=== PATIENT | male | born 1965 | race Hispanic/Latino ===

== ENCOUNTER 2023-08-19 12:05 | Inpatient (IN) | payer OTHER ==
--- OUTSIDE RECORDS SUMMARY | 2023-08-20 11:02 | XMS REPORT | Continuity of Care Document ---
Author Name Unknown Address [address] [facility] [place] [address] [facility] Address [address] 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 Role Phone OMAIRA RAGSDALE Primary Care Physician Unavailable WILLIAM OSEGUERA Attending Clinician Unavailable VERONICA CRAWLEY Attending Clinician UnavailTC Wylie Attending Clinician Unavailable Omaira Ragsdale MD Attending Clinician OMAIRA RAGSDALE Attending Clinician Neha FRANKY [place] Attending Clinician UnavailGloria Carvalho LCSW Attending Clinician [phone] Lab, Ang - Db Attending Clinician Unavailable Doctor Unassigned, [place] Attending Clinician Homer Rivers RN, Dar Morales Attending Clinician Unavail able REGINALDO PROCTOR Attending Clinician Unavailab Ezio Daniel MD Attending Clinician [phone] Reginaldo Proctor MD Attending Clinician [phone] Sara Astorga MD Attending Clinician [phone] Santos RM, Tito Palmer Attending Clinician [phone] CONNELLY, ARNALDO S Attending Clinician Unavailable Connelly PAC, Arnaldo S Attending Clinician [phone] [email or web address] Attending Clinician Unavailable JESSA DUENAS Attending Clinician UnavailJessa Wilson MD Attending Clinician + [phone] Joanna Mcclellan RN Attending Clinician Unavailable CHHAYA MEDEL Attending Clinician Unavailjoanie Medel MD, Chhaya Chavis Attending Clinician [phone] Pcp-Lab Attending Clinician Unavailable Alannah RM, Holger Attending Clinician [phone] GIL CORDERO Admitting Clinician Unavailable REGINALDO PROCTOR Admitting Clinician Unavailab Reginaldo Ashford MD Admitting Clinician [phone] [email or web address] Admitting Clinician Unavailable Jessa Duenas MD Admitting Clinician + [phone] JESSA DUENAS Admitting Clinician Unavaila CHHAYA Grigsby Admitting Clinician Unavailjoanie nick Payers Payer Name Policy Type Policy Number Effective Date Expirati on Date Source SELF-PAY CI [id number] MEDICARE PART A AND B [id number] 2004 00:00:00 [place] [employer] [place] STANDARD LIFE - PHCS (PPO) [id number] 2020 00:00:00 [facility] - S\\T\\S HEALTHCARE STRATEGIES - CIGNA (PPO) [id number] Problems Condition Name Condition Details Condition Category Status Onset Date Resolution Date Last Treatment Date Treating Clinician Comments Source Acute urinary retention Acute urinary retention Disease Active 2022-07 00:00: 00 [facility] Toxic metabolic encephalop athy Toxic metabolic encephalop athy Disease Active 2022-07 00:00: 00 [facility] Insomnia, unspecifie d Insomnia, unspecifie d Disease Active 2021-07 0-08 00:00: 00 [facility] Anemia, unspecifie d Anemia, unspecifie d Disease Active 2021-07 0-07 00:00: 00 [facility] Cerebral infarction , unspecifie d Cerebral infarction , unspecifie d Disease Active 2021-07 0-06 00:00: 00 [facility] Male erectile dysfunctio n, unspecifie d Male erectile dysfunctio n, unspecifie d Disease Active 2021-07 0-06 00:00: 00 [facility] Other muscle spasm Other muscle spasm Disease Active 2021-07 0-06 00:00: 00 [facility] Other specified inflammato ry liver diseases Other specified inflammato ry liver diseases Disease Active 2021-07 0-06 00:00: 00 [facility] Intertroch anteric fracture of right femur, closed, initial encounter Intertroch anteric fracture of right femur, closed, initial encounter Disease Active 2021-07 0- 00:00: 00 [facility] Nondisplac ed intertroch anteric fracture of right femur, subsequent encounter for closed fracture with routine healing Nondisplac ed intertroch anteric fracture of right femur, subsequent encounter for closed fracture with routine healing Disease Active 2021-07 0- 00:00: 00 [facility] Colon cancer screening Colon cancer screening Disease Active 3- 00:00: 00 Overview: Formattin g of this note might be different from the original. Added automatic ally from request for surgery [id number] [facility] Diabetic peripheral neuropathy Diabetic peripheral neuropathy Disease Active 1- 00:00: 00 [facility] Left hemiparesi s Left hemiparesi s Disease Active 1-04 00:00: 00 [facility] Uncontroll ed type 2 diabetes mellitus Uncontroll ed type 2 diabetes mellitus Disease Active 1-04 00:00: 00 [facility] History of cerebrovas cular accident History of cerebrovas cular accident Disease Active 3-03 00:00: 00 [facility] Hyperlipid emia, unspecifie d Hyperlipid emia, unspecifie d Disease Recurre nce 08-23 00:00: 00 Overview: Formattin g of this note might be different from the original. 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 [facility] Essential hypertensi on, benign Essential hypertensi on, benign Disease Active 08-23 00:00: 00 [facility] Back pain Back pain Disease Active 08-23 00:00: 00 [facility] Essential hypertensi on Essential hypertensi on Disease Recurre nce 08-23 00:00: 00 [facility] Low back pain, unspecifie d Low back pain, unspecifie d Disease Recurre nce 08-23 00:00: 00 [facility] Type 2 diabetes mellitus Type 2 diabetes mellitus Disease Active 08-23 00:00: 00 [facility] Allergies, Adverse Reactions, Alerts Allergy Name Allergy Type Status Severity Reaction(s) Onset Date Inactive Date Treating Clinician Comments Source Semaglut melo Propensi ty to adverse reaction s to drug Active Unknown - See comments 12-10 00:00: 00 Vomiting [facility] SEMAGLUT MELO DRUG INGREDI Active Unknown-Cmnt 12-10 00:00: 00 [facility] No Known Drug Allergie s DA Active U 2017-0 9-04 00:00: 00 [facility] No Known Allergie s DA Active U 2016-0 4-24 00:00: 00 [facility] Social History Social Habit Start Date Stop Date Quantity Comments Source [facility] Alcohol intake 2023-06-23 00:00:00 2023-06-23 00:00:00 Current non-drinker of alcohol (finding) [facility] History of Social function 2023-06-23 00:00:00 2023-06-23 00:00:00 [facility] Exposure to SARS-CoV-2 (event) 2022-04-02 00:00:00 2022-04-12 00:51:00 Not sure [facility] Tobacco use and exposure 2022-04-12 00:00:00 2022-04-12 00:00:00 Smokeless tobacco non-user [facility] Cigarettes smoked current (pack per day) - Reported 2022-04-12 00:00:00 2022-04-12 00:00:00 [facility] Cigarette pack-years 2022-04-12 00:00:00 2022-04-12 00:00:00 [facility] History of tobacco use 2009-08-23 00:00:00 Cigarette Smoker [facility] Sex Ass[birth year] At 1965 00:00:00 1965 00:00:00 [facility] Smoking Status Start Date Stop Date Source Ex-smoker 2022-04-12 00:00:00 [facility]22[facility] Ordered Medication Name Filled Medication Name Start Date Stop Date Current Medication? Ordering Clinician Indication Dosage Frequency Signature (SIG) Comments Components Source TONYA SANDERSON ULIN GLARG-YFGN, PEN 100 unit/mL (3 mL) [facility] - 00:00: 00 Yes [id number] INJECT 35 UNITS UNDER THE SKIN DAILY [facility] DILEEPGLJEMALINS ULIN GLARG-YFGN, PEN 100 unit/mL (3 mL) [facility] 07-17 00:00: 00 Yes [id number] INJECT 35 UNITS UNDER THE SKIN DAILY [facility] Cholecalcif susan, Vitamin D3, 1,250 mcg (50,000 unit) capsule 2022-07 00:00: 00 08-15 05:59 :00 Yes [id number] Take 1 capsule by mouth weekly for 8 doses. [facility] Cholecalcif susan, Vitamin D3, 1,250 mcg (50,000 unit) capsule 2022-07 00:00: 00 08-15 05:59 :00 Yes [id number] Take 1 capsule by mouth weekly for 8 doses. [facility] Cholecalcif susan, Vitamin D3, 1,250 mcg (50,000 unit) capsule 2022-07 00:00: 00 08-15 05:59 :00 Yes [id number] Take 1 capsule by mouth weekly for 8 doses. [facility] Cholecalcif susan, Vitamin D3, 1,250 mcg (50,000 unit) capsule 2022-07 00:00: 00 08-15 05:59 :00 Yes [id number] Take 1 capsule by mouth weekly for 8 doses. [facility] Cholecalcif susan, Vitamin D3, 1,250 mcg (50,000 unit) capsule 2022-07 00:00: 00 08-15 05:59 :00 Yes [id number] Take 1 capsule by mouth weekly for 8 doses. [facility] insulin glargine-yf gn (SEMGLEE,IN SULIN GLARG-YFGN, PEN) 100 unit/mL (3 mL) [facility] 2022-07 00:00: 00 Yes [id number] 35U inject 0.35 mL under the skin in the morning. [facility] insulin lispro-aabc (LYUMJEV KWIKPEN U-100 INSULIN) 100 unit/mL [facility] 2022-07 00:00: 00 Yes [id number] 5U inject 5 Units under the skin in the morning and 5 Units at noon and 5 Units in the evening. inject before meals. [facility] lisinopriL 20 mg tablet 2022-07 00:00: 00 Yes [id number] 20mg Take 1 tablet by mouth at bedtime. [facility] tiZANidine 4 mg tablet 2022-07 00:00: 00 Yes [id number] 4mg Take 1 tablet by mouth at bedtime as needed for Pain (scale 7-10) (back pain). [facility] Blood-Gluco se Sensor (FREESTYLE MARTIN 3 SENSOR) [facility] 2022-07 00:00: 00 Yes [id number] Use as directed [facility] insulin glargine-yf gn (SEMGLEE,IN SULIN GLARG-YFGN, PEN) 100 unit/mL (3 mL) [facility] 2022-07 00:00: 00 Yes [id number] 35U inject 0.35 mL under the skin in the morning. [facility] insulin lispro-aabc (LYUMJEV KWIKPEN U-100 INSULIN) 100 unit/mL [facility] 2022-07 00:00: 00 Yes [id number] 5U inject 5 Units under the skin in the morning and 5 Units at noon and 5 Units in the evening. inject before meals. [facility] lisinopriL 20 mg tablet 2022-07 00:00: 00 Yes [id number] 20mg Take 1 tablet by mouth at bedtime. [facility] tiZANidine 4 mg tablet 2022-07 00:00: 00 Yes [id number] 4mg Take 1 tablet by mouth at bedtime as needed for Pain (scale 7-10) (back pain). [facility] Blood-Gluco se Sensor (FREESTYLE MARTIN 3 SENSOR) [facility] 2022-07 00:00: 00 Yes [id number] Use as directed [facility] insulin glargine-yf gn (SEMGLEE,IN SULIN GLARG-YFGN, PEN) 100 unit/mL (3 mL) [facility] 2022-07 00:00: 00 Yes [id number] 35U inject 0.35 mL under the skin in the morning. [facility] insulin lispro-aabc (LYUMJEV KWIKPEN U-100 INSULIN) 100 unit/mL [facility] 2022-07 00:00: 00 Yes [id number] 5U inject 5 Units under the skin in the morning and 5 Units at noon and 5 Units in the evening. inject before meals. [facility] lisinopriL 20 mg tablet 2022-07 00:00: 00 Yes [id number] 20mg Take 1 tablet by mouth at bedtime. [facility] tiZANidine 4 mg tablet 2022-07 00:00: 00 Yes [id number] 4mg Take 1 tablet by mouth at bedtime as needed for Pain (scale 7-10) (back pain). [facility] Blood-Gluco se Sensor (FREESTYLE MARTIN 3 SENSOR) [facility] 2022-07 00:00: 00 Yes [id number] Use as directed [facility] insulin glargine-yf gn (SEMGLEE,IN SULIN GLARG-YFGN, PEN) 100 unit/mL (3 mL) [facility] 2022-07 00:00: 00 Yes [id number] 35U inject 0.35 mL under the skin in the morning. [facility] insulin lispro-aabc (LYUMJEV KWIKPEN U-100 INSULIN) 100 unit/mL [facility] 2022-07 00:00: 00 Yes [id number] 5U inject 5 Units under the skin in the morning and 5 Units at noon and 5 Units in the evening. inject before meals. [facility] lisinopriL 20 mg tablet 2022-07 00:00: 00 Yes [id number] 20mg Take 1 tablet by mouth at bedtime. [facility] tiZANidine 4 mg tablet 2022-07 00:00: 00 Yes [id number] 4mg Take 1 tablet by mouth at bedtime as needed for Pain (scale 7-10) (back pain). [facility] Blood-Gluco se Sensor (FREESTYLE MARTIN 3 SENSOR) [facility] 2022-07 00:00: 00 Yes [id number] Use as directed [facility] insulin glargine-yf gn (SEMGLEE,IN SULIN GLARG-YFGN, PEN) 100 unit/mL (3 mL) [facility] 2022-07 00:00: 00 Yes [id number] 35U inject 0.35 mL under the skin in the morning. [facility] insulin lispro-aabc (LYUMJEV KWIKPEN U-100 INSULIN) 100 unit/mL [facility] 2022-07 00:00: 00 Yes [id number] 5U inject 5 Units under the skin in the morning and 5 Units at noon and 5 Units in the evening. inject before meals. [facility] lisinopriL 20 mg tablet 2022-07 00:00: 00 Yes [id number] 20mg Take 1 tablet by mouth at bedtime. [facility] tiZANidine 4 mg tablet 2022-07 00:00: 00 Yes [id number] 4mg Take 1 tablet by mouth at bedtime as needed for Pain (scale 7-10) (back pain). [facility] Blood-Gluco se Sensor (FREESTYLE MARTIN 3 SENSOR) 2022-07 00:00: 00 Yes [id number] Use as directed [facility] insulin lispro-aabc (LYUMJEV KWIKPEN U-100 INSULIN) 100 unit/mL [facility] 2022-07 00:00: 00 Yes [id number] 5U inject 5 Units under the skin in the morning and 5 Units at noon and 5 Units in the evening. inject before meals. [facility] lisinopriL 20 mg tablet 2022-07 00:00: 00 Yes [id number] 20mg Take 1 tablet by mouth at bedtime. [facility] tiZANidine 4 mg tablet 2022-07 00:00: 00 Yes [id number] 4mg Take 1 tablet by mouth at bedtime as needed for Pain (scale 7-10) (back pain). [facility] Blood-Gluco se Sensor (FREESTYLE MARTIN 3 SENSOR) 2022-07 00:00: 00 Yes [id number] Use as directed [facility] insulin glargine-yf gn (SEMGLEE,IN SULIN GLARG-YFGN, PEN) 100 unit/mL (3 mL) [facility] 2022-07 00:00: 00 Yes [id number] Inject 35 units subcutaneo us daily [facility] insulin lispro-aabc (LYUMJEV KWIKPEN U-100 INSULIN) 100 unit/mL [facility] 2022-07 00:00: 00 Yes [id number] 5U inject 5 Units under the skin in the morning and 5 Units at noon and 5 Units in the evening. inject before meals. [facility] lisinopriL 20 mg tablet 2022-07 00:00: 00 Yes [id number] 20mg Take 1 tablet by mouth at bedtime. [facility] tiZANidine 4 mg tablet 2022-07 00:00: 00 Yes [id number] 4mg Take 1 tablet by mouth at bedtime as needed for Pain (scale 7-10) (back pain). [facility] Blood-Gluco se Sensor (FREESTYLE MARTIN 3 SENSOR) 2022-07 00:00: 00 Yes [id number] Use as directed [facility] insulin glargine-yf gn (SEMGLEE,IN SULIN GLARG-YFGN, PEN) 100 unit/mL (3 mL) [facility] 2022-07 00:00: 00 Yes [id number] Inject 35 units subcutaneo us daily [facility] insulin lispro-aabc (LYUMJEV KWIKPEN U-100 INSULIN) 100 unit/mL [facility] 2022-07 00:00: 00 Yes [id number] 5U inject 5 Units under the skin in the morning and 5 Units at noon and 5 Units in the evening. inject before meals. [facility] lisinopriL 20 mg tablet 2022-07 00:00: 00 Yes [id number] 20mg Take 1 tablet by mouth at bedtime. [facility] tiZANidine 4 mg tablet 2022-07 00:00: 00 Yes [id number] 4mg Take 1 tablet by mouth at bedtime as needed for Pain (scale 7-10) (back pain). [facility] Blood-Gluco se Sensor (FREESTYLE MARTIN 3 SENSOR) 2022-07 00:00: 00 Yes [id number] Use as directed [facility] insulin glargine-yf gn (SEMGLEE,IN SULIN GLARG-YFGN, PEN) 100 unit/mL (3 mL) [facility] 2022-07 00:00: 00 Yes [id number] Inject 35 units subcutaneo us daily [facility] insulin lispro-aabc (LYUMJEV KWIKPEN U-100 INSULIN) 100 unit/mL [facility] 2022-07 00:00: 00 Yes [id number] 5U inject 5 Units under the skin in the morning and 5 Units at noon and 5 Units in the evening. inject before meals. [facility] lisinopriL 20 mg tablet 2022-07 00:00: 00 Yes [id number] 20mg Take 1 tablet by mouth at bedtime. [facility] tiZANidine 4 mg tablet 2022-07 00:00: 00 Yes [id number] 4mg Take 1 tablet by mouth at bedtime as needed for Pain (scale 7-10) (back pain). [facility] Blood-Gluco se Sensor (FREESTYLE MARTIN 3 SENSOR) 2022-07 00:00: 00 Yes [id number] Use as directed [facility] insulin glargine-yf gn (SEMGLEE,IN SULIN GLARG-YFGN, PEN) 100 unit/mL (3 mL) [facility] 2022-07 00:00: 00 Yes [id number] Inject 35 units subcutaneo us daily [facility] insulin lispro-aabc (LYUMJEV KWIKPEN U-100 INSULIN) 100 unit/mL [facility] 2022-07 00:00: 00 Yes [id number] 5U inject 5 Units under the skin in the morning and 5 Units at noon and 5 Units in the evening. inject before meals. [facility] lisinopriL 20 mg tablet 2022-07 00:00: 00 Yes [id number] 20mg Take 1 tablet by mouth at bedtime. [facility] tiZANidine 4 mg tablet 2022-07 00:00: 00 Yes [id number] 4mg Take 1 tablet by mouth at bedtime as needed for Pain (scale 7-10) (back pain). [facility] Blood-Gluco se Sensor (FREESTYLE MARTIN 3 SENSOR) 2022-07 00:00: 00 Yes [id number] Use as directed [facility] insulin glargine-yf gn (SEMGLEE,IN SULIN GLARG-YFGN, PEN) 100 unit/mL (3 mL) [facility] 2022-07 00:00: 00 Yes [id number] Inject 35 units subcutaneo us daily [facility] insulin lispro-aabc (LYUMJEV KWIKPEN U-100 INSULIN) 100 unit/mL In 2022-07 00:00: 00 Yes [id number] 5U inject 5 Units under the skin in the morning and 5 Units at noon and 5 Units in the evening. inject before meals. [facility] lisinopriL 20 mg tablet 2022-07 00:00: 00 Yes [id number] 20mg Take 1 tablet by mouth at bedtime. [facility] tiZANidine 4 mg tablet 2022-07 00:00: 00 Yes [id number] 4mg Take 1 tablet by mouth at bedtime as needed for Pain (scale 7-10) (back pain). [facility] Blood-Gluco se Sensor (FREESTYLE MARTIN 3 SENSOR) [facility] 2022-07 00:00: 00 Yes [id number] Use as directed [facility] insulin glargine-yf gn (SEMGLEE,IN SULIN GLARG-YFGN, PEN) 100 unit/mL (3 mL) [facility] 2022-07 00:00: 00 Yes [id number] Inject 35 units subcutaneo us daily [facility] insulin lispro-aabc (LYUMJEV KWIKPEN U-100 INSULIN) 100 unit/mL [facility] 2022-07 00:00: 00 Yes [id number] 5U inject 5 Units under the skin in the morning and 5 Units at noon and 5 Units in the evening. inject before meals. [facility] lisinopriL 20 mg tablet 2022-07 00:00: 00 Yes [id number] 20mg Take 1 tablet by mouth at bedtime. [facility] tiZANidine 4 mg tablet 2022-07 00:00: 00 Yes [id number] 4mg Take 1 tablet by mouth at bedtime as needed for Pain (scale 7-10) (back pain). [facility] Blood-Gluco se Sensor (FREESTYLE MARTIN 3 SENSOR) [facility] 2022-07 00:00: 00 Yes [id number] Use as directed [facility] insulin glargine-yf gn (SEMGLEE,IN SULIN GLARG-YFGN, PEN) 100 unit/mL (3 mL) [facility] 2022-07 00:00: 00 Yes [id number] Inject 35 units subcutaneo us daily [facility] insulin lispro-aabc (LYUMJEV KWIKPEN U-100 INSULIN) 100 unit/mL [facility] 2022-07 00:00: 00 Yes [id number] 5U inject 5 Units under the skin in the morning and 5 Units at noon and 5 Units in the evening. inject before meals. [facility] lisinopriL 20 mg tablet 2022-07 00:00: 00 Yes [id number] 20mg Take 1 tablet by mouth at bedtime. [facility] tiZANidine 4 mg tablet 2022-07 00:00: 00 Yes [id number] 4mg Take 1 tablet by mouth at bedtime as needed for Pain (scale 7-10) (back pain). [facility] Blood-Gluco se Sensor (FREESTYLE MARTIN 3 SENSOR) 2022-07 00:00: 00 Yes [id number] Use as directed [facility] insulin lispro-aabc (LYUMJEV KWIKPEN U-100 INSULIN) 100 unit/mL [facility] 2022-07 00:00: 00 Yes [id number] 5U inject 5 Units under the skin in the morning and 5 Units at noon and 5 Units in the evening. inject before meals. [facility] lisinopriL 20 mg tablet 2022-07 00:00: 00 Yes [id number] 20mg Take 1 tablet by mouth at bedtime. [facility] tiZANidine 4 mg tablet 2022-07 00:00: 00 Yes [id number] 4mg Take 1 tablet by mouth at bedtime as needed for Pain (scale 7-10) (back pain). [facility] Blood-Gluco se Sensor (FREESTYLE MARTIN 3 SENSOR) 2022-07 00:00: 00 Yes [id number] Use as directed [facility] insulin glargine-yf gn (SEMGLEE,IN SULIN GLARG-YFGN, PEN) 100 unit/mL (3 mL) [facility] 2022-07 00:00: 00 07-17 00:00 :00 No [id number] Inject 35 units subcutaneo us daily [facility] insulin glargine-yf gn (SEMGLEE,IN SULIN GLARG-YFGN, PEN) 100 unit/mL (3 mL) [facility] 2022-07 00:00: 00 06-23 00:00 :00 No [id number] 35U inject 0.35 mL under the skin in the morning. [facility] tamsulosin 0.4 mg 24 hr capsule 2022-07 00:00: 00 Yes [id number] .4mg Take 1 capsule by mouth in the morning. [facility] tamsulosin 0.4 mg 24 hr capsule 202207-28 00:00: 00 Yes [id number] .4mg Take 1 capsule by mouth in the morning. [facility] tamsulosin 0.4 mg 24 hr capsule 2022-07 00:00: 00 Yes [id number] .4mg Take 1 capsule by mouth in the morning. [facility] tamsulosin 0.4 mg 24 hr capsule 2022-07 00:00: 00 Yes [id number] .4mg Take 1 capsule by mouth in the morning. [facility] tamsulosin 0.4 mg 24 hr capsule 2022-07 00:00: 00 Yes [id number] .4mg Take 1 capsule by mouth in the morning. [facility] tamsulosin 0.4 mg 24 hr capsule 07-28 00:00: 00 Yes [id number] .4mg Take 1 capsule by mouth in the morning. [facility] tamsulosin 0.4 mg 24 hr capsule 07-28 00:00: 00 Yes [id number] .4mg Take 1 capsule by mouth in the morning. [facility] tamsulosin 0.4 mg 24 hr capsule 07-28 00:00: 00 Yes [id number] .4mg Take 1 capsule by mouth in the morning. [facility] tamsulosin 0.4 mg 24 hr capsule 2022-07 00:00: 00 Yes [id number] .4mg Take 1 capsule by mouth in the morning. [facility] tamsulosin 0.4 mg 24 hr capsule 2022-07 00:00: 00 Yes [id number] .4mg Take 1 capsule by mouth in the morning. [facility] tamsulosin 0.4 mg 24 hr capsule 202207-28 00:00: 00 Yes [id number] .4mg Take 1 capsule by mouth in the morning. [facility] tamsulosin 0.4 mg 24 hr capsule 2022-07 00:00: 00 Yes [id number] .4mg Take 1 capsule by mouth in the morning. [facility] tamsulosin 0.4 mg 24 hr capsule 202207-28 00:00: 00 Yes [id number] .4mg Take 1 capsule by mouth in the morning. [facility] tamsulosin 0.4 mg 24 hr capsule 202207-28 00:00: 00 Yes [id number] .4mg Take 1 capsule by mouth in the morning. [facility] tamsulosin 0.4 mg 24 hr capsule 2022-07 00:00: 00 Yes [id number] .4mg Take 1 capsule by mouth in the morning. [facility] tamsulosin 0.4 mg 24 hr capsule 202207-28 00:00: 00 Yes [id number] .4mg Take 1 capsule by mouth in the morning. [facility] tamsulosin 0.4 mg 24 hr capsule 3 07-28 00:00: 00 Yes [id number] .4mg Take 1 capsule by mouth in the morning. [facility] tamsulosin 0.4 mg 24 hr capsule [facility] 07-28 00:00: 00 Yes [id number] .4mg Take 1 capsule by mouth in the morning. [facility] tamsulosin 0.4 mg 24 hr capsule 2022-07 00:00: 00 Yes [id number] .4mg Take 1 capsule by mouth in the morning. [facility] lisinopriL 10 mg tablet 2022-07 00:00: 00 Yes [id number] 10mg Take 1 tablet by mouth at bedtime. [facility] atorvastati n 80 mg tablet 2022-07 00:00: 00 Yes [id number] 80mg Take 1 tablet by mouth at bedtime. [facility] insulin glargine-yf gn (SEMGLEE,IN SULIN GLARG-YFGN, PEN) 100 unit/mL (3 mL) [facility] 2022-07 00:00: 00 Yes [id number] 30U inject 0.3 mL under the skin in the morning. [facility] insulin lispro-aabc (LYUMJEV KWIKPEN U-100 INSULIN) 100 unit/mL [facility] 2022-07 00:00: 00 Yes [id number] 5U inject 5 Units under the skin in the morning and 5 Units at noon and 5 Units in the evening. inject before meals. [facility] Insulin [place], Disposable, (BD ULTRA-FINE MICRO PEN NEEDLE) 32 gauge x 1/4" Ndle 2022-07 00:00: 00 Yes [id number] Use as directed [facility] lancets 33 gauge Misc 2022-07 00:00: 00 Yes [id number] Use as directed [facility] Blood-Gluco se Meter Kit 2022-07 00:00: 00 Yes [id number] Use as directed [facility] blood sugar diagnostic (BLOOD GLUCOSE TEST) strip 2022-07 00:00: 00 Yes [id number] Use as directed [facility] lisinopriL 10 mg tablet 2022-07 00:00: 00 Yes [id number] 10mg Take 1 tablet by mouth at bedtime. [facility] atorvastati n 80 mg tablet 2022-07 00:00: 00 Yes [id number] 80mg Take 1 tablet by mouth at bedtime. [facility] insulin glargine-yf gn (SEMGLEE,IN SULIN GLARG-YFGN, PEN) 100 unit/mL (3 mL) [facility] 2022-07 00:00: 00 Yes [id number] 30U inject 0.3 mL under the skin in the morning. [facility] insulin lispro-aabc (LYUMJEV KWIKPEN U-100 INSULIN) 100 unit/mL [facility] 2022-07 00:00: 00 Yes [id number] 5U inject 5 Units under the skin in the morning and 5 Units at noon and 5 Units in the evening. inject before meals. [facility] Insulin [place], Disposable, (BD ULTRA-FINE MICRO PEN NEEDLE) 32 gauge x 1/4" Ndle 2022-07 00:00: 00 Yes [id number] Use as directed [facility] lancets 33 gauge Misc 2022-07 00:00: 00 Yes [id number] Use as directed [facility] Blood-Gluco se Meter Kit 2022-07 00:00: 00 Yes [id number] Use as directed [facility] blood sugar diagnostic (BLOOD GLUCOSE TEST) strip 2022-07 00:00: 00 Yes [id number] Use as directed [facility] lisinopriL 10 mg tablet 2022-07 00:00: 00 Yes [id number] 10mg Take 1 tablet by mouth at bedtime. [facility] atorvastati n 80 mg tablet 2022-07 00:00: 00 Yes [id number] 80mg Take 1 tablet by mouth at bedtime. [facility] insulin glargine-yf gn (SEMGLEE,IN SULIN GLARG-YFGN, PEN) 100 unit/mL (3 mL) [facility] 2022-07 00:00: 00 Yes [id number] 30U inject 0.3 mL under the skin in the morning. [facility] insulin lispro-aabc (LYUMJEV KWIKPEN U-100 INSULIN) 100 unit/mL [facility] 2022-07 00:00: 00 Yes [id number] 5U inject 5 Units under the skin in the morning and 5 Units at noon and 5 Units in the evening. inject before meals. [facility] Insulin [place], Disposable, (BD ULTRA-FINE MICRO PEN NEEDLE) 32 gauge x 1/4" Ndle 2022-07 00:00: 00 Yes [id number] Use as directed [facility] lancets 33 gauge Misc 2022-07 00:00: 00 Yes [id number] Use as directed [facility] Blood-Gluco se Meter Kit 2022-07 00:00: 00 Yes [id number] Use as directed [facility] blood sugar diagnostic (BLOOD GLUCOSE TEST) strip 2022-07 00:00: 00 Yes [id number] Use as directed [facility] lisinopriL 10 mg tablet 2022-07 00:00: 00 Yes [id number] 10mg Take 1 tablet by mouth at bedtime. [facility] atorvastati n 80 mg tablet 2022-07 00:00: 00 Yes [id number] 80mg Take 1 tablet by mouth at bedtime. [facility] insulin glargine-yf gn (SEMGLEE,IN SULIN GLARG-YFGN, PEN) 100 unit/mL (3 mL) [facility] 2022-07 00:00: 00 Yes [id number] 30U inject 0.3 mL under the skin in the morning. [facility] insulin lispro-aabc (LYUMABHIJITV KWESIIKPEN U-100 INSULIN) 100 unit/mL [facility] 2022-07 00:00: 00 Yes [id number] 5U inject 5 Units under the skin in the morning and 5 Units at noon and 5 Units in the evening. inject before meals. [facility] Insulin [place], Disposable, (BD ULTRA-FINE MICRO PEN NEEDLE) 32 gauge x 1/4" Ndle 2022-07 00:00: 00 Yes [id number] Use as directed [facility] lancets 33 gauge Misc 2022-07 00:00: 00 Yes [id number] Use as directed [facility] Blood-Gluco se Meter Kit 2022-07 00:00: 00 Yes [id number] Use as directed [facility] blood sugar diagnostic (BLOOD GLUCOSE TEST) strip 2022-07 00:00: 00 Yes [id number] [facility] tablet [facility]-07 00:00: 00 Yes [id number] 80mg Take 1 tablet by mouth at bedtime. [facility] Insulin [place], Disposable, (BD ULTRA-FINE MICRO PEN NEEDLE) 32 gauge x 1/4" Ndle 2022-07 00:00: 00 Yes [id number] Use as directed [facility] lancets 33 gauge Misc 2022-07 00:00: 00 Yes [id number] Use as directed [facility] Blood-Gluco [facility] Meter Kit 2022-07 00:00: 00 Yes [id number] Use as directed [facility] blood sugar diagnostic (BLOOD GLUCOSE TEST) strip 2022-07 00:00: 00 Yes [id number] Use as directed [facility] atorvastati n 80 mg tablet 2022-07 00:00: 00 Yes [id number] 80mg Take 1 tablet by mouth at bedtime. [facility] Insulin [place], Disposable, (BD ULTRA-FINE MICRO PEN NEEDLE) 32 gauge x 1/4" Ndle 2022-07 00:00: 00 Yes [id number] Use as directed [facility] lancets 33 gauge Misc 2022-07 00:00: 00 Yes [id number] Use as directed [facility] Blood-Gluco se Meter Kit 2022-07 00:00: 00 Yes [id number] Use as directed [facility] blood sugar diagnostic (BLOOD GLUCOSE TEST) strip 2022-07 00:00: 00 Yes [id number] Use as directed [facility] atorvastati n 80 mg tablet 2022-07 00:00: 00 Yes [id number] 80mg Take 1 tablet by mouth at bedtime. [facility] Insulin [place], Disposable, (BD ULTRA-FINE MICRO PEN NEEDLE) 32 gauge x 1/4" Ndle 2022-07 00:00: 00 Yes [id number] Use as directed [facility] lancets 33 gauge Misc 2022-07 00:00: 00 Yes [id number] Use as directed [facility] Blood-Gluco se Meter Kit 2022-07 00:00: 00 Yes [id number] Use as directed [facility] blood sugar diagnostic (BLOOD GLUCOSE TEST) strip 2022-07 00:00: 00 Yes [id number] Use as directed [facility] atorvast[facility] 80 mg tablet 2022-07 00:00: 00 Yes [id number] 80mg Take 1 tablet by mouth at bedtime. [facility] Insulin [place], Disposable, (BD ULTRA-FINE MICRO PEN NEEDLE) 32 gauge x 1/4" Ndle 2022-07 00:00: 00 Yes [id number] Use as directed [facility] lancets 33 gauge Misc 2022-07 00:00: 00 Yes [id number] Use as directed [facility] Blood-Gluco se Meter Kit 2022-07 00:00: 00 Yes [id number] Use as directed [facility] blood sugar diagnostic (BLOOD GLUCOSE TEST) strip 2022-07 00:00: 00 Yes [id number] Use as directed [facility] atorvastati n 80 mg tablet 2022-07 00:00: 00 Yes [id number] 80mg Take 1 tablet by mouth at bedtime. [facility] Insulin [place], Disposable, (BD ULTRA-FINE MICRO PEN NEEDLE) 32 gauge x 1/4" Ndle 2022-07 00:00: 00 Yes [id number] Use as directed [facility] lancets 33 gauge Misc 2022-07 00:00: 00 Yes [id number] Use as directed [facility] Blood-Gluco [facility] Meter Kit 2022-07 00:00: 00 Yes [id number] Use as directed [facility] blood sugar diagnostic (BLOOD GLUCOSE TEST) strip 2022-07 00:00: 00 Yes [id number] Use as directed [facility] atorvastati n 80 mg tablet 2022-07 00:00: 00 Yes [id number] 80mg Take 1 tablet by mouth at bedtime. [facility] Insulin [place], Disposable, (BD ULTRA-FINE MICRO PEN NEEDLE) 32 gauge x 1/4" Ndle 2022-07 00:00: 00 Yes [id number] Use as directed [facility] lancets 33 gauge Misc 2022-07 00:00: 00 Yes [id number] Use as directed [facility] Blood-Gluco se Meter Kit 2022-07 00:00: 00 Yes [id number] Use as directed [facility] blood sugar diagnostic (BLOOD GLUCOSE TEST) strip 2022-07 00:00: 00 Yes [id number] Use as directed [facility] atorvast[facility] n 80 mg tablet 2022-07 00:00: 00 Yes [id number] 80mg Take 1 tablet by mouth at bedtime. [facility] Insulin [place], Disposable, (BD ULTRA-FINE MICRO PEN NEEDLE) 32 gauge x 1/4" Ndle 2022-07 00:00: 00 Yes [id number] Use as directed [facility] lancets 33 gauge Misc 2022-07 00:00: 00 Yes [id number] Use as directed [facility] Blood-Gluco [facility] Meter Kit 2022-07 00:00: 00 Yes [id number] Use as directed [facility] blood sugar diagnostic (BLOOD GLUCOSE TEST) strip 2022-07 00:00: 00 Yes [id number] Use as directed [facility] atorvastati n 80 mg tablet 2022-07 00:00: 00 Yes [id number] 80mg Take 1 tablet by mouth at bedtime. [facility] Insulin [place], Disposable, (BD ULTRA-FINE MICRO PEN NEEDLE) 32 gauge x 1/4" Ndle 2022-07 00:00: 00 Yes [id number] Use as directed [facility] lancets 33 gauge Misc 2022-07 00:00: 00 Yes [id number] Use as directed [facility] Blood-Gluco se Meter Kit 2022-07 00:00: 00 Yes [id number] Use as directed [facility] blood sugar diagnostic (BLOOD GLUCOSE TEST) strip 2022-07 00:00: 00 Yes [id number] Use as directed [facility] atorvastati n 80 mg tablet 2022-07 00:00: 00 Yes [id number] 80mg Take 1 tablet by mouth at bedtime. [facility] Insulin [place], Disposable, (BD ULTRA-FINE MICRO PEN NEEDLE) 32 gauge x 1/4" Ndle 2022-07 00:00: 00 Yes [id number] Use as directed [facility] lancets 33 gauge Misc 2022-07 00:00: 00 Yes [id number] Use as directed [facility] Blood-Gluco se Meter Kit 2022-07 00:00: 00 Yes [id number] Use as directed [facility] blood sugar diagnostic (BLOOD GLUCOSE TEST) strip 2022-07 00:00: 00 Yes [id number] Use as directed [facility] at[facility] 80 mg tablet 2022-07 00:00: 00 Yes [id number] 80mg Take 1 tablet by mouth at bedtime. [facility] Insulin [place], Disposable, (BD ULTRA-FINE MICRO PEN NEEDLE) 32 gauge x 1/4" Ndle 2022-07 00:00: 00 Yes [id number] Use as directed [facility] lancets 33 gauge Misc 2022-07 00:00: 00 Yes [id number] Use as directed [facility] Blood-Gluco se Meter Kit 2022-07 00:00: 00 Yes [id number] Use [facility] directed [facility] sugar diagnostic (BLOOD GLUCOSE TEST) strip 2022-07 00:00: 00 Yes [id number] Use as directed [facility] atorvastati n 80 mg tablet 2022-07 00:00: 00 Yes [id number] 80mg Take 1 tablet by mouth at bedtime. [facility] Insulin [place], Disposable, (BD ULTRA-FINE MICRO PEN NEEDLE) 32 gauge x 1/4" Ndle 2022-07 00:00: 00 Yes [id number] Use as directed [facility] lancets 33 gauge Misc 2022-07 00:00: 00 Yes [id number] Use as directed [facility] Blood-Gluco se Meter Kit 2022-07 00:00: 00 Yes [id number] Use as directed [facility] blood sugar diagnostic (BLOOD GLUCOSE TEST) strip 2022-07 00:00: 00 Yes [id number] Use as directed [facility] atorvastati n 80 mg tablet 2022-07 00:00: 00 Yes [id number] 80mg Take 1 tablet by mouth at bedtime. [facility] Insulin [place], Disposable, (BD ULTRA-FINE MICRO PEN NEEDLE) 32 gauge x 1/4" Ndle 2022-07 00:00: 00 Yes [id number] Use as directed [facility] lancets 33 gauge Misc 2022-07 00:00: 00 Yes [id number] Use as directed [facility] Blood-Gluco se Meter Kit 2022-07 00:00: 00 Yes [id number] Use as directed [facility] blood sugar diagnostic (BLOOD GLUCOSE TEST) strip 2022-07 00:00: 00 Yes [id number] Use as directed [facility] atorvastati n 80 mg tablet 2022-07 00:00: 00 Yes [id number] 80mg Take 1 tablet by mouth at bedtime. [facility] Insulin [place], Disposable, (BD ULTRA-FINE MICRO PEN NEEDLE) 32 gauge x 1/4" Ndle 2022-07 00:00: 00 Yes [id number] Use as directed [facility] lancets 33 gauge Misc 2022-07 00:00: 00 Yes [id number] Use as directed [facility] Blood-Gluco se Meter Kit 2022-07 00:00: 00 Yes [id number] Use as directed [facility] blood sugar diagnostic (BLOOD GLUCOSE TEST) strip 2022-07 00:00: 00 Yes [id number] Use as directed [facility] atorvastati n 80 mg tablet 2022-07 00:00: 00 Yes [id number] 80mg Take 1 tablet by mouth at bedtime. [facility] Insulin [place], Disposable, (BD ULTRA-FINE MICRO PEN NEEDLE) 32 gauge x 1/4" Ndle 2022-07 00:00: 00 Yes [id number] Use as directed [facility] lancets 33 gauge Misc 2022-07 00:00: 00 Yes [id number] Use as directed [facility] Blood-Gluco se Meter Kit 2022-07 00:00: 00 Yes [id number] Use as directed [facility] blood sugar diagnostic (BLOOD GLUCOSE TEST) strip 2022-07 00:00: 00 Yes [id number] Use as directed [facility] lisinopriL 10 mg tablet 2022-07 00:00: 00 Yes [id number] 10mg Take 1 tablet by mouth at bedtime. [facility] atorvastati n 80 mg tablet 2022-07 00:00: 00 Yes [id number] 80mg Take 1 tablet by mouth at bedtime. [facility] insulin glargine-yf gn (MARIA E,IN ERIC GLARG-YFGN, PEN) 100 unit/mL (3 mL) [facility] 2022-07 00:00: 00 Yes [id number] 30U inject 0.3 mL under the skin in the morning. [facility] insulin lispro-aabc (LYUMJEV KWIKPEN U-100 INSULIN) 100 unit/mL [facility] 2022-07 00:00: 00 Yes [id number] 5U inject 5 Units under the skin in the morning and 5 Units at noon and 5 Units in the evening. inject before meals. [facility] Insulin [place], Disposable, (BD ULTRA-FINE MICRO PEN NEEDLE) 32 gauge x 1/4" Ndle 2022-07 00:00: 00 Yes [id number] Use as directed [facility] lancets 33 gauge Misc 2022-07 00:00: 00 Yes [id number] Use as directed [facility] Blood-Gluco se Meter Kit 2022-07 00:00: 00 Yes [id number] Use as directed [facility] blood sugar diagnostic (BLOOD GLUCOSE TEST) strip 2022-07 00:00: 00 Yes [id number] Use as directed [facility] lisinopriL 10 mg tablet 2022-07 00:00: 00 06-23 00:00 :00 No [id number] 10mg Take 1 tablet by mouth at bedtime. [facility] insulin glargine-yf gn (SEMGLEE,IN SULIN GLARG-YFGN, PEN) 100 unit/mL (3 mL) [facility] 2022-07 00:00: 00 06-23 00:00 :00 No [id number] 30U inject 0.3 mL under the skin in the morning. [facility] insulin lispro-aabc (LYUMJEV KWIKPEN U-100 INSULIN) 100 unit/mL [facility] 2022-07 00:00: 00 06-23 00:00 :00 No [id number] 5U inject 5 Units under the skin in the morning and 5 Units at noon and 5 Units in the evening. inject before meals. [facility] lisinopriL 10 mg tablet 2022-07 00:00: 00 06-23 00:00 :00 No [id number] 10mg Take 1 tablet by mouth at bedtime. [facility] insulin glargine-yf gn (SEMGLEE,IN SULIN GLARG-YFGN, PEN) 100 unit/mL (3 mL) [facility] 2022-07 00:00: 00 06-23 00:00 :00 No [id number] 30U inject 0.3 mL under the skin in the morning. [facility] insulin lispro-aabc (LYUMJEV KWIKPEN U-100 INSULIN) 100 unit/mL [facility] 2022-07 00:00: 00 06-23 00:00 :00 No [id number] 5U inject 5 Units under the skin in the morning and 5 Units at noon and 5 Units in the evening. inject before meals. [facility] lisinopriL 10 mg tablet 2022-07 00:00: 00 06-23 00:00 :00 No [id number] 10mg Take 1 tablet by mouth at bedtime. [facility] insulin glargine-yf gn (SEMGLEE,IN SULIN GLARG-YFGN, PEN) 100 unit/mL (3 mL) [facility] 2022-07 00:00: 00 06-23 00:00 :00 No [id number] 30U inject 0.3 mL under the skin in the morning. [facility] insulin lispro-aabc (LYUMJEV KWIKPEN U-100 INSULIN) 100 unit/mL [facility] 2022-07 00:00: 00 06-23 00:00 :00 No [id number] 5U inject 5 Units under the skin in the morning and 5 Units at noon and 5 Units in the evening. inject before meals. [facility] Insulin [place], Disposable, (BD ULTRA-FINE MICRO PEN NEEDLE) 32 gauge x 1/4" Ndle 2022-07 00:00: 00 05-27 00:00 :00 No [id number] Use as directed [facility] insulin glargine-yf gn (SEMGLEE,IN SULIN GLARG-YFGN, PEN) 100 unit/mL (3 mL) [facility] 2022-07 00:00: 00 05-27 00:00 :00 No [id number] 30U inject 0.3 mL under the skin in the morning for 30 days. [facility] insulin lispro-aabc (LYUMJEV KWIKPEN U-100 INSULIN) 100 unit/mL [facility] 2022-07 00:00: 00 05-27 00:00 :00 No [id number] 5U inject 5 Units under the skin in the morning and 5 Units at noon and 5 Units in the evening. inject before meals. Do all this for 30 days. [facility] lancets 33 gauge Misc 2022-07 00:00: 00 05-27 00:00 :00 No [id number] Use as directed [facility] Blood-Gluco se Meter (FREESTYLE FREEDOM) Kit 2022-07 00:00: 00 05-27 00:00 :00 No [id number] Use as directed [facility] blood sugar diagnostic (FREESTYLE LITE STRIPS) strip 2022-07 00:00: 00 05-27 00:00 :00 No [id number] Use as directed [facility] insulin glargine (LANTUS U-100) injection 30 Units 2022-07 15:00: 00 Yes 30U 30 Units, Subcutaneo us, DAILY, First dose on Thu05/26/23 at 0900, Until Discontinu ed, Routine [facility] thiamine (VITAMIN B1) tablet 100 mg 2022-07 15:00: 00 Yes 100mg 100 mg, Oral, DAILY, First dose on Thu05/26/23 at 0900, Until Discontinu ed, Routine [facility] KCL (KLOR-CON M20) tablet 40 mEq 2022-07 14:00: 00 05-26 17:40 :00 No 40meq 40 mEq, Oral, Q2H, 2 doses, First dose on Thu05/26/23 at 0800, Last dose on Thu05/26/23 at 1000, Routine [facility] atorvastati n (LIPITOR) tablet 80 mg 2022-07 03:00: 00 Yes 80mg 80 mg, Oral, QHS, First dose on Thu05/25/23 at 2100, Until Discontinu ed, Routine [facility] D5W 0.45% NaCl (1/2NS) IV infusion 1,000 mL 2022-07 21:15: 00 05-26 16:45 :02 No 1000mL at 125 mL/hr, 1,000 mL, IV Infusion, CONTINUOUS , Starting on Thu05/25/23 at 1515, Until Thu05/26/23 at 1045, Routine [facility] proMETHazin e (PHENERGAN) 12.5 mg in NS 50 mL IV piggyback (CNR) 2022-07 18:00: 00 05-25 18:37 :00 No 12.5mg 12.5 mg, IV Piggyback, at 200 mL/hr Administer over 15 Minutes, ONCE, 1 dose, On Thu05/25/23 at 1200, Routine [facility] NaCl 0.9% (NS) IV infusion 1,000 mL 2022-07 15:15: 00 05-25 20:17 :15 No 1000mL at 125 mL/hr, IV Infusion, CONTINUOUS , Starting on Thu05/25/23 at 0915, Until Thu05/25/23 at 1417, Routine [facility] tamsulosin (FLOMAX) capsule 0.4 mg 2022-07 15:00: 00 Yes .4mg 0.4 mg, Oral, DAILY, First dose on Thu05/25/23 at 0900, Until Discontinu ed, Routine [facility] insulin lispro (human) (HumaLOG U-100) injection 5 Units 2022-07 15:00: 00 Yes 5U 5 Units, Subcutaneo , [facility], First dose on Thu05/25/23 at 0900, Until Discontinu ed, Routine [facility] pantoprazol e (PROTONIX) EC tablet 40 mg 2022-07 15:00: 00 Yes 40mg 40 mg, Oral, DAILY, First dose on Thu05/25/23 at 0900, Until Discontinu ed, Routine [facility] foLIC acid (FOLATE) tablet 1 mg 2022-07 15:00: 00 Yes 1mg 1 mg, Oral, DAILY, First dose on Thu05/25/23 at 0900, Until Discontinu ed, Routine [facility] docusate (COLACE) capsule 100 mg 2022-07 15:00: 00 Yes 100mg 100 mg, Oral, DAILY, First dose on Thu05/25/23 at 0900, Until Discontinu ed, Routine [facility] insulin glargine (LANTUS U-100) injection 10 Units 2022-07 15:00: 00 05-25 15:36 :00 No 10U 10 Units, Subcutaneo us, ONCE, 1 dose, On Thu05/25/23 at 0900, Routine [facility] thiamine (VITAMIN B1) 100 mg in NaCl 0.9% (NS) piggyback 2022-07 15:00: 00 05-25 15:57 :00 No 100mg IV Piggyback, DAILY, 1 dose, First dose on Thu05/25/23 at 0900, 50 mL [facility] ondansetron (ZOFRAN (PF)) injection 4 mg 2022-07 14:41: 34 Yes 4mg 4 mg, Slow IV Push, Q6HPRN, Nausea and Vomiting (N/V), Starting on Thu05/25/23 at 0841
Do ses of ondansetro n 16 mg and above need to be administer ed via IV piggyback. For Dose >=24mg ECG monitoring is advisable.
[facility] heparin (porcine) injection 5,000 Units 2022-07 14:00: 00 Yes 5000U 5,000 Units, Subcutaneo us, Q12H, First dose on Thu05/25/23 at 0800, Until Discontinu ed, Routine [facility] Sliding Scale Insulin - Lispro (HumaLOG) 2022-07 11:00: 00 Yes Subcutaneo us, Q3H, First dose (after last modificati on) on Thu05/25/23 at 0500, Until Discontinu ed, Routine [facility] insulin glargine (LANTUS U-100) injection 10 Units 2022-07 11:00: 00 05-25 10:15 :00 No 10U 10 Units, Subcutaneo us, ONCE, 1 dose, On Thu05/25/23 at 0500, Routine [facility] lactated ringers IV infusion 1,000 mL 2022-07 11:00: 00 05-25 11:00 :00 No 1000mL at 999 mL/hr, 1,000 mL, IV Infusion, ONCE, 1 dose, On Thu05/25/23 at 0500, Routine [facility] insulin glargine (LANTUS U-100) injection 16 Units 2022-07 08:00: 00 05-25 08:00 :00 No 16U 16 Units, Subcutaneo us, ONCE, 1 dose, On Thu05/25/23 at 0200, Routine [facility] ondansetron (ZOFRAN (PF)) injection 4 mg 2022-07 07:00: 00 05-25 06:13 :00 No 4mg 4 mg, Slow IV Push, ONCE, On Thu05/25/23 at 0100, For 1 dose
Do ses of ondansetro n 16 mg and above need to be administer ed via IV piggyback. For Dose >=24mg ECG monitoring is advisable.
[facility] proMETHazin e (PHENERGAN) 12.5 mg in NS 50 mL IV piggyback (CNR) 2022-07 07:00: 00 05-25 08:23 :00 No 12.5mg 12.5 mg, IV Piggyback, at 200 mL/hr Administer over 15 Minutes, ONCE, 1 dose, On Thu05/25/23 at 0100, Routine [facility] Sliding Scale Insulin - Lispro (HumaLOG) 2022-07 06:00: 00 05-25 07:10 :18 No Subcutaneo us, Q4H, First dose on Thu05/25/23 at 0000, Until Discontinu ed, Routine [facility] amLODIPine (NORVASC) tablet 10 mg 2022-07 05:15: 00 05-25 12:32 :23 No 10mg 10 mg, Oral, DAILY, First dose (after last modificati on) on Thu05/24/23 at 2315, Until Discontinu ed, Routine [facility] lisinopriL (PRINIVIL,Z ESTRIL) tablet 10 mg 2022-07 05:15: 00 05-25 05:27 :00 No 10mg 10 mg, Oral, DAILY, 1 dose, First dose on Thu05/24/23 at 2315, Routine [facility] acetaminoph en (TYLENOL) tablet 650 mg 2022-07 04:52: 42 Yes 650mg 650 mg, Oral, Q6HPRN, Starting on Thu05/24/23 at 2252, Until Discontinu ed, Routine, Pain (scale 1-3) [facility] ondansetron (ZOFRAN (PF)) injection 4 mg 2022-07 03:15: 00 05-25 03:02 :00 No 4mg 4 mg, Slow IV Push, ONCE, 1 dose, On Thu05/24/23 at 2115, SUSAN [facility] niCARdipine (CARDENE I.V.) 40 mg in NaCL 200 mL (RTU) infusion 2022-07 01:04: 12 05-25 06:08 :51 No 2.5mg/h 2.5-15 mg/hr (12.5-75 mL/hr), IV Infusion, TITRATE, SBP Goal < 180 mmHg, Starting on Thu05/24/23 at 1904
In itiate infusion at 2.5 mg/hr.&nbs p; Ti trate by 2.5 mg/hr every 5 minutes to 15 minutes as needed to achieve and maintain goal blood pressure. Maximum dose = 15 mg/hr. If goal not maintained at maximum allowed dose, contact prescriber .
[facility] labetaloL (NORMODYNE) injection 10 mg 2022-07 00:45: 00 05-24 23:52 :00 No 10mg 10 mg, Slow IV Push, ONCE, 1 dose, On Thu05/24/23 at 1845, [facility]NORMODYNE[facility] 10 mg 2022-07 00:00: 00 05-24 23:12 :00 No 10mg 10 mg, Slow IV Push, ONCE, 1 dose, On Thu05/24/23 at 1800, Routine [facility] iopamidol (ISOVUE 370-500 mL) injection 180 mL 2022-07 23:30: 00 05-24 23:30 :00 No [id number] 180mL 180 mL, Intravenou s, ONCE, 1 dose, On Thu05/24/23 at 1730, Routine [facility] ondansetron (ZOFRAN (PF)) injection 4 mg 2022-07 22:45: 00 05-24 22:41 :00 No 4mg 4 mg, Slow IV Push, ONCE, 1 dose, On Thu05/24/23 at 1645, SUSAN [facility] NaCl 0.9% (NS) injection 5 mL 2022-07 22:03: 10 Yes 5mL 5 mL, Slow IV Push, PRN - SEE INSTRUCTIO NS, Starting on Thu05/24/23 at 1603, Until Discontinu ed, 10 mL [facility] cloNIDine (CATAPRES) tablet 0.1 mg 01-23 16:15: 00 01-23 16:29 :00 No .1mg 0.1 mg, Oral, ONCE, 1 dose, On Thu01/23/23 at 1115, STAT [facility] metFORMIN 500 mg tablet 01-23 00:00: 00 Yes [id number] 500mg Take 1 tablet by mouth in the morning and 1 tablet in the evening. [facility] lisinopriL 10 mg tablet 01-23 00:00: 00 Yes [id number] 10mg Take 1 tablet by mouth at bedtime. [facility] metFORMIN 500 mg tablet 01-23 00:00: 00 05-27 00:00 :00 No [id number] 500mg Take 1 tablet by mouth in the morning and 1 tablet in the evening. [facility] lisinopriL 10 mg tablet 01-23 00:00: 00 05-27 00:00 :00 No [id number] 10mg Take 1 tablet by mouth at bedtime. [facility] clindamycin 150 mg capsule 7-14 00:00: 00 02-03 04:59 :00 No [id number] 450mg Take 3 capsules by mouth in the morning and 3 capsules at noon and 3 capsules in the evening. Do all this for 10 days. [facility] HYDROcodone -acetaminop hen 5-325 mg tablet 2021-07 00:00: 00 05-22 05:59 :00 No [id number] 1{tbl} Take 1 tablet by mouth every 6 (six) hours as needed for Pain (scale 7-10) for up to 7 days. Indication s: acute pain [facility] HYDROcodone -acetaminop hen 5-325 mg tablet 2021-07 00:00: 00 05-22 05:59 :00 No [id number] 1{tbl} Take 1 tablet by mouth every 6 (six) hours as needed for Pain (scale 7-10) for up to 7 days. Indication s: acute pain [facility] HYDROcodone -acetaminop hen 5-325 mg tablet 2021-07 00:00: 00 05-22 05:59 :00 No [id number] 1{tbl} Take 1 tablet by mouth every 6 (six) hours as needed for Pain (scale 7-10) for up to 7 days. Indication s: acute pain [facility] HYDROcodone -acetaminop hen 5-325 mg tablet 2021-07 00:00: 00 05-22 05:59 :00 No [id number] 1{tbl} Take 1 tablet by mouth every 6 (six) hours as needed for Pain (scale 7-10) for up to 7 days. Indication s: acute pain [facility] HYDROcodone -acetaminop hen 5-325 mg tablet 2021-07 00:00: 00 05-22 05:59 :00 No [id number] 1{tbl} Take 1 tablet by mouth every 6 (six) hours as needed for Pain (scale 7-10) for up to 7 days. Indication s: acute pain [facility] gabapentin 300 mg capsule 2021-07 0-20 00:00: 00 Yes Take by mouth. [facility] gabapentin 300 mg capsule 2021-07 0-20 00:00: 00 05-24 00:00 :00 No Take by mouth. [facility] amLODIPine 2.5 mg tablet 2021-07 0-17 00:00: 00 Yes 2.5mg Take 1 tablet by mouth. [facility] amLODIPine 10 mg tablet 2021-07 0-17 00:00: 00 05-27 00:00 :00 No 10mg Take 1 tablet by mouth. [facility] atorvastati n 40 mg tablet 2021-07 0 00:00: 00 Yes 40mg Take 1 tablet by mouth. [facility] atorvastati n 40 mg tablet 2021-07 0-12 00:00: 00 05-27 00:00 :00 No 80mg Take 2 tablets by mouth. [facility] polyethylen e glycol 3350 powder 17 g 2021-07 0 14:00: 00 Yes 17g 17 g, Oral, DAILY, First dose on Thu04/17/22 at 0900, Until Discontinu ed, Routine [facility] methocarbam oL 500 mg tablet 2021-07 006 00:00: 00 Yes 500mg Take 1 tablet by mouth. [facility] insulin aspart injection 2021-07 0-06 00:00: 00 Yes inject under the skin. [facility] insulin aspart injection 2021-07 0-06 00:00: 00 05-27 00:00 :00 No inject under the skin. [facility] methocarbam oL 500 mg tablet 2021-07 0-06 00:00: 00 05-24 00:00 :00 No 500mg Take 1 tablet by mouth. [facility] magnesium hydroxide (MILK OF MAGNESIA) 400 mg/5 mL suspension 30 mL 2021-07 0-05 15:30: 22 Yes 30mL 30 mL, Oral, QDAILYPRN, Starting on Thu04/16/22 at 1030, Until Discontinu ed, Routine, Constipati on [facility] enoxaparin 30 mg/0.3 mL injection 2021-07 0-05 00:00: 00 05-15 04:59 :00 No [id number] 30mg inject 0.3 mL under the skin every 12 (twelve) hours for 28 days. [facility]ox[facility] 30 mg/0.3 mL injection 2021-07 0-05 00:00: 00 05-15 04:59 :00 No [id number] 30mg inject 0.3 mL under the skin every 12 (twelve) hours for 28 days. [facility] enoxaparin 30 mg/0.3 mL injection 2021-07 0-05 00:00: 00 05-15 04:59 :00 No [id number] 30mg inject 0.3 mL under the skin every 12 (twelve) hours for 28 days. [facility] enoxaparin 30 mg/0.3 mL injection 2021-07 0-05 00:00: 00 05-15 04:59 :00 No [id number] 30mg inject 0.3 mL under the skin every 12 (twelve) hours for 28 days. [facility] enoxaparin 30 mg/0.3 mL injection 2021-07 0-05 00:00: 00 05-15 04:59 :00 No [id number] 30mg inject 0.3 mL under the skin every 12 (twelve) hours for 28 days. [facility] enoxaparin 30 mg/0.3 mL injection 2021-07 0-05 00:00: 00 05-15 04:59 :00 No [id number] 30mg inject 0.3 mL under the skin every 12 (twelve) hours for 28 days. [facility] enoxaparin 30 mg/0.3 mL injection 2021-07 0-05 00:00: 00 05-15 04:59 :00 No [id number] 30mg inject 0.3 mL under the skin every 12 (twelve) hours for 28 days. [facility] docusate 100 mg capsule 2021-07 0-05 00:00: 00 05-01 04:59 :00 No [id number] 100mg Take 1 capsule by mouth every 12 (twelve) hours for 14 days. [facility] docusate 100 mg capsule 2021-07 0-05 00:00: 00 05-01 04:59 :00 No [id number] 100mg Take 1 capsule by mouth every 12 (twelve) hours for 14 days. [facility] docusate 100 mg capsule 2021-07 0-05 00:00: 00 05-01 04:59 :00 No [id number] 100mg Take 1 capsule by mouth every 12 (twelve) hours for 14 days. [facility] gabapentin 300 mg capsule 2021-07 0-05 00:00: 04-27 04:59 :00 No [id number] 300mg Take 1 capsule by mouth in the morning and 1 capsule at noon and 1 capsule in the evening. Do all this for 10 days. [facility] gabapentin 300 mg capsule 2021-07 0-05 00:00: 04-27 04:59 :00 No [id number] 300mg Take 1 capsule by mouth in the morning and 1 capsule at noon and 1 capsule in the evening. Do all this for 10 days. [facility] gabapentin 300 mg capsule 2021-07 0-05 00:00: 00 04-27 04:59 :00 No [id number] 300mg Take 1 capsule by mouth in the morning and 1 capsule at noon and 1 capsule in the evening. Do all this for 10 days. [facility] methocarbam oL 500 mg tablet 2021-07 0-05 00:00: 00 04-24 04:59 :00 No [id number] 500mg Take 1 tablet by mouth 4 (four) times daily as needed (muscle spams) for up to 7 days. [facility] traMADoL 50 mg tablet 2021-07 0-05 00:00: 00 04-24 04:59 :00 No [id number] 50mg Take 1 tablet by mouth every 6 (six) hours as needed for Pain (scale 4-6) for up to 7 days. Indication s: acute pain [facility] HYDROcodone -acetaminop hen 5-325 mg tablet 2021-07 0-05 00:00: 00 04-24 04:59 :00 No 4647 1{tbl} Take 1 tablet by mouth every 4 (four) hours as needed for Pain (scale 7-10) for up to 7 days. Indication s: acute pain [facility] methocarbam [facility]L 500 mg tablet 2021-07 0-05 00:00: 00 04-24 04:59 :00 No [id number] 500mg Take 1 tablet by mouth 4 (four) times daily as needed (muscle spams) for up to 7 days. [facility] traMADoL 50 mg tablet 2021-07 0-05 00:00: 00 04-24 04:59 :00 No [id number] 50mg Take 1 tablet by mouth every 6 (six) hours as needed for Pain (scale 4-6) for up to 7 days. Indication s: acute pain [facility] HYDROcodone -acetaminop hen 5-325 mg tablet 2021-07 0-05 00:00: 00 04-24 04:59 :00 No 4647 1{tbl} Take 1 tablet by mouth every 4 (four) hours as needed for Pain (scale 7-10) for up to 7 days. Indication s: acute pain [facility] methocarbam oL 500 mg tablet 2021-07 0-05 00:00: 00 04-24 04:59 :00 No [id number] 500mg Take 1 tablet by mouth 4 (four) times daily as needed (muscle spams) for up to 7 days. [facility] traMADoL 50 mg tablet 2021-07 0-05 00:00: 00 04-24 04:59 :00 No [id number] 50mg Take 1 tablet by mouth every 6 (six) hours as needed for Pain (scale 4-6) for up to 7 days. Indication s: acute pain [facility] HYDROcodone -acetaminop hen 5-325 mg tablet 2021-07 0-05 00:00: 00 04-24 04:59 :00 No 4647 1{tbl} Take 1 tablet by mouth every 4 (four) hours as needed for Pain (scale 7-10) for up to 7 days. Indication s: acute pain [facility] polyethylen e glycol 3350 powder 17 g 2021-07 004 18:00: 00 04-15 19:10 :00 No 17g 17 g, Oral, ONCE, 1 dose, On Thu04/15/22 at 1300, Routine [facility] insulin lispro (human) (HumaLOG U-100) injection 5 Units 2021-07 0 21:30: 00 Yes 5U 5 Units, Subcutaneo us, BIDAC, First dose on Thu04/14/22 at 1630, Until Discontinu ed, Routine [facility] insulin lispro (human) (HumaLOG U-100) injection 5 Units 2021-07 0 21:30: 00 Yes 5U 5 Units, Subcutaneo us, BIDAC, First dose on Thu04/14/22 at 1630, Until Discontinu ed, Routine [facility] insulin glargine (LANTUS U-100) injection 55 Units 2021-07 0-03 02:00: 00 Yes 55U 55 Units, Subcutaneo us, QHS, First dose (after last modificati on) on Thu04/13/22 at 2100, Until Discontinu ed, Routine [facility] insulin glargine (LANTUS U-100) injection 55 Units 2021-07 0-03 02:00: 00 Yes 55U 55 Units, Subcutaneo us, QHS, First dose (after last modificati on) on Thu04/13/22 at 2100, Until Discontinu ed, Routine [facility] ondansetron (ZOFRAN) tablet 4 mg 2021-07 23:45: 00 04-13 22:54 :00 No 4mg 4 mg, Oral, ONCE, 1 dose, On Thu04/13/22 at 1845, Routine [facility] gabapentin (NEURONTIN) capsule 300 mg 2021-07 0 23:00: 00 Yes 300mg 300 mg, Oral, TID, First dose on Thu04/13/22 at 1800, Until Discontinu ed, Routine [facility] gabapentin (NEURONTIN) capsule 300 mg 2021-07 23:00: 00 Yes 300mg 300 mg, Oral, TID, First dose on Thu04/13/22 at 1800, Until Discontinu ed, Routine [facility] ceFAZolin (ANCEF) 1,000 mg in NaCl 0.9% (NS) 50 mL MINI-BAG 2021-07 18:00: 00 04-14 10:47 :00 No 1000mg 1,000 mg, IV Piggyback, Q8H ABX, 3 doses, First dose on Thu04/13/22 at 1300, Last dose on Thu04/14/22 at 0500, Administer over 30 Minutes, 50 mL
Reas on for Anti-Infec tive: Surgical Prophylaxi s
Surgi john Prophylaxi s: Orthopaedi c
Durat ion of therapy: within 24 hours of surgery [facility] lactated ringers IV infusion 1,000 mL 2021-07 17:15: 00 Yes 1000mL at 75 mL/hr, 1,000 mL, IV Infusion, CONTINUOUS , Starting on Thu04/13/22 at 1215, Until Discontinu ed, Routine, PACU [facility] lactated ringers IV infusion 1,000 mL 2021-07 17:15: 00 04-16 17:11 :33 No 1000mL at 75 mL/hr, 1,000 mL, IV Infusion, CONTINUOUS , Starting on Thu04/13/22 at 1215, Until Thu04/16/22 at 1211, Routine, PACU [facility] FENTanyl PF (SUBLIMAZE (PF)) injection 25 mcg 2021-07 17:04: 46 04-13 19:30 :48 No 25ug 25 mcg, Slow IV Push, Q5MIN PRN, 4 doses, Starting on Thu04/13/22 at 1204, Until Thu04/13/22 at 1430, Routine, Pain (scale 4-6), PACU [facility] amLODIPine (NORVASC) tablet 10 mg 2021-07 14:00: 00 04-13 20:30 :17 No 10mg 10 mg, Oral, DAILY, First dose on 04/13/22 at 0900, Until Discontinu ed, Routine [facility] melatonin (MELATIN) tablet 3 mg 2021-07 02:00: 00 Yes 3mg 3 mg, Oral, QHS, First dose on 04/12/22 at 2100, Until Discontinu ed, Routine [facility] melatonin (MELATIN) tablet 3 mg 2021-07 02:00: 00 Yes 3mg 3 mg, Oral, QHS, First dose on 04/12/22 at 2100, Until Discontinu ed, Routine [facility] atorvastati n (LIPITOR) tablet 80 mg 2021-07 22:00: 00 Yes 80mg 80 mg, Oral, QPM, First dose on 04/12/22 at 1700, Until Discontinu ed, Routine [facility] atorvastati n (LIPITOR) tablet 80 mg 2021-07 22:00: 00 Yes 80mg 80 mg, Oral, QPM, First dose on 04/12/22 at 1700, Until Discontinu ed, Routine [facility] omeprazole (PRILOSEC) capsule 20 mg 2021-07 18:00: 00 Yes 20mg 20 mg, Oral, DAILY, First dose on 04/12/22 at 1300, Until Discontinu ed, Routine [facility] omeprazole (PRILOSEC) capsule 20 mg 2021-07 18:00: 00 Yes 20mg 20 mg, Oral, DAILY, First dose on 04/12/22 at 1300, Until Discontinu ed, Routine [facility] Sliding Scale Insulin - Lispro (HumaLOG) + Fsbg Testing 2021-07 17:00: 00 Yes Subcutaneo us, TID MEALS+HS, First dose on 04/12/22 at 1200, Until Discontinu ed, Routine [facility] Sliding Scale Insulin - Lispro (HumaLOG) + Fsbg Testing 2021-07 17:00: 00 Yes Subcutaneo us, TID MEALS+HS, First dose on 04/12/22 at 1200, Until Discontinu ed, Routine [facility] dextrose 10% (D10W) bolus infusion 250 mL 2021-07 16:28: 19 Yes 250mL 250 mL, IV Infusion, PRN - SEE INSTRUCTIO NS, Administer over 60 Minutes, Other, If blood glucose is < or = 70 mg/dL and patient is unable to swallow or has mental status changes, Starting on 04/12/22 at 1128
If blood glucose is < or = 70 mg/dL and patient is unable to swallow or has mental status changes (Give glucagon order if patient needs fluid restrictio n): IF IV access available: Dextrose 10%. 1. 125 mL (? bag) of D10W IV infusion - equivalent to 12.5 g dextrose 2. Blood glucose - draw blood glucose 15 minutes after D10W Administra tion. 3. If blood glucose is < 80 mg/dL, repeat.
[facility] dextrose 10% (D10W) bolus infusion 250 mL 2021-07 16:28: 19 Yes 250mL 250 mL, IV Infusion, PRN - SEE INSTRUCTIO NS, Administer over 60 Minutes, Other, If blood glucose is < or = 70 mg/dL and patient is unable to swallow or has mental status changes, Starting on 04/12/22 at 1128
If blood glucose is < or = 70 mg/dL and patient is unable to swallow or has mental status changes (Give glucagon order if patient needs fluid restrictio n): IF IV access available: Dextrose 10%. 1. 125 mL (? bag) of D10W IV infusion - equivalent to 12.5 g dextrose 2. Blood glucose - draw blood glucose 15 minutes after D10W Administra tion. 3. If blood glucose is < 80 mg/dL, repeat.
[facility] glucagon (GLUCAGEN DIAGNOSTIC KIT) injection 1 mg 2021-07 16:28: 16 Yes 1mg 1 mg, Intramuscu lar, PRN, Starting on 04/12/22 at 1128, Until Discontinu ed, SUSAN, Blood Glucose < or = 70 mg/dL and patient is unable to swallow or has mental changes. [facility] glucagon (GLUCAGEN DIAGNOSTIC KIT) injection 1 mg 2021-07 16:28: 16 Yes 1mg 1 mg, Intramuscu lar, PRN, Starting on 04/12/22 at 1128, Until Discontinu ed, SUSAN, Blood Glucose < or = 70 mg/dL and patient is unable to swallow or has mental changes. [facility] docusate (COLACE) capsule 100 mg 2021-07 13:00: 00 Yes 100mg 100 mg, Oral, Q12H, First dose on 04/12/22 at 0800, Until Discontinu ed, Routine [facility] docusate (COLACE) capsule 100 mg 2021-07 13:00: 00 Yes 100mg 100 mg, Oral, Q12H, First dose on 04/12/22 at 0800, Until Discontinu ed, Routine [facility] enoxaparin (LOVENOX) injection 30 mg 2021-07 13:00: 00 05-10 12:59 :00 No 30mg 30 mg, Subcutaneo us, Q12H, 56 doses, First dose on Thu04/12/22 at 0800, Last dose on Thu05/09/22 at 1999, Routine [facility] enoxaparin (LOVENOX) injection 30 mg 2021-07 13:00: 00 05-10 12:59 :00 No 30mg 30 mg, Subcutaneo us, Q12H, 56 doses, First dose on 04/12/22 at 0800, Last dose on Thu05/09/22 at 1999, Routine [facility] lactated ringers IV infusion 1,000 mL 2021-07 08:15: 00 Yes 1000mL at 42 mL/hr, 1,000 mL, IV Infusion, CONTINUOUS , Starting on 04/12/22 at 0315, Until Discontinu ed, Routine [facility] morpHINE (4 mg/mL) injection 4 mg 2021-07 07:59: 10 Yes 4mg 4 mg, Slow IV Push, Q4HPRN, Starting on 04/12/22 at 0259, Until Discontinu ed, Routine, For pain unrelieved by oral medication s, or if patient is unable to tolerate oral pain medication . [facility] morpHINE (4 mg/mL) injection 4 mg 2021-07 0 07:59: 10 Yes 4mg 4 mg, Slow IV Push, Q4HPRN, Starting on 04/12/22 at 0259, Until Discontinu ed, Routine, For pain unrelieved by oral medication s, or if patient is unable to tolerate oral pain medication . [facility] HYDROcodone -acetaminop hen (NORCO 5) 5-325 mg tablet 1 tablet 2021-07 0 07:59: 07 Yes 1{tbl} 1 tablet, Oral, Q4HPRN, Starting on 04/12/22 at 0259, Until Discontinu ed, Routine, Pain (scale 7-10) [facility] HYDROcodone -acetaminop hen (NORCO 5) 5-325 mg tablet 1 tablet 2021-07 0 07:59: 07 Yes 1{tbl} 1 tablet, Oral, Q4HPRN, Starting on 04/12/22 at 0259, Until Discontinu ed, Routine, Pain (scale 7-10) [facility] traMADoL (ULTRAM) tablet 50 mg 2021-07 0 07:59: 04 Yes 50mg 50 mg, Oral, Q6HPRN, Starting on 04/12/22 at 0259, Until Discontinu ed, Routine, Pain (scale 4-6) [facility] traMADoL (ULTRAM) tablet 50 mg 2021-07 0 07:59: 04 Yes 50mg 50 mg, Oral, Q6HPRN, Starting on 04/12/22 at 0259, Until Discontinu ed, Routine, Pain (scale 4-6) [facility] acetaminoph en (TYLENOL) tablet 650 mg 2021-07 0 07:59: 02 Yes 650mg 650 mg, Oral, Q6HPRN, Starting on 04/12/22 at 0259, Until Discontinu ed, Routine, Pain (scale 1-3), Pain Scale 1-3 Or Headache [facility] acetaminoph en (TYLENOL) tablet 650 mg 2021-07 07:59: 02 Yes 650mg 650 mg, Oral, Q6HPRN, Starting on 04/12/22 at 0259, Until Discontinu ed, Routine, Pain (scale 1-3), Pain Scale 1-3 Or Headache [facility] methocarbam oL (ROBAXIN) tablet 500 mg 2021-07 07:58: 56 Yes 500mg 500 mg, Oral, QIDPRN, Starting on 04/12/22 at 0258, Until Discontinu ed, Routine, Muscle Spasms [facility] methocarbam oL (ROBAXIN) tablet 500 mg 2021-07 07:58: 56 Yes 500mg 500 mg, Oral, QIDPRN, Starting on 04/12/22 at 0258, Until Discontinu ed, Routine, Muscle Spasms [facility] ondansetron (ZOFRAN (PF)) injection 4 mg 2021-07 07:58: 52 Yes 4mg 4 mg, Slow IV Push, Q6HPRN, Starting on 04/12/22 at 0258, Until Discontinu ed, Routine, Nausea and Vomiting (N/V) [facility] ondansetron (ZOFRAN (PF)) injection 4 mg 2021-07 07:58: 52 Yes 4mg 4 mg, Slow IV Push, Q6HPRN, Starting on 04/12/22 at 0258, Until Discontinu ed, Routine, Nausea and Vomiting (N/V) [facility] morpHINE (4 mg/mL) injection 4 mg 2021-07 04:15: 00 04-12 04:13 :00 No 4mg 4 mg, Slow IV Push, ONCE, 1 dose, On Thu04/11/22 at 2315, STAT [facility] insulin regular human (HUMULIN R) injection 10 Units 2021-07 03:30: 00 04-12 02:37 :00 No 10U 10 Units, Subcutaneo us, ONCE, 1 dose, On Thu04/11/22 at 2230, Routine
Indicatio n for insulin: Hyperglyce marquis [facility] ondansetron (ZOFRAN (PF)) injection 4 mg 2021-07 00:15: 00 04-12 00:48 :00 No 4mg 4 mg, Slow IV Push, ONCE, 1 dose, On Thu04/11/22 at 1915, SUSAN [facility] morpHINE (4 mg/mL) injection 4 mg 2021-07 00:15: 00 04-12 00:48 :00 No 4mg 4 mg, Slow IV Push, ONCE, 1 dose, On Thu04/11/22 at 1915, STAT [facility] sildenafil 100 mg tablet 03-15 00:00: 00 Yes [id number] 100mg Take 1 tablet by mouth once daily as needed (ED). [facility] sildenafil 100 mg tablet 03-15 00:00: 00 Yes [id number] 100mg Take 1 tablet by mouth once daily as needed (ED). [facility] sildenafil 100 mg tablet 03-15 00:00: 00 Yes [id number] 100mg Take 1 tablet by mouth once daily as needed (ED). [facility] sildenafil 100 mg tablet 03-15 00:00: 00 Yes [id number] 100mg Take 1 tablet by mouth once daily as needed (ED). [facility] sildenafil 100 mg tablet 03-15 00:00: 00 Yes [id number] 100mg Take 1 tablet by mouth once daily as needed (ED). [facility] amLODIPine 10 mg tablet 03-15 00:00: 00 Yes [id number] 10mg Take 1 tablet by mouth daily. [facility] atorvastati n 80 mg tablet 03-15 00:00: 00 Yes [id number] TAKE ONE TABLET BY MOUTH EVERY NIGHT AT BEDTIME [facility] aspirin 81 mg EC tablet 03-15 00:00: 00 Yes [id number] 81mg Take 1 tablet by mouth daily. [facility] sildenafil 100 mg tablet 03-15 00:00: 00 Yes [id number] 100mg Take 1 tablet by mouth once daily as needed (ED). [facility] empaglifloz in-linaglip tin (GLYXAMBI) 25-5 mg Tab 03-15 00:00: 00 Yes [id number] 1{tbl} Take 1 tablet by mouth daily. [facility] metformin ER 750 mg 24 hr tablet 03-15 00:00: 00 Yes [id number] 750mg Take 1 tablet by mouth daily with breakfast. [facility] sildenafil 100 mg tablet 03-15 00:00: 00 Yes [id number] 100mg Take 1 tablet by mouth once daily as needed (ED). [facility] sildenafil 100 mg tablet 03-15 00:00: 00 Yes [id number] 100mg Take 1 tablet by mouth once daily as needed (ED). [facility] Insulin Glargine (LANTUS SOLOSTAR U-100 INSULIN) 100 unit/mL (3 mL) injection 03-15 00:00: 00 Yes [id number] 55U inject 55 Units under the skin daily. [facility] sildenafil 100 mg tablet 03-15 00:00: 00 Yes [id number] 100mg Take 1 tablet by mouth once daily as needed (ED). [facility] Insulin [place], Disposable, (MARGO PEN NEEDLE) 32 gauge x 5/32" Ndle 03-15 00:00: 00 Yes [id number] Use as directed once daily with lantus [facility] sildenafil 100 mg tablet 03-15 00:00: 00 Yes [id number] 100mg Take 1 tablet by mouth once daily as needed (ED). [facility] sildenafil 100 mg tablet 03-15 00:00: 00 Yes [id number] 100mg Take 1 tablet by mouth once daily as needed (ED). [facility] sildenafil 100 mg tablet 03-15 00:00: 00 Yes [id number] 100mg Take 1 tablet by mouth once daily as needed (ED). [facility] sildenafil 100 mg tablet 03-15 00:00: 00 Yes [id number] 100mg Take 1 tablet by mouth once daily as needed (ED). [facility] sildenafil 100 mg tablet 03-15 00:00: 00 Yes [id number] 100mg Take 1 tablet by mouth once daily as needed (ED). [facility] amLODIPine 10 mg tablet 03-15 00:00: 00 Yes [id number] 10mg Take 1 tablet by mouth daily. [facility] atorvastati n 80 mg tablet 03-15 00:00: 00 Yes [id number] TAKE ONE TABLET BY MOUTH EVERY NIGHT AT BEDTIME [facility] aspirin 81 mg EC tablet 03-15 00:00: 00 Yes [id number] 81mg Take 1 tablet by mouth daily. [facility] sildenafil 100 mg tablet 03-15 00:00: 00 Yes [id number] 100mg Take 1 tablet by mouth once daily as needed (ED). [facility] empaglifloz in-linaglip tin (GLYXAMBI) 25-5 mg Tab 03-15 00:00: 00 Yes [id number] 1{tbl} Take 1 tablet by mouth daily. [facility] metformin ER 750 mg 24 hr tablet 03-15 00:00: 00 Yes [id number] 750mg Take 1 tablet by mouth daily with breakfast. [facility] sildenafil 100 mg tablet 03-15 00:00: 00 Yes [id number] 100mg Take 1 tablet by mouth once daily as needed (ED). [facility] sildenafil 100 mg tablet 03-15 00:00: 00 Yes [id number] 100mg Take 1 tablet by mouth once daily as needed (ED). [facility] Insulin Glargine (LANTUS SOLOSTAR U-100 INSULIN) 100 unit/mL (3 mL) injection 03-15 00:00: 00 Yes [id number] 55U inject 55 Units under the skin daily. [facility] sildenafil 100 mg tablet 03-15 00:00: 00 Yes [id number] 100mg Take 1 tablet by mouth once daily as needed (ED). [facility] Insulin [place], Disposable, (MARGO PEN NEEDLE) 32 gauge x 5/32" Ndle 03-15 00:00: 00 Yes [id number] Use as directed once daily with lantus [facility] sildenafil 100 mg tablet 03-15 00:00: 00 Yes [id number] 100mg Take 1 tablet by mouth once daily as needed (ED). [facility] amLODIPine 10 mg tablet 03-15 00:00: 00 Yes [id number] 10mg Take 1 tablet by mouth daily. [facility] atorvastati n 80 mg tablet 03-15 00:00: 00 Yes [id number] TAKE ONE TABLET BY MOUTH EVERY NIGHT AT BEDTIME [facility] aspirin 81 mg EC tablet 03-15 00:00: 00 Yes [id number] 81mg Take 1 tablet by mouth daily. [facility] empaglifloz in-linaglip tin (GLYXAMBI) 25-5 mg Tab 03-15 00:00: 00 Yes [id number] 1{tbl} Take 1 tablet by mouth daily. [facility] metformin ER 750 mg 24 hr tablet 03-15 00:00: 00 Yes [id number] 750mg Take 1 tablet by mouth daily with breakfast. [facility] sildenafil 100 mg tablet 03-15 00:00: 00 Yes [id number] 100mg Take 1 tablet by mouth once daily as needed (ED). [facility] Insulin Glargine (LANTUS SOLOSTAR U-100 INSULIN) 100 unit/mL (3 mL) injection 03-15 00:00: 00 Yes [id number] 55U inject 55 Units under the skin daily. [facility] Insulin [place], Disposable, (MARGO PEN NEEDLE) 32 gauge x 5/32" Ndle 03-15 00:00: 00 Yes [id number] Use as directed once daily with lantus [facility] amLODIPine 10 mg tablet 03-15 00:00: 00 Yes [id number] 10mg Take 1 tablet by mouth daily. [facility] atorvastati n 80 mg tablet 03-15 00:00: 00 Yes [id number] TAKE ONE TABLET BY MOUTH EVERY NIGHT AT BEDTIME [facility] aspirin 81 mg EC tablet 03-15 00:00: 00 Yes [id number] 81mg Take 1 tablet by mouth daily. [facility] empaglifloz in-linaglip tin (GLYXAMBI) 25-5 mg Tab 03-15 00:00: 00 Yes [id number] 1{tbl} Take 1 tablet by mouth daily. [facility] metformin ER 750 mg 24 hr tablet 03-15 00:00: 00 Yes [id number] 750mg Take 1 tablet by mouth daily with breakfast. [facility] sildenafil 100 mg tablet 03-15 00:00: 00 Yes [id number] 100mg Take 1 tablet by mouth once daily as needed (ED). [facility] Insulin Glargine (LANTUS SOLOSTAR U-100 INSULIN) 100 unit/mL (3 mL) injection 03-15 00:00: 00 Yes [id number] 55U inject 55 Units under the skin daily. [facility] Insulin [place], Disposable, (MARGO PEN NEEDLE) 32 gauge x 5/32" Ndle 03-15 00:00: 00 Yes [id number] Use as directed once daily with lantus [facility] amLODIPine 10 mg tablet 03-15 00:00: 00 Yes [id number] 10mg Take 1 tablet by mouth daily. [facility] atorvastati n 80 mg tablet 03-15 00:00: 00 Yes [id number] TAKE ONE TABLET BY MOUTH EVERY NIGHT AT BEDTIME [facility] aspirin 81 mg EC tablet 03-15 00:00: 00 Yes [id number] 81mg Take 1 tablet by mouth daily. [facility] empaglifloz in-linaglip tin (GLYXAMBI) 25-5 mg Tab 03-15 00:00: 00 Yes [id number] 1{tbl} Take 1 tablet by mouth daily. [facility] metformin ER 750 mg 24 hr tablet 03-15 00:00: 00 Yes [id number] 750mg Take 1 tablet by mouth daily with breakfast. [facility] sildenafil 100 mg tablet 03-15 00:00: 00 Yes [id number] 100mg Take 1 tablet by mouth once daily as needed (ED). [facility] Insulin Glargine (LANTUS SOLOSTAR U-100 INSULIN) 100 unit/mL (3 mL) injection 03-15 00:00: 00 Yes [id number] 55U inject 55 Units under the skin daily. [facility] Insulin [place], Disposable, (MARGO PEN NEEDLE) 32 gauge x 5/32" Ndle 03-15 00:00: 00 Yes [id number] Use as directed once daily with lantus [facility] amLODIPine 10 mg tablet 03-15 00:00: 00 Yes [id number] 10mg Take 1 tablet by mouth daily. [facility] atorvastati n 80 mg tablet 03-15 00:00: 00 Yes [id number] TAKE ONE TABLET BY MOUTH EVERY NIGHT AT BEDTIME [facility] aspirin 81 mg EC tablet 03-15 00:00: 00 Yes [id number] 81mg Take 1 tablet by mouth daily. [facility] empaglifloz in-linaglip tin (GLYXAMBI) 25-5 mg Tab 03-15 00:00: 00 Yes [id number] 1{tbl} Take 1 tablet by mouth daily. [facility] metformin ER 750 mg 24 hr tablet 03-15 00:00: 00 Yes [id number] 750mg Take 1 tablet by mouth daily with breakfast. [facility] sildenafil 100 mg tablet 03-15 00:00: 00 Yes [id number] 100mg Take 1 tablet by mouth once daily as needed (ED). [facility] Insulin Glargine (LANTUS SOLOSTAR U-100 INSULIN) 100 unit/mL (3 mL) injection 03-15 00:00: 00 Yes [id number] 55U inject 55 Units under the skin daily. [facility] Insulin [place], Disposable, (MARGO PEN NEEDLE) 32 gauge x 5/32" Ndle 03-15 00:00: 00 Yes [id number] Use as directed once daily with lantus [facility] amLODIPine 10 mg tablet 03-15 00:00: 00 Yes [id number] 10mg Take 1 tablet by mouth daily. [facility] atorvastati n 80 mg tablet 03-15 00:00: 00 Yes [id number] TAKE ONE TABLET BY MOUTH EVERY NIGHT AT BEDTIME [facility] aspirin 81 mg EC tablet 03-15 00:00: 00 Yes [id number] 81mg Take 1 tablet by mouth daily. [facility] empaglifloz in-linaglip tin (GLYXAMBI) 25-5 mg Tab 03-15 00:00: 00 Yes [id number] 1{tbl} Take 1 tablet by mouth daily. [facility] metformin ER 750 mg 24 hr tablet 03-15 00:00: 00 Yes [id number] 750mg Take 1 tablet by mouth daily with breakfast. [facility] sildenafil 100 mg tablet 03-15 00:00: 00 Yes [id number] 100mg Take 1 tablet by mouth once daily as needed (ED). [facility] Insulin Glargine (LANTUS SOLOSTAR U-100 INSULIN) 100 unit/mL (3 mL) injection 03-15 00:00: 00 Yes [id number] 55U inject 55 Units under the skin daily. [facility] Insulin [place], Disposable, (MARGO PEN NEEDLE) 32 gauge x 5/32" Ndle 03-15 00:00: 00 Yes [id number] Use as directed once daily with lantus [facility] amLODIPine 10 mg tablet 03-15 00:00: 00 Yes [id number] 10mg Take 1 tablet by mouth daily. [facility] atorvastati n 80 mg tablet 03-15 00:00: 00 Yes [id number] TAKE ONE TABLET BY MOUTH EVERY NIGHT AT BEDTIME [facility] aspirin 81 mg EC tablet 03-15 00:00: 00 Yes [id number] 81mg Take 1 tablet by mouth daily. [facility] empaglifloz in-linaglip tin (GLYXAMBI) 25-5 mg Tab 03-15 00:00: 00 Yes [id number] 1{tbl} Take 1 tablet by mouth daily. [facility] metformin ER 750 mg 24 hr tablet 03-15 00:00: 00 Yes [id number] 750mg Take 1 tablet by mouth daily with breakfast. [facility] sildenafil 100 mg tablet 03-15 00:00: 00 Yes [id number] 100mg Take 1 tablet by mouth once daily as needed (ED). [facility] Insulin Glargine (LANTUS SOLOSTAR U-100 INSULIN) 100 unit/mL (3 mL) injection 03-15 00:00: 00 Yes [id number] 55U inject 55 Units under the skin daily. [facility] Insulin [place], Disposable, (MARGO PEN NEEDLE) 32 gauge x 5/32" Ndle 03-15 00:00: 00 Yes [id number] Use as directed once daily with lantus [facility] amLODIPine 10 mg tablet 03-15 00:00: 00 Yes [id number] 10mg Take 1 tablet by mouth daily. [facility] atorvastati n 80 mg tablet 03-15 00:00: 00 Yes [id number] TAKE ONE TABLET BY MOUTH EVERY NIGHT AT BEDTIME [facility] aspirin 81 mg EC tablet 03-15 00:00: 00 Yes [id number] 81mg Take 1 tablet by mouth daily. [facility] empaglifloz in-linaglip tin (GLYXAMBI) 25-5 mg Tab 03-15 00:00: 00 Yes [id number] 1{tbl} Take 1 tablet by mouth daily. [facility] metformin ER 750 mg 24 hr tablet 03-15 00:00: 00 Yes [id number] 750mg Take 1 tablet by mouth daily with breakfast. [facility] sildenafil 100 mg tablet 03-15 00:00: 00 Yes [id number] 100mg Take 1 tablet by mouth once daily as needed (ED). [facility] Insulin Glargine (LANTUS SOLOSTAR U-100 INSULIN) 100 unit/mL (3 mL) injection 03-15 00:00: 00 Yes [id number] 55U inject 55 Units under the skin daily. [facility] Insulin [place], Disposable, (MARGO PEN NEEDLE) 32 gauge x 5/32" Ndle 03-15 00:00: 00 Yes [id number] Use as directed once daily with lantus [facility] atorvastati n 80 mg tablet 03-15 00:00: 00 Yes [id number] TAKE ONE TABLET BY MOUTH EVERY NIGHT AT BEDTIME [facility] empaglifloz in-linaglip tin (GLYXAMBI) 25-5 mg Tab 03-15 00:00: 00 Yes [id number] 1{tbl} Take 1 tablet by mouth daily. [facility] metformin ER 750 mg 24 hr tablet 03-15 00:00: 00 Yes [id number] 750mg Take 1 tablet by mouth daily with breakfast. [facility] sildenafil 100 mg tablet 03-15 00:00: 00 Yes [id number] 100mg Take 1 tablet by mouth once daily as needed (ED). [facility] Insulin Glargine (LANTUS SOLOSTAR U-100 INSULIN) 100 unit/mL (3 mL) injection 03-15 00:00: 00 Yes [id number] 55U inject 55 Units under the skin daily. [facility] Insulin [place], Disposable, (MARGO PEN NEEDLE) 32 gauge x 5/32" Ndle 03-15 00:00: 00 Yes [id number] Use as directed once daily with lantus [facility] amLODIPine 10 mg tablet 03-15 00:00: 00 Yes [id number] 10mg Take 1 tablet by mouth daily. [facility] atorvastati n 80 mg tablet 03-15 00:00: 00 Yes [id number] TAKE ONE TABLET BY MOUTH EVERY NIGHT AT BEDTIME [facility] aspirin 81 mg EC tablet 03-15 00:00: 00 Yes [id number] 81mg Take 1 tablet by mouth daily. [facility] empaglifloz in-linaglip tin (GLYXAMBI) 25-5 mg Tab 03-15 00:00: 00 Yes [id number] 1{tbl} Take 1 tablet by mouth daily. [facility] atorvastati n 80 mg tablet 03-15 00:00: 00 Yes [id number] TAKE ONE TABLET BY MOUTH EVERY NIGHT AT BEDTIME [facility] empaglifloz in-linaglip tin (GLYXAMBI) 25-5 mg Tab 03-15 00:00: 00 Yes [id number] 1{tbl} Take 1 tablet by mouth daily. [facility] metformin ER 750 mg 24 hr tablet 03-15 00:00: 00 Yes [id number] 750mg Take 1 tablet by mouth daily with breakfast. [facility] sildenafil 100 mg tablet 03-15 00:00: 00 Yes [id number] 100mg Take 1 tablet by mouth once daily as needed (ED). [facility] metformin ER 750 mg 24 hr tablet 03-15 00:00: 00 Yes [id number] 750mg Take 1 tablet by mouth daily with breakfast. [facility] Insulin Glargine (LANTUS SOLOSTAR U-100 INSULIN) 100 unit/mL (3 mL) injection 03-15 00:00: 00 Yes [id number] 55U inject 55 Units under the skin daily. [facility] Insulin [place], Disposable, (MARGO PEN NEEDLE) 32 gauge x 5/32" Ndle 03-15 00:00: 00 Yes [id number] Use as directed once daily with lantus [facility] sildenafil 100 mg tablet 03-15 00:00: 00 Yes [id number] 100mg Take 1 tablet by mouth once daily as needed (ED). [facility] atorvastati n 80 mg tablet 03-15 00:00: 00 Yes [id number] TAKE ONE TABLET BY MOUTH EVERY NIGHT AT BEDTIME [facility] empaglifloz in-linaglip tin (GLYXAMBI) 25-5 mg Tab 03-15 00:00: 00 Yes [id number] 1{tbl} Take 1 tablet by mouth daily. [facility] metformin ER 750 mg 24 hr tablet 03-15 00:00: 00 Yes [id number] 750mg Take 1 tablet by mouth daily with breakfast. [facility] Insulin Glargine (LANTUS SOLOSTAR U-100 INSULIN) 100 unit/mL (3 mL) injection 03-15 00:00: 00 Yes [id number] 55U inject 55 Units under the skin daily. [facility] sildenafil 100 mg tablet 03-15 00:00: 00 Yes [id number] 100mg Take 1 tablet by mouth once daily as needed (ED). [facility] Insulin Glargine (LANTUS SOLOSTAR U-100 INSULIN) 100 unit/mL (3 mL) injection 03-15 00:00: 00 Yes [id number] 55U inject 55 Units under the skin daily. [facility] Insulin [place], Disposable, (MARGO PEN NEEDLE) 32 gauge x 5/32" Ndle 03-15 00:00: 00 Yes [id number] Use as directed once daily with lantus [facility] Insulin [place], Disposable, (MARGO PEN NEEDLE) 32 gauge x 5/32" Ndle 03-15 00:00: 00 Yes [id number] Use as directed once daily with lantus [facility] atorvastati n 80 mg tablet 03-15 00:00: 00 Yes [id number] TAKE ONE TABLET BY MOUTH EVERY NIGHT AT BEDTIME [facility] empaglifloz in-linaglip tin (GLYXAMBI) 25-5 mg Tab 03-15 00:00: 00 Yes [id number] 1{tbl} Take 1 tablet by mouth daily. [facility] metformin ER 750 mg 24 hr tablet 03-15 00:00: 00 Yes [id number] 750mg Take 1 tablet by mouth daily with breakfast. [facility] sildenafil 100 mg tablet 03-15 00:00: 00 Yes [id number] 100mg Take 1 tablet by mouth once daily as needed (ED). [facility] Insulin Glargine (LANTUS SOLOSTAR U-100 INSULIN) 100 unit/mL (3 mL) injection 03-15 00:00: 00 Yes [id number] 55U inject 55 Units under the skin daily. [facility] Insulin [place], Disposable, (MARGO PEN NEEDLE) 32 gauge x 5/32" Ndle 03-15 00:00: 00 Yes [id number] Use as directed once daily with lantus [facility] atorvastati n 80 mg tablet 03-15 00:00: 00 Yes [id number] TAKE ONE TABLET BY MOUTH EVERY NIGHT AT BEDTIME [facility] empaglifloz in-linaglip tin (GLYXAMBI) 25-5 mg Tab 03-15 00:00: 00 Yes [id number] 1{tbl} Take 1 tablet by mouth daily. [facility] metformin ER 750 mg 24 hr tablet 03-15 00:00: 00 Yes [id number] 750mg Take 1 tablet by mouth daily with breakfast. [facility] sildenafil 100 mg tablet 03-15 00:00: 00 Yes [id number] 100mg Take 1 tablet by mouth once daily as needed (ED). [facility] Insulin Glargine (LANTUS SOLOSTAR U-100 INSULIN) 100 unit/mL (3 mL) injection 03-15 00:00: 00 Yes [id number] 55U inject 55 Units under the skin daily. [facility] Insulin [place], Disposable, (MARGO PEN NEEDLE) 32 gauge x 5/32" Ndle 03-15 00:00: 00 Yes [id number] Use as directed once daily with lantus [facility] atorvastati n 80 mg tablet 03-15 00:00: 00 Yes [id number] TAKE ONE TABLET BY MOUTH EVERY NIGHT AT BEDTIME [facility] empaglifloz in-linaglip tin (GLYXAMBI) 25-5 mg Tab 03-15 00:00: 00 Yes [id number] 1{tbl} Take 1 tablet by mouth daily. [facility] metformin ER 750 mg 24 hr tablet 03-15 00:00: 00 Yes [id number] 750mg Take 1 tablet by mouth daily with breakfast. [facility] sildenafil 100 mg tablet 03-15 00:00: 00 Yes [id number] 100mg Take 1 tablet by mouth once daily as needed (ED). [facility] Insulin Glargine (LANTUS SOLOSTAR U-100 INSULIN) 100 unit/mL (3 mL) injection 03-15 00:00: 00 Yes [id number] 55U inject 55 Units under the skin daily. [facility] Insulin [place], Disposable, (MARGO PEN NEEDLE) 32 gauge x 5/32" Ndle 03-15 00:00: 00 Yes [id number] Use as directed once daily with lantus [facility] atorvastati n 80 mg tablet 03-15 00:00: 00 Yes [id number] TAKE ONE TABLET BY MOUTH EVERY NIGHT AT BEDTIME [facility] empaglifloz in-linaglip tin (GLYXAMBI) 25-5 mg Tab 03-15 00:00: 00 Yes [id number] 1{tbl} Take 1 tablet by mouth daily. [facility] metformin ER 750 mg 24 hr tablet 03-15 00:00: 00 Yes [id number] 750mg Take 1 tablet by mouth daily with breakfast. [facility] sildenafil 100 mg tablet 03-15 00:00: 00 Yes [id number] 100mg Take 1 tablet by mouth once daily as needed (ED). [facility] Insulin Glargine (LANTUS SOLOSTAR U-100 INSULIN) 100 unit/mL (3 mL) injection 03-15 00:00: 00 Yes [id number] 55U inject 55 Units under the skin daily. [facility] Insulin [place], Disposable, (MARGO PEN NEEDLE) 32 gauge x 5/32" Ndle 03-15 00:00: 00 Yes [id number] Use as directed once daily with lantus [facility] atorvastati n 80 mg tablet 03-15 00:00: 00 Yes [id number] TAKE ONE TABLET BY MOUTH EVERY NIGHT AT BEDTIME [facility] empaglifloz in-linaglip tin (GLYXAMBI) 25-5 mg Tab 03-15 00:00: 00 Yes [id number] 1{tbl} Take 1 tablet by mouth daily. [facility] metformin ER 750 mg 24 hr tablet 03-15 00:00: 00 Yes [id number] 750mg Take 1 tablet by mouth daily with breakfast. [facility] sildenafil 100 mg tablet 03-15 00:00: 00 Yes [id number] 100mg Take 1 tablet by mouth once daily as needed (ED). [facility] Insulin Glargine (LANTUS SOLOSTAR U-100 INSULIN) 100 unit/mL (3 mL) injection 03-15 00:00: 00 Yes [id number] 55U inject 55 Units under the skin daily. [facility] Insulin [place], Disposable, (MARGO PEN NEEDLE) 32 gauge x 5/32" Ndle 03-15 00:00: 00 Yes [id number] Use as directed once daily with lantus [facility] atorvastati n 80 mg tablet 03-15 00:00: 00 Yes [id number] TAKE ONE TABLET BY MOUTH EVERY NIGHT AT BEDTIME [facility] empaglifloz in-linaglip tin (GLYXAMBI) 25-5 mg Tab 03-15 00:00: 00 Yes [id number] 1{tbl} Take 1 tablet by mouth daily. [facility] metformin ER 750 mg 24 hr tablet 03-15 00:00: 00 Yes [id number] 750mg Take 1 tablet by mouth daily with breakfast. [facility] sildenafil 100 mg tablet 03-15 00:00: 00 Yes [id number] 100mg Take 1 tablet by mouth once daily as needed (ED). [facility] Insulin Glargine (LANTUS SOLOSTAR U-100 INSULIN) 100 unit/mL (3 mL) injection 03-15 00:00: 00 Yes [id number] 55U inject 55 Units under the skin daily. [facility] Insulin [place], Disposable, (MARGO PEN NEEDLE) 32 gauge x 5/32" Ndle 03-15 00:00: 00 Yes [id number] Use as directed once daily with lantus [facility] empaglifloz in-linaglip tin (GLYXAMBI) 25-5 mg Tab 03-15 00:00: 00 Yes [id number] 1{tbl} Take 1 tablet by mouth daily. [facility] metformin ER 750 mg 24 hr tablet 03-15 00:00: 00 Yes [id number] 750mg Take 1 tablet by mouth daily with breakfast. [facility] sildenafil 100 mg tablet 03-15 00:00: 00 Yes [id number] 100mg Take 1 tablet by mouth once daily as needed (ED). [facility] Insulin Glargine (LANTUS SOLOSTAR U-100 INSULIN) 100 unit/mL (3 mL) injection 03-15 00:00: 00 Yes [id number] 55U inject 55 Units under the skin daily. [facility] amLODIPine 10 mg tablet 03-15 00:00: 00 Yes [id number] 10mg Take 1 tablet by mouth daily. [facility] atorvastati n 80 mg tablet 03-15 00:00: 00 Yes [id number] TAKE ONE TABLET BY MOUTH EVERY NIGHT AT BEDTIME [facility] aspirin 81 mg EC tablet 03-15 00:00: 00 Yes [id number] 81mg Take 1 tablet by mouth daily. [facility] empaglifloz in-linaglip tin (GLYXAMBI) 25-5 mg Tab 03-15 00:00: 00 Yes [id number] 1{tbl} Take 1 tablet by mouth daily. [facility] metformin ER 750 mg 24 hr tablet 03-15 00:00: 00 Yes [id number] 750mg Take 1 tablet by mouth daily with breakfast. [facility] sildenafil 100 mg tablet 03-15 00:00: 00 Yes [id number] 100mg Take 1 tablet by mouth once daily as needed (ED). [facility] Insulin Glargine (LANTUS SOLOSTAR U-100 INSULIN) 100 unit/mL (3 mL) injection 03-15 00:00: 00 Yes [id number] 55U inject 55 Units under the skin daily. [facility] Insulin [place], Disposable, (MARGO PEN NEEDLE) 32 gauge x 5/32" Ndle 03-15 00:00: 00 Yes [id number] Use as directed once daily with lantus [facility] sildenafil 100 mg tablet 03-15 00:00: 00 Yes [id number] 100mg Take 1 tablet by mouth once daily as needed (ED). [facility] sildenafil 100 mg tablet 03-15 00:00: 00 Yes [id number] 100mg Take 1 tablet by mouth once daily as needed (ED). [facility] Insulin Glargine (LANTUS SOLOSTAR U-100 INSULIN) 100 unit/mL (3 mL) injection 03-15 00:00: 00 05-27 00:00 :00 No [id number] 55U inject 55 Units under the skin daily. [facility] empaglifloz in-linaglip tin (GLYXAMBI) 25-5 mg Tab 03-15 00:00: 00 05-24 00:00 :00 No [id number] 1{tbl} Take 1 tablet by mouth daily. [facility] metformin ER 750 mg 24 hr tablet 03-15 00:00: 00 05-24 00:00 :00 No [id number] 750mg Take 1 tablet by mouth daily with breakfast. [facility] atorvastati n 80 mg tablet 03-15 00:00: 00 01-23 00:00 :00 No [id number] TAKE ONE TABLET BY MOUTH EVERY NIGHT AT BEDTIME [facility] Insulin [place], Disposable, (MARGO PEN NEEDLE) 32 gauge x 5/32" Ndle 03-15 00:00: 00 01-23 00:00 :00 No [id number] Use as directed once daily with lantus [facility] amLODIPine 10 mg tablet 03-15 00:00: 04-16 00:00 :00 No [id number] 10mg Take 1 tablet by mouth daily. [facility] aspirin 81 mg EC tablet 03-15 00:00: 04-16 00:00 :00 No [id number] 81mg Take 1 tablet by mouth daily. [facility] AMLODIPINE 10 mg tablet 03-07 00:00: 00 Yes [id number] TAKE ONE TABLET BY MOUTH DAILY [facility] GLYXAMBI 10-5 mg Tab 03-07 00:00: 00 Yes [id number] TAKE ONE TABLET BY MOUTH DAILY [facility] METFORMIN ER 500 mg 24 hr tablet 03-07 00:00: 00 Yes [id number] TAKE ONE TABLET BY MOUTH TWICE A DAY [facility] ATORVASTATI N 80 mg tablet 03-07 00:00: 00 Yes [id number] TAKE ONE TABLET BY MOUTH EVERY NIGHT AT BEDTIME [facility] AMLODIPINE 10 mg tablet 03-07 00:00: 00 03-15 00:00 :00 No [id number] TAKE ONE TABLET BY MOUTH DAILY [facility] GLYXAMBI 10-5 mg Tab 03-07 00:00: 00 03-15 00:00 :00 No [id number] TAKE ONE TABLET BY MOUTH DAILY [facility] METFORMIN ER 500 mg 24 hr tablet 03-07 00:00: 00 03-15 00:00 :00 No [id number] TAKE ONE TABLET BY MOUTH TWICE A DAY [facility] ATORVASTATI N 80 mg tablet 03-07 00:00: 00 03-15 00:00 :00 No [id number] TAKE ONE TABLET BY MOUTH EVERY NIGHT AT BEDTIME [facility] AMLODIPINE 10 mg tablet 03-07 00:00: 00 03-15 00:00 :00 No [id number] TAKE ONE TABLET BY MOUTH DAILY [facility] GLYXAMBI 10-5 mg Tab 03-07 00:00: 00 03-15 00:00 :00 No [id number] TAKE ONE TABLET BY MOUTH DAILY [facility] METFORMIN ER 500 mg 24 hr tablet 03-07 00:00: 03-15 00:00 :00 No [id number] TAKE ONE TABLET BY MOUTH TWICE A DAY [facility] ATORVASTATI N 80 mg tablet 03-07 00:00: 03-15 00:00 :00 No [id number] TAKE ONE TABLET BY MOUTH EVERY NIGHT AT BEDTIME [facility] Insulin Glargine (LANTUS SOLOSTAR U-100 INSULIN) 100 unit/mL (3 mL) injection 12-10 00:00: 00 Yes [id number] 40U inject 40 Units under the skin daily. [facility] Insulin Glargine (LANTUS SOLOSTAR U-100 INSULIN) 100 unit/mL (3 mL) injection 12-10 00:00: 00 03-15 00:00 :00 No [id number] 40U inject 40 Units under the skin daily. [facility] Insulin Glargine (LANTUS SOLOSTAR U-100 INSULIN) 100 unit/mL (3 mL) injection 12-10 00:00: 03-15 00:00 :00 No [id number] 40U inject 40 Units under the skin daily. [facility] empaglifloz in-linaglip tin 10-5 mg Tab 12-10 00:00: 00 03-06 00:00 :00 No [id number] 1{tbl} Take 1 tablet by mouth daily. [facility] sildenafil 50 mg tablet 10-25 00:00: 00 Yes [id number] 50mg Take 1 tablet by mouth once daily as needed (ED). [facility] sildenafil 50 mg tablet 15 00:00: 00 03-15 00:00 :00 No [id number] 50mg Take 1 tablet by mouth once daily as needed (ED). [facility] sildenafil 50 mg tablet 15 00:00: 03-15 00:00 :00 No [id number] 50mg Take 1 tablet by mouth once daily as needed (ED). [facility] ketoconazol e 2 % shampoo 2019-0 3-18 00:00: 00 Yes [id number] Apply to area(s) weekly. [facility] ketoconazol e 2 % shampoo 2019-0 3-18 00:00: 00 Yes [id number] Apply to area(s) weekly. [facility] ketoconazol e 2 % shampoo 2019-0 3-18 00:00: 00 Yes [id number] Apply to area(s) weekly. [facility] ketoconazol e 2 % shampoo 2019-0 3-18 00:00: 00 Yes [id number] Apply to area(s) weekly. [facility] ketoconazol e 2 % shampoo 2019-0 3-18 00:00: 00 Yes [id number] Apply to area(s) weekly. [facility] ketoconazol e 2 % shampoo 2019-0 3-18 00:00: 00 Yes [id number] Apply to area(s) weekly. [facility] ketoconazol e 2 % shampoo 2019-0 3-18 00:00: 00 Yes [id number] Apply to area(s) weekly. [facility] ketoconazol e 2 % shampoo 2019-0 3-18 00:00: 00 Yes [id number] Apply to area(s) weekly. [facility] ketoconazol e 2 % shampoo 2019-0 3-18 00:00: 00 Yes [id number] Apply to area(s) weekly. [facility] ketoconazol e 2 % shampoo 2019-0 3-18 00:00: 00 Yes [id number] Apply to area(s) weekly. [facility] ketoconazol e 2 % shampoo 2019-0 3-18 00:00: 00 Yes [id number] Apply to area(s) weekly. [facility] ketoconazol e 2 % shampoo 2019-0 3-18 00:00: 00 Yes [id number] Apply to area(s) weekly. [facility] ketoconazol e 2 % shampoo 2019-0 3-18 00:00: 00 Yes [id number] Apply to area(s) weekly. [facility] ketoconazol e 2 % shampoo 2019-0 3-18 00:00: 00 Yes [id number] Apply to area(s) weekly. [facility] ketoconazol e 2 % shampoo 2019-0 318 00:00: 00 Yes [id number] Apply to area(s) weekly. [facility] ketoconazol e 2 % shampoo [id number] 00:00: 00 Yes [id number] Apply to area(s) weekly. [facility]-0 318 00:00: 00 Yes [id number] Apply to area(s) weekly. [facility] ketoconazol e 2 % shampoo 2018-0 318 00:00: 00 Yes [id number] Apply to area(s) weekly. [facility] ketoconazol e 2 % shampoo 0 318 00:00: 00 Yes [id number] Apply to area(s) weekly. [facility] ketoconazol e 2 % shampoo 2019-0 318 00:00: 00 Yes [id number] Apply to area(s) weekly. [facility] ketoconazol e 2 % shampoo 2018-0 318 00:00: 00 Yes [id number] Apply to area(s) weekly. [facility] ketoconazol e 2 % shampoo [id number] 00:00: 00 07-14 00:00 :00 No [id number] Apply to area(s) weekly. [facility] lisinopril 10 mg tablet 0 09-08 00:00: 00 Yes [id number] 10mg Take 1 tablet by mouth daily. [facility] lisinopril 10 mg tablet 27 00:00: 00 Yes [id number] 10mg Take 1 tablet by mouth daily. [facility] lisinopril 10 mg tablet 0 09-08 00:00: 00 Yes [id number] 10mg Take 1 tablet by mouth daily. [facility] lisinopril 10 mg tablet 09-08 00:00: 00 Yes [id number] 10mg Take 1 tablet by mouth daily. [facility] lisinopril 10 mg tablet 09-08 00:00: 00 Yes [id number] 10mg Take 1 tablet by mouth daily. [facility] lisinopril 10 mg tablet 09-08 00:00: 00 Yes [id number] 10mg Take 1 tablet by mouth daily. [facility] lisinopril 10 mg tablet 09-08 00:00: 00 Yes [id number] 10mg Take 1 tablet by mouth daily. [facility] lisinopril 10 mg tablet 09-08 00:00: 00 Yes [id number] 10mg Take 1 tablet by mouth daily. [facility] lisinopril 10 mg tablet 09-08 00:00: 00 Yes [id number] 10mg Take 1 tablet by mouth daily. [facility] lisinopril 10 mg tablet 09-08 00:00: 00 Yes [id number] 10mg Take 1 tablet by mouth daily. [facility] lisinopril 10 mg tablet 09-08 00:00: 00 Yes [id number] 10mg Take 1 tablet by mouth daily. [facility] lisinopril 10 mg tablet 09-08 00:00: 00 Yes [id number] 10mg Take 1 tablet by mouth daily. [facility] lisinopril 10 mg tablet 09-08 00:00: 00 Yes [id number] 10mg Take 1 tablet by mouth daily. [facility] lisinopril 10 mg tablet 09-08 00:00: 00 Yes [id number] 10mg Take 1 tablet by mouth daily. [facility] lisinopril 10 mg tablet 09-08 00:00: 00 Yes [id number] 10mg Take 1 tablet by mouth daily. [facility] lisinopril 10 mg tablet 09-08 00:00: 00 Yes [id number] 10mg Take 1 tablet by mouth daily. [facility] lisinopril 10 mg tablet 09-08 00:00: 00 Yes [id number] 10mg Take 1 tablet by mouth daily. [facility] lisinopril 10 mg tablet 09-08 00:00: 00 Yes [id number] 10mg Take 1 tablet by mouth daily. [facility] lisinopril 10 mg tablet 09-08 00:00: 00 Yes [id number] 10mg Take 1 tablet by mouth daily. [facility] lisinopril 10 mg tablet 09-08 00:00: 00 Yes [id number] 10mg Take 1 tablet by mouth daily. [facility] lisinopril 10 mg tablet 09-08 00:00: 00 Yes [id number] 10mg Take 1 tablet by mouth daily. [facility] lisinopril 10 mg tablet 09-08 00:00: 00 Yes [id number] 10mg Take 1 tablet by mouth daily. [facility] lisinopril 10 mg tablet 09-08 00:00: 00 05-24 00:00 :00 No [id number] 10mg Take 1 tablet by mouth daily. [facility] metformin ER 500 mg 24 hr tablet 09-08 00:00: 00 03-06 00:00 :00 No [id number] 500mg Take 1 tablet by mouth 2 (two) times daily. [facility] atorvastati n 80 mg tablet 09-08 00:00: 00 03-06 00:00 :00 No [id number] 80mg Take 1 tablet by mouth at bedtime. [facility] amLODIPine 10 mg tablet 09-08 00:00: 00 03-06 00:00 :00 No [id number] 10mg Take 1 tablet by mouth daily. [facility] sulfamethox azole-trime thoprim 800-160 mg per tablet 09-03 00:00: 00 Yes [facility] sulfamethox azole-trime thoprim 800-160 mg per tablet 09-03 00:00: 00 Yes [facility] sulfamethox azole-trime thoprim 800-160 mg per tablet 0 09-03 00:00: 00 Yes [facility] sulfamethox azole-trime thoprim 800-160 mg per tablet 0 09-03 00:00: 00 Yes [facility] sulfamethox azole-trime thoprim 800-160 mg per tablet 0 09-03 00:00: 00 Yes [facility] sulfamethox azole-trime thoprim 800-160 mg per tablet 0 09-03 00:00: 00 Yes [facility] sulfamethox azole-trime thoprim 800-160 mg per tablet 0 09-03 00:00: 00 Yes [facility] sulfamethox azole-trime thoprim 800-160 mg per tablet 0 09-03 00:00: 00 Yes [facility] sulfamethox azole-trime thoprim 800-160 mg per tablet 0 09-03 00:00: 00 Yes [facility] sulfamethox azole-trime thoprim 800-160 mg per tablet 0 09-03 00:00: 00 Yes [facility] sulfamethox azole-trime thoprim 800-160 mg per tablet 0 09-03 00:00: 00 Yes [facility] sulfamethox azole-trime thoprim 800-160 mg per tablet 0 09-03 00:00: 00 Yes [facility] sulfamethox azole-trime thoprim 800-160 mg per tablet 0 09-03 00:00: 00 04-16 00:00 :00 No [facility] Immunizations Ordered Immunization Name Filled Immunization Name Date Status Comments Source SARS-COV-2 COVID-19 PFIZER CHELE-SUCROSE VACCINE (STACK TOP) 2022-04-16 00:00:00 Completed [facility] SARS-COV-2 COVID-19 PFIZER CHELE-SUCROSE VACCINE (STACK TOP) 2022-04-16 00:00:00 Completed [facility] SARS-COV-2 COVID-19 PFIZER CHELE-SUCROSE VACCINE (STACK TOP) 2022-04-16 00:00:00 Completed [facility] SARS-COV-2 COVID-19 PFIZER CHELE-SUCROSE VACCINE (STACK TOP) 2022-04-16 00:00:00 Completed [facility] SARS-COV-2 COVID-19 PFIZER CHELE-SUCROSE VACCINE (STACK TOP) 2022-04-16 00:00:00 Completed [facility] SARS-COV-2 COVID-19 PFIZER CHELE-SUCROSE VACCINE (STACK TOP) 2022-04-16 00:00:00 Completed [facility] SARS-COV-2 COVID-19 PFIZER CHELE-SUCROSE VACCINE (STACK TOP) 2022-04-16 00:00:00 Completed [facility] SARS-COV-2 COVID-19 PFIZER CHELE-SUCROSE VACCINE (STACK TOP) 2022-04-16 00:00:00 Completed [facility] SARS-COV-2 COVID-19 PFIZER CHELE-SUCROSE VACCINE (STACK TOP) 2022-04-16 00:00:00 Completed [facility] TDAP (ADACEL) VACCINE 2018-09-27 00:00:00 Completed [facility] TDAP (ADACEL) VACCINE 2018-09-27 00:00:00 Completed [facility] TDAP (ADACEL) VACCINE 2018-09-27 00:00:00 Completed [facility] TDAP (ADACEL) VACCINE 2018-09-27 00:00:00 Completed [facility] TDAP (ADACEL) VACCINE 2018-09-27 00:00:00 Completed [facility] TDAP (ADACEL) VACCINE 2018-09-27 00:00:00 Completed [facility] TDAP (ADACEL) VACCINE 2018-09-27 00:00:00 Completed [facility] TDAP (ADACEL) VACCINE 2018-09-27 00:00:00 Completed [facility] TDAP (ADACEL) VACCINE 2018-09-27 00:00:00 Completed [facility] TDAP (ADACEL) VACCINE 2018-09-27 00:00:00 Completed [facility] TDAP (ADACEL) VACCINE 2018-09-27 00:00:00 Completed [facility] TDAP (ADACEL) VACCINE 2018-09-27 00:00:00 Completed [facility] TDAP (ADACEL) VACCINE 2018-09-27 00:00:00 Completed [facility] TDAP (ADACEL) VACCINE 2018-09-27 00:00:00 Completed [facility] TDAP (ADACEL) VACCINE 2018-09-27 00:00:00 Completed [facility] TDAP (ADACEL) VACCINE 2018-09-27 00:00:00 Completed [facility] TDAP (ADACEL) VACCINE 2018-09-27 00:00:00 Completed [facility] TDAP (ADACEL) VACCINE 2018-09-27 00:00:00 Completed [facility] TDAP (ADACEL) VACCINE 2018-09-27 00:00:00 Completed [facility] TDAP (ADACEL) VACCINE 2018-09-27 00:00:00 Completed [facility] TDAP (ADACEL) VACCINE 2018-09-27 00:00:00 Completed [facility] TDAP (ADACEL) VACCINE 2018-09-27 00:00:00 Completed [facility] Pneumococcal Polysaccharide, PPSV23 (PNEUMOVAX) 2012-10-07 00:00:00 Completed [facility] Hep B, Adol or Pedi Dosage 2012-10-07 00:00:00 Completed [facility] Pneumococcal Polysaccharide, PPSV23 (PNEUMOVAX) 2012-10-07 00:00:00 Completed [facility] Hep B, Adol or Pedi Dosage 2012-10-07 00:00:00 Completed [facility] Pneumococcal Polysaccharide, PPSV23 (PNEUMOVAX) 2012-10-07 00:00:00 Completed [facility] Hep B, Adol or Pedi Dosage 2012-10-07 00:00:00 Completed [facility] Pneumococcal Polysaccharide, PPSV23 (PNEUMOVAX) 2012-10-07 00:00:00 Completed [facility] Hep B, Adol or Pedi Dosage 2012-10-07 00:00:00 Completed [facility] Pneumococcal Polysaccharide, PPSV23 (PNEUMOVAX) 2012-10-07 00:00:00 Completed [facility] Hep B, Adol or Pedi Dosage 2012-10-07 00:00:00 Completed [facility] Pneumococcal Polysaccharide, PPSV23 (PNEUMOVAX) 2012-10-07 00:00:00 Completed [facility] Hep B, Adol or Pedi Dosage 2012-10-07 00:00:00 Completed [facility] Pneumococcal Polysaccharide, PPSV23 (PNEUMOVAX) 2012-10-07 00:00:00 Completed [facility] Hep B, Adol or Pedi Dosage 2012-10-07 00:00:00 Completed [facility] Pneumococcal Polysaccharide, PPSV23 (PNEUMOVAX) 2012-10-07 00:00:00 Completed [facility] Hep B, Adol or Pedi Dosage 2012-10-07 00:00:00 Completed [facility] Pneumococcal Polysaccharide, PPSV23 (PNEUMOVAX) 2012-10-07 00:00:00 Completed [facility] Hep B, Adol or Pedi Dosage 2012-10-07 00:00:00 Completed [facility] Pneumococcal Polysaccharide, PPSV23 (PNEUMOVAX) 2012-10-07 00:00:00 Completed [facility] Hep B, Adol or Pedi Dosage 2012-10-07 00:00:00 Completed [facility] Pneumococcal Polysaccharide, PPSV23 (PNEUMOVAX) 2012-10-07 00:00:00 Completed [facility] Hep B, Adol or Pedi Dosage 2012-10-07 00:00:00 Completed [facility] Pneumococcal Polysaccharide, PPSV23 (PNEUMOVAX) 2012-10-07 00:00:00 Completed [facility] Hep B, Adol or Pedi Dosage 2012-10-07 00:00:00 Completed [facility] Pneumococcal Polysaccharide, PPSV23 (PNEUMOVAX) 2012-10-07 00:00:00 Completed [facility] Hep B, Adol or Pedi Dosage 2012-10-07 00:00:00 Completed [facility] Pneumococcal Polysaccharide, PPSV23 (PNEUMOVAX) 2012-10-07 00:00:00 Completed [facility] Pneumococcal Polysaccharide, PPSV23 (PNEUMOVAX) 2012-10-07 00:00:00 Completed [facility] Hep B, Adol or Pedi Dosage 2012-10-07 00:00:00 Completed [facility] Hep B, Adol or Pedi Dosage 2012-10-07 00:00:00 Completed [facility] Pneumococcal Polysaccharide, PPSV23 (PNEUMOVAX) 2012-10-07 00:00:00 Completed [facility] Hep B, Adol or Pedi Dosage 2012-10-07 00:00:00 Completed [facility] Pneumococcal Polysaccharide, PPSV23 (PNEUMOVAX) 2012-10-07 00:00:00 Completed [facility] Hep B, Adol or Pedi Dosage 2012-10-07 00:00:00 Completed [facility] Pneumococcal Polysaccharide, PPSV23 (PNEUMOVAX) 2012-10-07 00:00:00 Completed [facility] Hep B, Adol or Pedi Dosage 2012-10-07 00:00:00 Completed [facility] Pneumococcal Polysaccharide, PPSV23 (PNEUMOVAX) 2012-10-07 00:00:00 Completed [facility] Hep B, Adol or Pedi Dosage 2012-10-07 00:00:00 Completed [facility] Pneumococcal Polysaccharide, PPSV23 (PNEUMOVAX) 2012-10-07 00:00:00 Completed [facility] Hep B, Adol or Pedi Dosage 2012-10-07 00:00:00 Completed [facility] Pneumococcal Polysaccharide, PPSV23 (PNEUMOVAX) 2012-10-07 00:00:00 Completed [facility] Hep B, Adol or Pedi Dosage 2012-10-07 00:00:00 Completed [facility] Pneumococcal Polysaccharide, PPSV23 (PNEUMOVAX) 2012-10-07 00:00:00 Completed [facility] Hep B, Adol or Pedi Dosage 2012-10-07 00:00:00 Completed [facility] Influenza Virus Vaccine 2012-05-09 00:00:00 Completed [facility] Influenza Virus Vaccine 2012-05-09 00:00:00 Completed [facility] Influenza Virus Vaccine 2012-05-09 00:00:00 Completed [facility] Influenza Virus Vaccine 2012-05-09 00:00:00 Completed [facility] Influenza Virus Vaccine 2012-05-09 00:00:00 Completed [facility] Influenza Virus Vaccine 2012-05-09 00:00:00 Completed [facility] Influenza Virus Vaccine 2012-05-09 00:00:00 Completed [facility] Influenza Virus Vaccine 2012-05-09 00:00:00 Completed [facility] Influenza Virus Vaccine 2012-05-09 00:00:00 Completed [facility] Influenza Virus Vaccine 2012-05-09 00:00:00 Completed [facility] Influenza Virus Vaccine 2012-05-09 00:00:00 Completed [facility] Influenza Virus Vaccine 2012-05-09 00:00:00 Completed [facility] Influenza Virus Vaccine 2012-05-09 00:00:00 Completed [facility] Influenza Virus Vaccine 2012-05-09 00:00:00 Completed [facility] Influenza Virus Vaccine 2012-05-09 00:00:00 Completed [facility] Influenza Virus Vaccine 2012-05-09 00:00:00 Completed [facility] Influenza Virus Vaccine 2012-05-09 00:00:00 Completed [facility] Influenza Virus Vaccine 2012-05-09 00:00:00 Completed [facility] Influenza Virus Vaccine 2012-05-09 00:00:00 Completed [facility] Influenza Virus Vaccine 2012-05-09 00:00:00 Completed [facility] Influenza Virus Vaccine 2012-05-09 00:00:00 Completed [facility] Influenza Virus Vaccine 2012-05-09 00:00:00 Completed [facility] Influenza Virus Vaccine Unknown Completed [facility] Pneumococcal Polysaccharide, PPSV23 (PNEUMOVAX) Unknown Completed [facility] Hep B, Adol or Pedi Dosage Unknown Completed [facility] TDAP (ADACEL) VACCINE Unknown Completed [facility] SARS-COV-2 COVID-19 PFIZER CHELE-SUCROSE VACCINE (STACK TOP) Unknown Completed [facility] Influenza Virus Vaccine Unknown Completed [facility] Pneumococcal Polysaccharide, PPSV23 (PNEUMOVAX) Unknown Completed [facility] Hep B, Adol or Pedi Dosage Unknown Completed [facility] TDAP (ADACEL) VACCINE Unknown Completed [facility] SARS-COV-2 COVID-19 PFIZER CHELE-SUCROSE VACCINE (STACK TOP) Unknown Completed [facility] Influenza Virus Vaccine Unknown Completed [facility] Pneumococcal Polysaccharide, PPSV23 (PNEUMOVAX) Unknown Completed [facility] Hep B, Adol or Pedi Dosage Unknown Completed [facility] TDAP (ADACEL) VACCINE Unknown Completed [facility] SARS-COV-2 COVID-19 PFIZER CHELE-SUCROSE VACCINE (STACK TOP) Unknown Completed [facility] Influenza Virus Vaccine Unknown Completed [facility] Pneumococcal Polysaccharide, PPSV23 (PNEUMOVAX) Unknown Completed [facility] Hep B, Adol or Pedi Dosage Unknown Completed [facility] TDAP (ADACEL) VACCINE Unknown Completed [facility] SARS-COV-2 COVID-19 PFIZER CHELE-SUCROSE VACCINE (STACK TOP) Unknown Completed [facility] Influenza Virus Vaccine Unknown Completed [facility] Pneumococcal Polysaccharide, PPSV23 (PNEUMOVAX) Unknown Completed [facility] Hep B, Adol or Pedi Dosage Unknown Completed [facility] TDAP (ADACEL) VACCINE Unknown Completed [facility] SARS-COV-2 COVID-19 PFIZER CHELE-SUCROSE VACCINE (STACK TOP) Unknown Completed [facility] Influenza Virus Vaccine Quad IM, Preserv and ABX Free 6 MO-64 YRS (FLUCELVAX) Unknown Completed [facility] Influenza Virus Vaccine Unknown Completed [facility] Pneumococcal Polysaccharide, PPSV23 (PNEUMOVAX) Unknown Completed [facility] Hep B, Adol or Pedi Dosage Unknown Completed [facility] TDAP (ADACEL) VACCINE Unknown Completed [facility] SARS-COV-2 COVID-19 PFIZER CHELE-SUCROSE VACCINE (STACK TOP) Unknown Completed [facility] Influenza Virus Vaccine Quad IM, Preserv and ABX Free 6 MO-64 YRS (FLUCELVAX) Unknown Completed [facility] Influenza Virus Vaccine Unknown Completed [facility] Pneumococcal Polysaccharide, PPSV23 (PNEUMOVAX) Unknown Completed [facility] Hep B, Adol or Pedi Dosage Unknown Completed [facility] TDAP (ADACEL) VACCINE Unknown Completed [facility] SARS-COV-2 COVID-19 PFIZER CHELE-SUCROSE VACCINE (STACK TOP) Unknown Completed [facility] Influenza Virus Vaccine Quad IM, Preserv and ABX Free 6 MO-64 YRS (FLUCELVAX) Unknown Completed [facility] Influenza Virus Vaccine Unknown Completed [facility] Pneumococcal Polysaccharide, PPSV23 (PNEUMOVAX) Unknown Completed [facility] Hep B, Adol or Pedi Dosage Unknown Completed [facility] TDAP (ADACEL) VACCINE Unknown Completed [facility] SARS-COV-2 COVID-19 PFIZER CHELE-SUCROSE VACCINE (STACK TOP) Unknown Completed [facility] Influenza Virus Vaccine Quad IM, Preserv and ABX Free 6 MO-64 YRS (FLUCELVAX) Unknown Completed [facility] Influenza Virus Vaccine Unknown Completed [facility] Pneumococcal Polysaccharide, PPSV23 (PNEUMOVAX) Unknown Completed [facility] Hep B, Adol or Pedi Dosage Unknown Completed [facility] TDAP (ADACEL) VACCINE Unknown Completed [facility] SARS-COV-2 COVID-19 PFIZER CHELE-SUCROSE VACCINE (STACK TOP) Unknown Completed [facility] Influenza Virus Vaccine Quad IM, Preserv and ABX Free 6 MO-64 YRS (FLUCELVAX) Unknown Completed [facility] Influenza Virus Vaccine Unknown Completed [facility] Pneumococcal Polysaccharide, PPSV23 (PNEUMOVAX) Unknown Completed [facility] Hep B, Adol or Pedi Dosage Unknown Completed [facility] TDAP (ADACEL) VACCINE Unknown Completed [facility] SARS-COV-2 COVID-19 PFIZER CHELE-SUCROSE VACCINE (STACK TOP) Unknown Completed [facility] Influenza Virus Vaccine Quad IM, Preserv and ABX Free 6 MO-64 YRS (FLUCELVAX) Unknown Completed [facility] Influenza Virus Vaccine Unknown Completed [facility] Pneumococcal Polysaccharide, PPSV23 (PNEUMOVAX) Unknown Completed [facility] Hep B, Adol or Pedi Dosage Unknown Completed [facility] TDAP (ADACEL) VACCINE Unknown Completed [facility] SARS-COV-2 COVID-19 PFIZER CHELE-SUCROSE VACCINE (STACK TOP) Unknown Completed [facility] Influenza Virus Vaccine Quad IM, Preserv and ABX Free 6 MO-64 YRS (FLUCELVAX) Unknown Completed [facility] Influenza Virus Vaccine Unknown Completed [facility] Pneumococcal Polysaccharide, PPSV23 (PNEUMOVAX) Unknown Completed [facility] Hep B, Adol or Pedi Dosage Unknown Completed [facility] TDAP (ADACEL) VACCINE Unknown Completed [facility] SARS-COV-2 COVID-19 PFIZER CHLEE-SUCROSE VACCINE (STACK TOP) [facility] Quad IM, Preserv and ABX Free 6 MO-64 YRS (FLUCELVAX) Unknown Completed [facility] Influenza Virus Vaccine Unknown Completed [facility] Pneumococcal Polysaccharide, PPSV23 (PNEUMOVAX) Unknown Completed [facility] Hep B, Adol or Pedi Dosage Unknown [facility] [facility] TDAP (ADACEL) VACCINE Unknown Completed [facility] SARS-COV-2 COVID-19 PFIZER CHELE-SUCROSE VACCINE (STACK TOP) Unknown Completed [facility] Influenza Virus Vaccine Quad IM, Preserv and ABX Free 6 MO-64 YRS (FLUCELVAX) Unknown Completed [facility] Influenza Virus Vaccine Unknown Completed [facility] Pneumococcal Polysaccharide, PPSV23 (PNEUMOVAX) Unknown Completed [facility] Hep B, Adol or Pedi Dosage Unknown Completed [facility] TDAP (ADACEL) VACCINE Unknown Completed [facility] SARS-COV-2 COVID-19 PFIZER CHELE-SUCROSE VACCINE (STACK TOP) Unknown Completed [facility] Influenza Virus Vaccine Quad IM, Preserv and ABX Free 6 MO-64 YRS (FLUCELVAX) Unknown Completed [facility] Influenza Virus Vaccine Unknown Completed [facility] Pneumococcal Polysaccharide, PPSV23 (PNEUMOVAX) Unknown Completed [facility] Hep B, Adol or Pedi Dosage Unknown Completed [facility] TDAP (ADACEL) VACCINE Unknown Completed [facility] SARS-COV-2 COVID-19 PFIZER CHELE-SUCROSE VACCINE (STACK TOP) Unknown Completed [facility] Influenza Virus Vaccine Quad IM, Preserv and ABX Free 6 MO-64 YRS (FLUCELVAX) Unknown Completed [facility] Influenza Virus Vaccine Unknown Completed [facility] Pneumococcal Polysaccharide, PPSV23 (PNEUMOVAX) Unknown Completed [facility] Hep B, Adol or Pedi Dosage Unknown Completed [facility] TDAP (ADACEL) VACCINE Unknown Completed [facility] SARS-COV-2 COVID-19 PFIZER CHELE-SUCROSE VACCINE (STACK TOP) Unknown Completed [facility] Influenza Virus Vaccine Quad IM, Preserv and ABX Free 6 MO-64 YRS (FLUCELVAX) Unknown Completed [facility] Influenza Virus Vaccine Unknown Completed [facility] Pneumococcal Polysaccharide, PPSV23 (PNEUMOVAX) Unknown Completed [facility] Hep B, Adol or Pedi Dosage Unknown Completed [facility] TDAP (ADACEL) VACCINE Unknown Completed [facility] SARS-COV-2 COVID-19 PFIZER CHELE-SUCROSE VACCINE (STACK TOP) Unknown Completed [facility] Influenza Virus Vaccine Quad IM, Preserv and ABX Free 6 MO-64 YRS (FLUCELVAX) Unknown Completed [facility] Influenza Virus Vaccine Unknown Completed [facility] Pneumococcal Polysaccharide, PPSV23 (PNEUMOVAX) Unknown Completed [facility] Hep B, Adol or Pedi Dosage Unknown Completed [facility] TDAP (ADACEL) VACCINE Unknown Completed [facility] SARS-COV-2 COVID-19 PFIZER CHELE-SUCROSE VACCINE (STACK TOP) Unknown Completed [facility] Influenza Virus Vaccine Quad IM, Preserv and ABX Free 6 MO-64 YRS (FLUCELVAX) Unknown Completed [facility] Influenza Virus Vaccine Unknown Completed [facility] Pneumococcal Polysaccharide, PPSV23 (PNEUMOVAX) Unknown Completed [facility] Hep B, Adol or Pedi Dosage Unknown Completed [facility] TDAP (ADACEL) VACCINE Unknown Completed [facility] SARS-COV-2 COVID-19 PFIZER CHELE-SUCROSE VACCINE (STACK TOP) Unknown Completed [facility] Vital Signs Vital Name Observation Time Observation Value Comments S ource Systolic blood pressure 2023-06-23 15:10:00 143 mm[Hg] [facility] Diastolic blood pressure 2023-06-23 15:10:00 81 mm[Hg] [facility] Heart rate 2023-06-23 15:09:00 101 /min [facility] Body height 2023-06-23 15:09:[address] [facility] Body weight 2023-06-23 15:09:[address] [facility] BMI 2023-06-23 15:09:00 25.91 kg/m2 [facility] Oxygen saturation in Arterial blood by Pulse oximetry 2023-06-23 15:09:00 97 /min [facility] Systolic blood pressure 2023-05-27 10:10:00 135 mm[Hg] [facility] Diastolic blood pressure 2023-05-27 10:10:00 82 mm[Hg] [facility] Heart rate 2023-05-27 10:10:00 87 /min [facility] Body temperature 2023-05-27 10:10:00 36.5 Anna [facility] Respiratory rate 2023-05-27 10:10:00 20 /min [facility] Oxygen saturation in Arterial blood by Pulse oximetry 2023-05-27 10:10:00 96 /min [facility] Body weight 2023-05-25 04:35:[address] [facility] BMI 2023-05-25 04:35:00 24.74 kg/m2 [facility] Body height 2023-05-24 22:00:[address] [facility] Systolic blood pressure 2023-01-23 18:02:00 136 mm[Hg] [facility] Diastolic blood pressure 2023-01-23 18:02:00 85 mm[Hg] [facility] Heart rate 2023-01-23 18:02:00 87 /min [facility] Respiratory rate 2023-01-23 18:02:00 17 /min [facility] Oxygen saturation in Arterial blood by Pulse oximetry 2023-01-23 18:02:00 98 /min [facility] Body temperature 2023-01-23 15:26:00 36.61 Anna [facility] Body height 2023-01-23 15:26:[address] [facility] Body weight 2023-01-23 15:26:[address] [facility] BMI 2023-01-23 15:26:00 27.20 kg/m2 [facility] Systolic blood pressure 2022-05-14 14:09:00 126 mm[Hg] [facility] Diastolic blood pressure 2022-05-14 14:09:00 85 mm[Hg] [facility] Heart rate 2022-05-14 14:09:00 105 /min [facility] Body temperature 2022-05-14 14:09:00 36.22 Anna [facility] Body height 2022-05-14 14:09:[address] [facility] Body weight 2022-05-14 14:09:[address] [facility] BMI 2022-05-14 14:09:00 26.08 kg/m2 [facility] Systolic blood pressure 2022-04-16 21:00:00 141 mm[Hg] [facility] Diastolic blood pressure 2022-04-16 21:00:00 70 mm[Hg] [facility] Heart rate 2022-04-16 21:00:00 92 /min [facility] Body temperature 2022-04-16 21:00:00 36.83 Anna [facility] Respiratory rate 2022-04-16 21:00:00 20 /min [facility] Oxygen saturation in Arterial blood by Pulse oximetry 2022-04-16 21:00:00 98 /min [facility] Systolic blood pressure 2022-04-13 12:10:00 126 mm[Hg] [facility] Diastolic blood pressure 2022-04-13 12:10:00 79 mm[Hg] [facility] Heart rate 2022-04-13 12:10:00 89 /min [facility] Body temperature 2022-04-13 12:10:00 36 Anna [facility] Respiratory rate 2022-04-13 12:10:00 18 /min [facility] Oxygen saturation in Arterial blood by Pulse oximetry 2022-04-13 12:10:00 96 /min [facility] Systolic blood pressure 2022-04-12 04:00:00 139 mm[Hg] [facility] Diastolic blood pressure 2022-04-12 04:00:00 81 mm[Hg] [facility] Heart rate 2022-04-12 04:00:00 99 /min [facility] Respiratory rate 2022-04-12 04:00:00 16 /min [facility] Oxygen saturation in Arterial blood by Pulse oximetry 2022-04-12 04:00:00 96 /min [facility] Body temperature 2022-04-11 22:15:00 37.17 Anna [facility] Body height 2022-04-11 22:15:[address] [facility] Body weight 2022-04-11 22:15:[address] [facility] BMI 2022-04-11 22:15:00 29.29 kg/m2 [facility] Systolic blood pressure 2020-09-17 20:23:00 105 mm[Hg] [facility] Diastolic blood pressure 2020-09-17 20:23:00 76 mm[Hg] [facility] Body temperature 2020-09-17 20:23:00 35.83 Anna [facility] Respiratory rate 2020-09-17 20:23:00 16 /min [facility] Body height 2020-09-17 20:23:[address] [facility] Body weight 2020-09-17 20:23:[address] [facility] BMI 2020-09-17 20:23:00 30.52 kg/m2 [facility] Oxygen saturation in Arterial blood by Pulse oximetry 2020-09-17 20:23:00 96 /min [facility] Diastolic blood pressure 2019-03-15 14:43:00 78 mm[Hg] [facility] Systolic blood pressure 2019-03-15 14:43:00 126 mm[Hg] [facility] Heart rate 2019-03-15 14:26:00 67 /min [facility] Body temperature 2019-03-15 14:26:00 36.33 Anna [facility] Respiratory rate 2019-03-15 14:26:00 18 /min [facility] Body height 2019-03-15 14:26:[address] [facility] Body weight 2019-03-15 14:26:[address] [facility] BMI 2019-03-15 14:26:00 32.61 kg/m2 [facility] Oxygen saturation in Arterial blood by Pulse oximetry 2019-03-15 14:26:00 99 /min [facility] Procedures Procedure Date / Time Performed Performing Clinician Source XR LUMBAR SPINE 3 VW 2023-06-23 16:10:08 Omaira Modi [facility] FLU VACC ([id number]), 6 MO-64 YRS, .5ML, IM, QUAD (FLUCELVAX) 2023-06-23 15:28:55 Omaira Ragsdale [facility] ASSIGNMENT OF BENEFITS 2023-06-23 14:55:46 Docto r Unassigned, [place] [facility] POCT GLUCOSE (AUTOMATED) 2023-05-27 19:58:00 Reginaldo Proctor [facility] POCT GLUCOSE (AUTOMATED) 2023-05-27 17:27:00 Reginaldo Proctor [facility] POCT GLUCOSE (AUTOMATED) 2023-05-27 14:27:00 Reginaldo Proctor [facility] POCT GLUCOSE (AUTOMATED) 2023-05-27 11:52:00 Reginaldo Proctor [facility] MAGNESIUM 2023-05-27 10:39:00 Hebert Graham [facility] BASIC METABOLIC PANEL (NA, K, CL, CO2, GLUCOSE, BUN, CREATININE, CA) 2023-05-27 10:39:00 [facility] 2023-05-27 08:35:00 Reginaldo Proctor [facility] POCT GLUCOSE (AUTOMATED) 2023-05-27 05:07:00 Reginaldo Proctor [facility] POCT GLUCOSE (AUTOMATED) 2023-05-27 02:13:00 Reginaldo Proctor [facility] POCT GLUCOSE (AUTOMATED) 2023-05-26 23:23:00 Reginaldo Proctor [facility] BASIC METABOLIC PANEL (NA, K, CL, CO2, GLUCOSE, BUN, CREATININE, CA) 2023-05-26 21:44:00 Tito Graham [facility] POCT GLUCOSE (AUTOMATED) 2023-05-26 21:03:00 eRginaldo Proctor [facility] POCT GLUCOSE (AUTOMATED) 2023-05-26 17:38:00 Reginaldo Proctor [facility] POCT GLUCOSE (AUTOMATED) 2023-05-26 14:52:00 Reginaldo Proctor [facility] MAGNESIUM 2023-05-26 11:09:00 Hebert Graham [facility] BASIC METABOLIC PANEL (NA, K, CL, CO2, GLUCOSE, BUN, CREATININE, CA) 2023-05-26 11:09:00 [facility] WITH DIFF 2023-05-26 11:09:00 Hebert Graham [facility] POCT GLUCOSE (AUTOMATED) 2023-05-26 11:01:00 Reginaldo Proctor [facility] POCT GLUCOSE (AUTOMATED) 2023-05-26 08:47:00 Reginaldo Proctor [facility] POCT GLUCOSE (AUTOMATED) 2023-05-26 04:59:00 Reginaldo Proctor [facility] BASIC METABOLIC PANEL (NA, K, CL, CO2, GLUCOSE, BUN, CREATININE, CA) 2023-05-26 02:17:00 [facility]) 2023-05-26 01:58:00 Reginaldo Proctor [facility] POCT GLUCOSE (AUTOMATED) 2023-05-25 22:37:00 Reginaldo Proctor [facility] MR BRAIN WO CONTRAST 2023-05-25 22:11:00 Otis Venegas [facility] VITAMIN B12, LEVEL 2023-05-25 20:12:00 Abhilash Alcantar [facility] BASIC METABOLIC PANEL (NA, K, CL, CO2, GLUCOSE, BUN, CREATININE, CA) 2023-05-25 20:12:00 [facility] 2023-05-25 20:03:00 Reginaldo Proctor [facility] CREATININE, URINE RANDOM 2023-05-25 17:23:00 Amy arora Tito [facility] SODIUM, URINE RANDOM 2023-05-25 17:23:00 Santos Tito [facility] POCT GLUCOSE (AUTOMATED) 2023-05-25 16:56:00 Reginaldo Proctor [facility] POCT GLUCOSE (AUTOMATED) 2023-05-25 15:36:00 Reginaldo Proctor [facility] OSMOLALITY, SERUM OR PLASMA 2023-05-25 14:02:00 Santos Tito [facility] BASIC METABOLIC PANEL (NA, K, CL, CO2, GLUCOSE, BUN, CREATININE, CA) 2023-05-25 14:02:00 Santos Tito [facility] POCT GLUCOSE (AUTOMATED) 2023-05-25 14:01:00 Reginaldo Proctor [facility] POCT GLUCOSE (AUTOMATED) 2023-05-25 11:07:00 Gauri [facility] POCT GLUCOSE (AUTOMATED) 2023-05-25 09:54:00 Sara Astorga [facility] PHOSPHORUS 2023-05-25 08:15:00 Rubi [facility] CREATINE KINASE 2023-05-25 08:15:00 Rubi [facility] MAGNESIUM 2023-05-25 08:15:00 Rubi [facility] FOLATE 2023-05-25 08:15:00 Rubi [facility] BETA HYDROXY-BUTYRATE 2023-05-25 08:15:00 Rubi [facility] BASIC METABOLIC PANEL (NA, K, CL, CO2, GLUCOSE, BUN, CREATININE, CA) 2023-05-25 08:15:00 Rubi [facility] CBC WITHOUT DIFF 2023-05-25 08:15:00 Rubi [facility] HEPATITIS B SURFACE ANTIBODY 2023-05-25 08:15:00 Rubi [facility] HEPATITIS B SURFACE ANTIGEN 2023-05-25 08:15:00 Rubi [facility] HCV ANTIBODY 2023-05-25 08:15:00 Rubi [facility] POCT GLUCOSE (AUTOMATED) 2023-05-25 08:00:00 Gauri [facility] POCT GLUCOSE (AUTOMATED) 2023-05-25 05:21:00 Gauri [facility] PROLACTIN 2023-05-25 05:18:00 Rubi [facility] GLYCOSYLATED HEMOGLOBIN (A1C) 2023-05-25 05:18:00 Rubi [facility] URINALYSIS 2023-05-25 05:15:00 Rubi [facility] URINE CULTURE 2023-05-25 05:15:00 Rubi [facility] HB ECG ROUTINE & RHYTHM STRIP 2023-05-25 04:56:17 Rubi [facility] AMMONIA, PLASMA 2023-05-24 22:53:00 Ezio Heath [facility] URINE DRUG (IMMUNOASSAY) - COMPREHENSIVE DRUG SCREEN 2023-05-24 22:50:00 [facility]-24 22:50:00 Ezio Heath [facility] HB ECG ROUTINE & RHYTHM STRIP 2023-05-24 22:40:54 Ezio Heath [facility] HEPATIC FUNCTION PANEL (67133) (ALB,T.PRO,BILI T,BU/BC,ALT,AST,ALK PHOS) 2023-05-24 22:40:00 Rubi [facility] BASIC METABOLIC PANEL (NA, K, CL, CO2, GLUCOSE, BUN, CREATININE, CA) 2023-05-24 22:40:00 Ezio Heath [facility] HIV 1/2 AG-AB WITH REFLEX 2023-05-24 22:40:[address] Rub[address] [facility] CT STROKE ANGIOGRAM HEAD 2023-05-24 22:38:34 Asuncion Heath [facility] CT STROKE ANGIOGRAM NECK 2023-05-24 22:38:34 Asuncion Heath [facility] CT STROKE PERFUSION W CONTRAST 2023-05-24 22:38:34 Ezio Heath [facility] ASSIGNMENT OF BENEFITS 2023-05-24 22:30:17 Docto r Unassigned, [place] [facility] CT STROKE HEAD WO CONTRAST 2023-05-24 22:21:38 Ezio Heath [facility] CONSENT/REFUSAL FOR DIAGNOSIS AND TREATMENT 2023-05-24 22:17:24 Doctor Unassigned, [place] [facility] TROPONIN I 2023-05-24 22:05:00 Ezio Heath [facility] FREE T4 2023-05-24 22:05:00 Ezio Heath [facility] THYROID STIMULATING HORMONE 2023-05-24 22:05:00 Ezio Heath [facility] SALICYLATE 2023-05-24 22:05:00 Ezio Heath [facility] ETHANOL 2023-05-24 22:05:00 Ezio Heath [facility] CBC WITHOUT DIFF 2023-05-24 22:05:00 Ezio Heath [facility] PROTHROMBIN TIME / INR 2023-05-24 22:05:00 Jonah Heath [facility] ACTIVATED PARTIAL THRMPLAS RENEA 2023-05-24 22:05:00 Ezio Heath [facility] POCT GLUCOSE (AUTOMATED) 2023-05-24 22:03:00 Asuncion Heath [facility] ASSIGNMENT OF BENEFITS 2023-01-23 16:39:03 Docto r Unassigned, [place] [facility] BASIC METABOLIC PANEL (NA, K, CL, CO2, GLUCOSE, BUN, CREATININE, CA) 2023-01-23 16:28:00 Arnaldo Connelly [facility] CBC WITH DIFF 2023-01-23 16:28:00 Arnaldo Connelly [facility] NOTICE OF PRIVACY PRACTICES 2023-01-23 15:16:05 Doctor Unassigned, [place] [facility] CONSENT/REFUSAL FOR DIAGNOSIS AND TREATMENT 2023-01-23 15:15:26 Doctor Unassigned, [place] [facility] XR HIPS 2 VW RIGHT 2022-05-14 14:30:00 Edin Duenas [facility] ASSIGNMENT OF BENEFITS 2022-05-14 13:55:20 Docto r Unassigned, [place] [facility] POCT GLUCOSE (AUTOMATED) 2022-04-16 22:43:00 Jessa Boles [facility] COVID-19 (ID NOW RAPID TESTING) 2022-04-16 17:52:00 Aldo Sosa [facility] POCT GLUCOSE (AUTOMATED) 2022-04-16 17:48:00 Jessa Boles [facility] BASIC METABOLIC PANEL (NA, K, CL, CO2, GLUCOSE, BUN, CREATININE, CA) 2022-04-16 13:42:00 Aldo Sosa [facility] CBC WITHOUT DIFF 2022-04-16 13:41:00 Aldo Sosa [facility] POCT GLUCOSE (AUTOMATED) 2022-04-16 13:14:00 Jessa Boles [facility] POCT GLUCOSE (AUTOMATED) 2022-04-16 01:41:00 Jessa Boles [facility] POCT GLUCOSE (AUTOMATED) 2022-04-15 21:53:00 Jessa Boles [facility] POCT GLUCOSE (AUTOMATED) 2022-04-15 16:20:00 Jessa Boles [facility] POCT GLUCOSE (AUTOMATED) 2022-04-15 13:28:00 Jessa Boles [facility] POCT GLUCOSE (AUTOMATED) 2022-04-14 22:36:00 Jessa Boles [facility] POCT GLUCOSE (AUTOMATED) 2022-04-14 22:36:00 Jessa Boles [facility] POCT GLUCOSE (AUTOMATED) 2022-04-14 17:12:00 Jessa Boles [facility] POCT GLUCOSE (AUTOMATED) 2022-04-14 17:12:00 Jessa Boles [facility] POCT GLUCOSE (AUTOMATED) 2022-04-14 13:15:00 Jessa Boles [facility] POCT GLUCOSE (AUTOMATED) 2022-04-14 13:15:00 Jessa Boles [facility] POCT GLUCOSE (AUTOMATED) 2022-04-14 01:36:00 Jessa Boles [facility] POCT GLUCOSE (AUTOMATED) 2022-04-14 01:36:00 Jessa Boles [facility] POCT GLUCOSE (AUTOMATED) 2022-04-13 22:07:00 Jessa Boles [facility] POCT GLUCOSE (AUTOMATED) 2022-04-13 22:07:00 Jessa Boles [facility] XR HIPS 2 VW RIGHT 2022-04-13 17:50:00 [facility] XR HIPS 2 VW RIGHT 2022-04-13 17:50:00 [facility] POCT GLUCOSE (AUTOMATED) 2022-04-13 17:08:00 Jessa Boles [facility] POCT GLUCOSE (AUTOMATED) 2022-04-13 17:08:00 Jessa Boles [facility] FL TIME OR (NON-REPORTABLE) 2022-04-13 16:39:00 Sunny Chowdhury [facility] FL TIME OR (NON-REPORTABLE) 2022-04-13 16:39:00 Sunny Chowdhury [facility] FEMUR INTRAMEDULLARY NAILING 2022-04-13 14:32:00 Jessa Duenas [facility] FEMUR INTRAMEDULLARY NAILING 2022-04-13 14:32:00 Jessa Duenas [facility] POCT GLUCOSE (AUTOMATED) 2022-04-13 12:51:00 Jessa Boles [facility] POCT GLUCOSE (AUTOMATED) 2022-04-13 12:51:00 Jessa Boles [facility] POCT GLUCOSE (AUTOMATED) 2022-04-13 09:44:00 Jessa Boles [facility] POCT GLUCOSE (AUTOMATED) 2022-04-13 09:44:00 Jessa Boles [facility] BASIC METABOLIC PANEL (NA, K, CL, CO2, GLUCOSE, BUN, CREATININE, CA) 2022-04-13 09:36:00 Veronica [facility] CBC WITHOUT DIFF 2022-04-13 09:36:00 Sunny Chowdhury [facility] VITAMIN D, 25-OH 2022-04-13 09:36:00 Inocente Aguirre [facility] BASIC METABOLIC PANEL (NA, K, CL, CO2, GLUCOSE, BUN, CREATININE, CA) 2022-04-13 09:36:00 Veronica [facility] CBC WITHOUT DIFF 2022-04-13 09:36:00 Sunny Chowdhury Un [facility] VITAMIN D, 25-OH 2022-04-13 09:36:00 Inocnete Aguirre [facility] POCT GLUCOSE (AUTOMATED) 2022-04-13 04:47:00 Jessa Boles [facility] POCT GLUCOSE (AUTOMATED) 2022-04-13 04:47:00 Jessa Boles [facility] POCT GLUCOSE (AUTOMATED) 2022-04-13 01:20:00 Jessa Boles [facility] POCT GLUCOSE (AUTOMATED) 2022-04-13 01:20:00 Jessa Boles [facility] POCT GLUCOSE (AUTOMATED) 2022-04-12 21:37:00 Jessa Boles [facility] POCT GLUCOSE (AUTOMATED) 2022-04-12 21:37:00 Jessa Boles [facility] XR KNEE <3 VW RIGHT 2022-04-12 16:58:00 Tenzin Wesley [facility] XR KNEE <3 VW RIGHT 2022-04-12 16:58:00 Tenzin Wesley [facility] ABORH CONFIRMATION (LAB ONLY) 2022-04-12 14:37:00 Inocente Aguirre [facility] ABORH CONFIRMATION (LAB ONLY) 2022-04-12 14:37:00 Inocente Aguirre [facility] POCT GLUCOSE (AUTOMATED) 2022-04-12 13:30:00 Jessa Boles [facility] POCT GLUCOSE (AUTOMATED) 2022-04-12 13:30:00 Jessa Boles [facility] HB ABO GROUPING 2022-04-12 12:09:00 [facility]12 12:09:00 [facility] / INR 2022-04-12 10:44:00 Kareen Aguirre [facility] ACTIVATED PARTIAL THRMPLAS RENEA 2022-04-12 10:44:00 Inocente Aguirre [facility] PROTHROMBIN TIME / INR 2022-04-12 10:44:00 Kareen Aguirre [facility] ACTIVATED PARTIAL THRMPLAS RENEA 2022-04-12 10:44:[address] [facility] LOWER EXTREMITY VEIN WITH COMPRESSION RIGHT (ONLY FOR RULE OUT DVT) 2022-04-12 08:50:48 Inocente Aguirre [facility] LOWER EXTREMITY VEIN WITH COMPRESSION RIGHT (ONLY FOR RULE OUT DVT) 2022-04-12 08:50:48 Inocente Aguirre [facility] URINALYSIS 2022-04-12 08:29:00 Inocente Aguirre [facility] URINE CULTURE 2022-04-12 08:29:[address] [facility] URINALYSIS 2022-04-12 08:29:00 Inocente Aguirre [facility] URINE CULTURE 2022-04-12 08:29:[address] [facility] XR CHEST 1 VW 2022-04-12 08:21:[address] [facility] XR CHEST 1 VW 2022-04-12 08:21:[address] [facility] HOSPITAL ADMISSION 2022-04-12 05:01:00 Doctor Un assigned, [place] [facility] POCT GLUCOSE (AUTOMATED) 2022-04-12 03:40:00 Thomas Connelly [facility] [facility] POCT GLUCOSE (AUTOMATED) 2022-04-12 02:36:00 Thomas Connelly [facility] COMP. METABOLIC PANEL (07364) 2022-04-12 00:49:00 Arnaldo Connelly [facility] CBC WITH DIFF 2022-04-12 00:49:00 Arnaldo Connelly [facility] GLYCOSYLATED HEMOGLOBIN (A1C) 2022-04-12 00:49:00 Hoa Martin [facility] GLYCOSYLATED HEMOGLOBIN (A1C) 2022-04-12 00:49:00 Hoa Martin [facility] CT HIP RIGHT WO CONTRAST 2022-04-12 00:36:19 Thomas Connelly [facility] XR PELVIS <3 VW 2022-04-11 22:51:56 [facility] RIGHT 2022-04-11 22:51:39 Arnaldo Connlely [facility] EMERGENCY DEPARTMENT DOCUMENTS 2022-04-11 05:01:00 Doctor Unassigned, [place] [facility] EMERGENCY SERVICES AGREEMENTS AND AUTHORIZATIONS 2022-04-11 05:01:00 Doctor Unassigned, [place] [facility] REFERRAL- REQUEST/RESPONSE 2020-07-31 06:01:00 Doctor Unassigned, [place] [facility] REFERRAL- REQUEST/RESPONSE 2020-07-17 06:01:00 Doctor Unassigned, [place] [facility] LIPID PANEL-Q 2019-03-15 15:27:00 Holger Jaffe [facility] BASIC METABOLIC PANEL$W/EGFR-Q 2019-03-15 15:27:00 Holger Jaffe [facility] POCT HEMOGLOBIN A1C TEST 2019-03-15 14:45:00 Kendall Jaffe [facility] Encounters Start Date/Time End Date/Time Encounter Type Admission Type Attending [facility] Care Facility Care Department Encounter ID Source 2022-05-12 18:02:55 Outpatient IBNS IBNS [id number] - [id number] Wilfred Kendall 2023-09-29 13:00:00 2023-09-29 13:00:00 Outpatient [facility] [id number] [facility] 2023-09-25 13:00:00 2023-09-25 13:00:00 Outpatient [facility]ONICA [facility] [id number] [facility] 2023-08-11 17:44:00 2023-08-20 09:37:00 Inpatient TC BURROUGHS [facility] [id number] [address] [facility] 2023-07-31 09:02:58 2023-07-31 09:02:58 Outpatient [facility] [id number] Edgard Phoenix 2023-07-29 00:00:00 2023-07-29 00:00:00 Telephone Omaira Ragsdale [facility] 1.2.840.114 350.1.13.10 4.2.7.2.686 [id number] [facility] 2023-07-24 13:20:00 2023-07-24 13:20:00 Outpatient R OMAIRA RAGSDALE [facility] [id number] [facility] 2023-07-17 00:00:00 2023-07-17 00:00:00 Refill Omaira Ragsdale [facility] 1.2.840.114 350.1.13.10 4.2.7.2.686 [id number] [facility] 2023-07-08 09:45:00 2023-07-08 09:45:00 Outpatient FRANKY BERRY [facility] [id number] [facility] 2023-07-05 00:00:00 2023-07-05 00:00:00 Refill Omaira Ragsdale [facility] 1.2.840.114 350.1.13.10 4.2.7.2.686 [id number] [facility] 2023-06-25 00:00:00 2023-06-25 00:00:00 Case Management Omaira Ragsdale Amada [facility] 1.2.840.114 350.1.13.10 4.2.7.2.686 [id number] [facility] 2023-06-25 00:00:00 2023-06-25 00:00:00 Refill Omaira Ragsdale Amada [facility] 1.2.840.114 350.1.13.10 4.2.7.2.686 [id number] [facility] 2023-06-24 00:00:00 2023-06-24 00:00:00 Patient Outreach Augusto Gloria Arevalo [facility] 1.2.840.114 350.1.13.10 4.2.7.2.686 [id number] [facility] 2023-06-23 09:54:11 2023-06-23 23:59:00 Hospital Encounter Omaira Ragsdale [facility] 1.2.840.114 350.1.13.10 4.2.7.2.686 [id number] [facility] 2023-06-23 09:45:00 2023-06-23 10:00:00 Business Unit Controller Visit Lab, Peter - Omaira Choi Amada [facility] 1.2.840.114 350.1.13.10 4.2.7.2.686 [id number] [facility] 2023-06-23 09:00:00 2023-06-23 09:38:04 Outpatient R OMAIRA RAGSDALE [facility] [id number] [facility] 2023-06-23 09:00:00 2023-06-23 09:38:04 Office Visit Omaira Ragsdale [facility] 1.84114 350.1.13.10 4.2.7.2.686 [id number] [facility] 2023-06-23 00:00:00 2023-06-23 00:00:00 Orders Only Doctor Unassigned, [place] [facility] 1.0.114 350.1.13.10 4.2.7.2.686 [id number] [facility] 2023-06-23 00:00:00 2023-06-23 00:00:00 Telephone Ary Omaira [facility] 1.84.114 350.1.13.10 4.2.7.2.686 [id number] [facility] 2023-06-18 08:30:00 2023-06-18 08:30:00 Outpatient R [facility] [id number] [facility] 2023-05-28 00:00:00 2023-05-28 00:00:00 Transition of Care Dar Rivers 1.84.114 350.1.13.10 4.2.7.2.686 [id number] [facility] 2023-05-24 15:56:00 2023-05-27 05:17:00 Inpatient U REGINALDO PROCTOR [facility] [id number] [facility] 2023-05-24 15:56:00 2023-05-27 05:17:00 Hospital Encounter Ezio Heath Bernard M Cintron, Nitza [facility] 1.84.114 350.1.13.10 4.2.7.2.686 [id number] [facility] 2023-05-27 00:00:00 2023-05-27 00:00:00 Telephone GrahamTito noble [facility] 1..840.114 350.1.13.10 4.2.7.2.686 [id number] [facility] 2023-01-23 10:28:00 2023-01-23 13:09:00 Emergency X ARNALDO CONNELLY [facility] ERT [id number] [facility] 2023-01-23 10:28:00 2023-01-23 13:09:00 Emergency Arnaldo Connelly S [facility] 1.840.114 350.1.13.10 4.2.7.2.686 [id number] [facility] 2022-10-08 00:00:00 2022-10-08 00:00:00 Outpatient GC_SEFP_Lof tin_T [facility] [id number] [facility] 2022-06-11 11:00:00 2022-06-11 11:00:00 Outpatient JESSA STALEY [facility] [id number] [facility] 2022-05-17 00:00:00 2022-05-17 00:00:00 Telephone Jessa Duenas [facility] 1..840.114 350.1.13.10 4.2.7.2.686 [id number] [facility] 2022-05-14 09:17:52 2022-05-14 23:59:00 Outpatient JESSA STALEY [facility] [id number] [facility] 2022-05-14 09:17:52 2022-05-14 23:59:00 Hospital Encounter Jessa Duenas [facility] 1.840.114 350.1.13.10 4.2.7.2.686 [id number] [facility] 2022-05-14 09:40:00 2022-05-14 10:32:14 Office Visit [place], Jessa D [facility] 1.2.840.114 350.1.13.10 4.2.7.2.686 [id number] [facility] 2022-05-14 00:00:00 2022-05-14 00:00:00 Orders Only Doctor Unassigned, [place] [facility] 1.2.840.114 350.1.13.10 4.2.7.2.686 [id number] [facility] 2022-04-17 00:00:00 2022-04-17 00:00:00 Transition of Care Joanna Mcclellan [facility] 1.2.840.114 350.1.13.10 4.2.7.2.686 [id number] [facility] 2022-04-12 00:51:00 2022-04-16 19:31:00 Hospital Encounter Jessa Duenas [facility] 1.2.840.114 350.1.13.10 4.2.7.2.686 [id number] [facility] 2022-04-13 09:20:00 2022-04-13 11:42:00 Surgery Jessa Duenas [facility] 1.2.840.114 350.1.13.10 4.2.7.2.686 [id number] [facility] 2022-04-12 00:00:00 2022-04-12 00:00:00 Orders Only Doctor Unassigned, [place] [facility] 1.2.840.114 350.1.13.10 4.2.7.2.686 [id number] [facility] 2022-04-11 17:11:00 2022-04-11 23:39:00 Emergency X ARNALDO CONNELLY [facility] ERT [id number] [facility] 2022-04-11 17:11:00 2022-04-11 23:39:00 Emergency X ARNALDO CONNELLY [facility] ERT [id number] [facility] 2022-04-11 17:11:00 2022-04-11 23:39:00 Emergency Arnaldo Connelly [facility] 1.2.840.114 350.1.13.10 4.2.7.2.686 [id number] [facility] 2021-12-26 03:45:00 2021-12-26 03:45:00 Outpatient GC_SEFP_Lof tin_T PRIV PRIV [id number] [facility] 2021-08-21 04:19:00 2021-08-21 04:19:00 Outpatient GC_SEFP_Lof tin_T PRIV PRIV [id number] [facility] 2021-08-21 04:19:00 2021-08-21 04:19:00 Outpatient GC_SEFP_Lof tin_T PRIV PRIV [id number] [facility] 2021-07-17 03:09:00 2021-07-17 03:09:00 Outpatient GC_SEFP_Lof tin_T PRIV PRIV [id number] [facility] 2021-06-20 01:03:00 2021-06-20 01:03:00 Outpatient GC_SEFP_Lof tin_T PRIV PRIV [id number] [facility] 2020-11-20 10:44:00 2020-11-20 10:44:00 Outpatient GC_SEFP_Lof tin_T PRIV PRIV [id number] [facility] 2020-10-23 02:59:00 2020-10-23 02:59:00 Outpatient GC_SEFP_Lof tin_T PRIV PRIV [id number] [facility] 2020-10-23 02:59:00 2020-10-23 02:59:00 Outpatient GC_SEFP_Lof tin_T PRIV PRIV [id number] [facility] 2020-10-23 02:59:00 2020-10-23 02:59:00 Outpatient GC_SEFP_Lof tin_T PRIV PRIV [id number] [facility] 2020-10-11 09:15:00 2020-10-11 09:15:00 Outpatient CHHAYA MENEZES [facility] GIE [id number] [facility] 2020-10-09 08:30:00 2020-10-09 08:30:00 Outpatient CHHAYA MENEZES [facility] [id number] [facility] 2020-09-17 13:53:52 2020-09-17 14:48:08 Office Visit Chhaya Medel [facility] 1.114 350.1.13.10 4.2.7.2.686 [id number] [facility] 2020-09-17 14:00:00 2020-09-17 14:00:00 Outpatient CHHAYA MENEZES [facility] [id number] [facility] 2020-08-21 13:30:00 2020-08-21 13:30:00 [id number] 2020-07-31 00:00:00 2020-07-31 00:00:00 Orders Only Doctor Unassigned, [place] [facility] 1..114 350.1.13.10 4.2.7.2.686 [id number] [facility] 2020-07-17 00:00:00 2020-07-17 00:00:00 Orders Only Doctor Unassigned, [place] [facility] ..114 350.1.13.10 4.2.7.2.686 [id number] [facility] 2019-03-15 10:08:15 2019-03-15 10:18:15 Business Unit Controller Visit Pcp-Lab Holger Jaffe [facility] 1..114 350.1.13.10 4.2.7.2.686 [id number] [facility] 2019-03-15 09:08:35 2019-03-15 10:06:59 Office Visit Holger Jaffe [facility] 1.2.840.114 350.1.13.10 4.2.7.2.686 [id number] [facility] 2019-03-15 00:00:00 2019-03-15 00:00:00 Orders Only Holger Jaffe [facility] 1.2.840.114 350.1.13.10 4.2.7.2.686 [id number] [facility] 2019-03-06 00:00:00 2019-03-06 00:00:00 Refill Alannah Holger [facility] 1.2.840.114 350.1.13.10 4.2.7.2.686 [id number] [facility] Results Test Description Test Time Test Comments Results Result Co mments Source [facility] GLUCOSE (AUTOMATED)2023-05-27 17:37:38* Test Item Value Reference Range Interpretation Comme [facility] POCT GLU (test code = 4479960779) 181 mg/dL 70-110 H Lab Interpretation (test cod e = 72101-3) Abnormal [facility] GLUCOSE (AUTOMATED)2023-05-27 14:29:20* Test Item Value Reference Range Interpretation Comme [facility] POCT GLU (test code = 8606410776) 176 mg/dL 70-110 H Notified Provide r Lab Interpretation (test code = 58300-0) Abnormal [facility] GLUCOSE (AUTOMATED)2023-05-27 11:54:08* Test Item Value Reference Range Interpretation Comme [facility] POCT GLU (test code = 7124091771) 159 mg/dL 70-110 H Lab Interpretation (test cod e = 61978-4) [facility] (NA, K, CL, CO2, GLUCOSE, BUN, CREATININE, CA)2023-05-27 11:26:44* Test Item Value Reference Range Interpretation Comme nts NA (test code = 2166182832) 136 mmol/L 135-145 K (test code = 7298842442) 4.0 mmol/L 3.5-5.0 CL (test code = 9045682752) 108 mmol/L 98-108 CO2 TOTAL (test code = 6120496275) 23 mmol/L 23-31 AGAP (test code = 0641462810) 5 2-16 BUN (test code = 3592447644) 18 mg/dL 7-23 GLUCOSE (test code = 7451033431) 139 mg/dL 70-110 H CREATININE (test code = 5654421505) 0.84 mg/dL 0.60-1.25 CALCIUM (test code = 2505134448) 8.3 mg/dL 8.6-10.6 L eGFR (test code = 73712-2) 99.8 mL/min/1.73m2 CKD-EPI eGFR (2020). Assuming creatinine has been stable day-to-day for at least three months, the eGFR indicates Category G1 (>= 90 mL/min/1.73 m2) Lab Interpretation (test code = 62895-7) [facility] 11:26:44* Test Item Value Reference Range Interpretation Comme nts MAGNESIUM (test code = 4696917404) 2.1 mg/dL 1.7-2.4 Lab Interpretation (test cod e = 14819-9) Normal [facility] GLUCOSE (AUTOMATED)2023-05-27 08:36:26* Test Item Value Reference Range Interpretation Comme nts POCT GLU (test code = 7804074311) 135 mg/dL 70-110 H Lab Interpretation (test cod e = 72485-2) Abnormal [facility] GLUCOSE (AUTOMATED)2023-05-27 05:09:14* Test Item Value Reference Range Interpretation Comme nts POCT GLU (test code = 6733273914) 140 mg/dL 70-110 H Lab Interpretation (test cod e = 63232-4) Abnormal [facility] GLUCOSE (AUTOMATED)2023-05-27 02:14:17* Test Item Value Reference Range Interpretation Comme nts POCT GLU (test code = 1572714635) 160 mg/dL 70-110 H Lab Interpretation (test cod e = 75171-0) Abnormal [facility] GLUCOSE (AUTOMATED)2023-05-26 23:25:11* Test Item Value Reference Range Interpretation Comme nts POCT GLU (test code = 0755019210) 117 mg/dL 70-110 H Lab Interpretation (test cod e = 58854-9) Abnormal [facility] METABOLIC PANEL (NA, K, CL, CO2, GLUCOSE, BUN, CREATININE, CA)2023-05-26 22:52:15* Test Item Value Reference Range Interpretation Comme nts NA (test code = 6559755384) 132 mmol/L 135-145 L K (test code = 3652394264) 4.1 mmol/L 3.5-5.0 CL (test code = 5993109234) 104 mmol/L 98-108 CO2 TOTAL (test code = 4781481682) 24 mmol/L 23-31 AGAP (test code = 0290067175) 4 2-16 BUN (test code = 4156604050) 26 mg/dL 7-23 H GLUCOSE (test code = 1088220071) 147 mg/dL 70-110 H CREATININE (test code = 6216072616) 1.25 mg/dL 0.60-1.25 CALCIUM (test code = 0848278281) 8.2 mg/dL 8.6-10.6 L eGFR (test code = 35119-5) 65.9 mL/min/1.73m2 CKD-EPI eGFR (2020). Assuming creatinine has been stable day-to-day for at least three months, the eGFR indicates Category G2 (60 - 89 mL/min/1.73 m2) Lab Interpretation (test code = 38050-0) Abnormal [facility] GLUCOSE (AUTOMATED)2023-05-26 21:04:42* Test Item Value Reference Range Interpretation Comme nts POCT GLU (test code = 8745096424) 181 mg/dL 70-110 H Lab Interpretation (test cod e = 08479-9) Abnormal [facility] GLUCOSE (AUTOMATED)2023-05-26 17:40:24* Test Item Value Reference Range Interpretation Comme nts POCT GLU (test code = 2922686579) 228 mg/dL 70-110 H Lab Interpretation (test cod e = 96384-3) Abnormal [facility] GLUCOSE (AUTOMATED)2023-05-26 14:56:56* Test Item Value Reference Range Interpretation Comme nts POCT GLU (test code = 3218522542) 269 mg/dL 70-110 H Lab Interpretation (test cod e = 98981-8) Abnormal [facility] GLUCOSE (AUTOMATED)2023-05-26 11:04:46* Test Item Value Reference Range Interpretation Comme nts POCT GLU (test code = 5916394650) 235 mg/dL 70-110 H Lab Interpretation (test cod e = 19935-3) Abnormal [facility] GLUCOSE (AUTOMATED)2023-05-26 08:48:18* Test Item Value Reference Range Interpretation Comme nts POCT GLU (test code = 0762727923) 250 mg/dL 70-110 H Lab Interpretation (test cod e = 93140-6) Abnormal [facility] GLUCOSE (AUTOMATED)2023-05-26 05:00:16* Test Item Value Reference Range Interpretation Comme nts POCT GLU (test code = 9755907477) 267 mg/dL 70-110 H Lab Interpretation (test cod e = 37088-5) Abnormal [facility] METABOLIC PANEL (NA, K, CL, CO2, GLUCOSE, BUN, CREATININE, CA)2023-05-26 02:40:40* Test Item Value Reference Range Interpretation Comme nts NA (test code = 1945958420) 130 mmol/L 135-145 L K (test code = 0646790322) 3.4 mmol/L 3.5-5.0 L CL (test code = 0931329584) 102 mmol/L 98-108 CO2 TOTAL (test code = 0133199924) 25 mmol/L 23-31 AGAP (test code = 0236546054) 3 2-16 BUN (test code = 7729889987) 30 mg/dL 7-23 H GLUCOSE (test code = 3360502499) 246 mg/dL 70-110 H CREATININE (test code = 3450488604) 1.43 mg/dL 0.60-1.25 H CALCIUM (test code = 4133220189) 8.0 mg/dL 8.6-10.6 L eGFR (test code = 54748-1) 56.1 mL/min/1.73m2 CKD-EPI eGFR (2020). Assuming creatinine has been stable day-to-day for at least three months, the eGFR indicates Category G3a (45 - 59 mL/min/1.73 m2) Lab Interpretation (test code = 97143-8) Abnormal [facility] GLUCOSE (AUTOMATED)2023-05-26 02:05:17* Test Item Value Reference Range Interpretation Comme [facility] POCT GLU (test code = 8310340785) 270 mg/dL 70-110 H Lab Interpretation (test cod e = 72915-3) [facility]normal [facility], [id number] 23:12:05* Test Item Value Reference Range Interpretation Comme [facility] VIT B12 (test code = 1115359343) 457 pg/mL 240-930 JULIANNA (test code = JULIANNA) Biotin has been reported to cause a positive bias, interpret results relative to patient's use of biotin. Lab Interpretation (test code = 64393-1) Normal [facility] GLUCOSE (AUTOMATED)2023-05-25 22:38:24* Test Item Value Reference Range Interpretation Comme [facility] POCT GLU (test code = 6157785185) 195 mg/dL 70-110 H Lab Interpretation (test cod e = 21738-2) Abnormal [facility]OL[facility] (NA, K, CL, CO2, GLUCOSE, BUN, CREATININE, CA)2023-05-25 21:03:54* Test Item Value Reference Range Interpretation Comme nts NA (test code = 8031238114) 133 mmol/L 135-145 L K (test code = 5605282393) 3.5 mmol/L 3.5-5.0 CL (test code = 0105774629) 101 mmol/L 98-108 CO2 TOTAL (test code = 6125211563) 25 mmol/L 23-31 AGAP (test code = 4695452715) 7 2-16 BUN (test code = 9390329962) 27 mg/dL 7-23 H GLUCOSE (test code = 0660021406) 193 mg/dL 70-110 H CREATININE (test code = 2514569728) 1.61 mg/dL 0.60-1.25 H CALCIUM (test code = 6736919571) 8.3 mg/dL 8.6-10.6 L eGFR (test code = 81889-4) 48.7 mL/min/1.73m2 CKD-EPI eGFR (2020). Assuming creatinine has been stable day-to-day for at least three months, the eGFR indicates Category G3a (45 - 59 mL/min/1.73 m2) Lab Interpretation (test code = 59771-1) Abnormal [facility] GLUCOSE (AUTOMATED)2023-05-25 20:03:50* Test Item Value Reference Range Interpretation Comme nts POCT GLU (test code = 0808323696) 191 mg/dL 70-110 H Lab Interpretation (test cod e = 67792-5) Abnormal [facility] GLUCOSE (AUTOMATED)2023-05-25 16:57:46* Test Item Value Reference Range Interpretation Comme nts POCT GLU (test code = 5483987652) 284 mg/dL 70-110 H Lab Interpretation (test cod e = 33431-3) Abnormal [facility], SERUM OR [id number] 15:51:27 * Test Item Value Reference Range Interpretation Comme nts OSMOLALITY (test code = 2692-2) 306 See_Comment H [Automated messa ge] The system which generated this result transmitted reference range: 278 - 305 mOsm/kg. The reference range was not used to interpret this result as normal/abnormal. Lab Interpretation (test code = 03390-7) Abnormal [facility] GLUCOSE (AUTOMATED)2023-05-25 15:37:24* Test Item Value Reference Range Interpretation Comme [facility] POCT GLU (test code = 4026792722) 328 mg/dL 70-110 H Lab Interpretation (test cod e = 99256-9) Abnormal [facility] METABOLIC PANEL (NA, K, CL, CO2, GLUCOSE, BUN, CREATININE, CA)2023-05-25 14:31:52* Test Item Value Reference Range Interpretation Comme nts NA (test code = 1441132403) 134 mmol/L 135-145 L K (test code = 6620746182) 4.4 mmol/L 3.5-5.0 Slight hemolysis CL (test code = 7039027914) 102 mmol/L 98-108 CO2 TOTAL (test code = 4702423525) 22 mmol/L 23-31 L AGAP (test code = 2553399358) 10 2-16 BUN (test code = 7945197859) 25 mg/dL 7-23 H Slight hemolysis GLUCOSE (test code = 7578396480) 359 mg/dL 70-110 H CREATININE (test code = 7225102463) 1.47 mg/dL 0.60-1.25 H CALCIUM (test code = 8244161280) 8.6 mg/dL 8.6-10.6 eGFR (test code = 99963-7) 54.3 mL/min/1.73m2 CKD-EPI eGFR (2020). Assuming creatinine has been stable day-to-day for at least three months, the eGFR indicates Category G3a (45 - 59 mL/min/1.73 m2) Lab Interpretation (test code = 88205-8) Abnormal [facility] GLUCOSE (AUTOMATED)2023-05-25 14:03:23* Test Item Value Reference Range Interpretation Comme nts POCT GLU (test code = 5684549609) 361 mg/dL 70-110 H Lab Interpretation (test cod e = 72099-8) Abnormal [facility] GLUCOSE (AUTOMATED)2023-05-25 11:08:19* Test Item Value Reference Range Interpretation Comme nts POCT GLU (test code = 8414982348) 397 mg/dL 70-110 H Lab Interpretation (test cod e = 42826-1) Abnormal [facility] GLUCOSE (AUTOMATED)2023-05-25 09:55:56* Test Item Value Reference Range Interpretation Comme nts POCT GLU (test code = 3502597739) 513 mg/dL 70-110 HH Notified Provide r Lab Interpretation (test code = 65196-8) Abnormal [facility] GLUCOSE (AUTOMATED)2023-05-25 08:02:45* Test Item Value Reference Range Interpretation Comme nts POCT GLU (test code = 6899725753) 456 mg/dL 70-110 HH Lab Interpretation (test cod e = 38404-4) Abnormal [facility] GLUCOSE (AUTOMATED)2023-05-25 05:22:24* Test Item Value Reference Range Interpretation Comme nts POCT GLU (test code = 7628981546) 424 mg/dL 70-110 H Notified Provide r Lab Interpretation (test code = 79154-7) [facility] [id number] 22:58:17 * Test Item Value Reference Range Interpretation Comme nts TSH (test code = 3211670424) 1.29 See_Comment [Automated [employer] ge] The system which generated this result transmitted reference range: 0.45 - 4.70 mIU/L. The reference range was not used to interpret this result as normal/abnormal. Lab Interpretation (test code = 20578-2) [facility] [id number] 22:44:59* Test Item Value Reference Range Interpretation Comme nts FREE T4 (test code = 8729800178) 1.49 See_Comment [Automated [employer]] The system which generated this result transmitted reference range: 0.78 - 2.20 ng/dL:. The reference range was not used to interpret this result as normal/abnormal. Lab Interpretation (test code = 91421-4) Normal [facility] HospitalTroponin I - Code [id number] 22:39:58* Test Item Value Reference Range Interpretation Comme nts TROPONIN I (test code = 5865905852) 0.020 ng/mL <=0.034 JULIANNA (test code = JULIANNA) Reference (Normal) Range (defined by the 99th percentile reference limit): <= 0.034 ng/mL Note: Cardiac troponin begins to rise 3-4 hours after the onset of ischemia. Repeat in 4-6 hours if the sample was drawn within 3-4 hours of the onset of the symptom and found normal. Diagnosis of myocardial injury is made with acute changes in cTn concentrations with at least one serial sample above the 99th percentile upper reference limit (URL), taken together with the patient's clinical presentation. Biotin has been reported to cause a negative bias, interpret results relative to patient's use of biotin. Lab Interpretation (test code = 54729-9) Normal [facility] HospitalACETAMINOPHEN2023-11-12 22:33:23* Test Item Value Reference Range Interpretation Comme nts ACETAMINOP (test code = 3990531355) 10.0-30.0 L JULIANNA (test code = JULIANNA) Toxic: Greater daniel n 200 ug/mL @ 4 hour post ingestion or greater than 50 ug/mL @ 12 hour post ingestion Lab Interpretation (test code = 22370-0) Abnormal [facility] HospitalSALICYLATE2023-11-12 22:33:18 SALICYLATE<10mg/L107/24/2022 4:33 PM [facility] LABORATORYTherapeutic Range: ? Analgesic and Antipyretic Use ? 20- 100 mg/L ? ? Anti-Inflammatory Use ? 100-250 mg/L Toxic Range: ? Greater than 300 mg/LUnEast [facility] Hospital and ClinicsaPTT - Code [id number] 22:29:56* Test Item Value Reference Range Interpretation Comme [facility] APTT Patient (test code = 3173-2) 29 See_Comment [Automated message] The system which generated this result transmitted reference range: 23 - 38 Seconds. The reference range was not used to interpret this result as normal/abnormal. JULIANNA (test code = JULIANNA) The [facility] patient population mean normal value for aPTT is 30 seconds. Lab Interpretation (test code = 74739-5) Normal [facility] HospitalETHANOL2023-11-12 22:27:51 ALCOHOL<10mg/dL05/24/2023 4:27 PM [facility]<10 [id number] Toxic>100 Depression of OUTDOOR STUDIES DIRECTOR>400 Fatalities ReportedUT [facility] HospitalProthrombin Time / INR - Code [id number] 22:26:55* Test Item Value Reference Range Interpretation Comme [facility] PROTIME PATIENT (test code = 5964-2) 13.1 See_Comment [Automated messa ge] The system which generated this result transmitted reference range: 12.0 - 14.7 Seconds. The reference range was not used to interpret this result as normal/abnormal. INR (test code = 6301-6) 1.0 Normal INR <1.1; Warfarin Therapeutic range 2.0 to 3.0 or 2.5 to 3.5, depending upon the indications. Lab Interpretation (test code = 25732-8) Normal [facility] HospitalPOMO GLUCOSE (AUTOMATED)2023-05-24 22:13:45* Test Item Value Reference Range Interpretation Comme [facility] POCT GLU (test code = 7484490554) 349 mg/dL 70-110 H Lab Interpretation (test cod e = 94604-7) Abnormal [facility] without Diff - Code [id number] 22:12:55* Test Item Value Reference Range Interpretation Comme nts WBC (test code = 6690-2) 7.61 See_Comment [Automated message] The system which generated this result transmitted reference range: 4.20 - 10.70 10*3/?L. The reference range was not used to interpret this result as normal/abnormal. RBC (test code = 789-8) 4.81 See_Comment [Automated message] The system which generated this result transmitted reference range: 4.26 - 5.52 10*6/?L. The reference range was not used to interpret this result as normal/abnormal. HGB (test code = 718-7) 15.9 g/dL 12.2-16.4 HCT (test code = 4544-3) 43.8 % 38.4-49.3 MCH (test code = 785-6) 33.1 pg 26.1-32.7 H MCV (test code = 787-2) 91.1 fL 81.7-95.6 MCHC (test code = 786-4) 36.3 g/dL 31.2-35.0 H PLT (test code = 777-3) 172 See_Comment [Automated message] The system which generated this result transmitted reference range: 150 - 328 10*3/?L. The reference range was not used to interpret this result as normal/abnormal. MPV (test code = 05354-1) 10.1 fL 9.8-13.0 RDW-CV (test code = 788-0) 11.6 % 12.1-15.4 L RDW-SD (test code = 91881-3) 38.7 fL 38.5-51.6 NRBC x10^3 (test code = 2397264791) See_Comment [Automated messa ge] The system which generated this result transmitted reference range: 10*3/?L. The reference range was not used to interpret this result as normal/abnormal. NRBC/100 WBC (test code = 2457784980) 0.0 See_Comment [Automated messa ge] The system which generated this result transmitted reference range: 0.0 - 10.0 /100 WBCs. The reference range was not used to interpret this result as normal/abnormal. IPF % (test code = 2049646600) Lab Interpretation (test code = 19246-2) Abnormal [facility] Glucose (Age >30 Days) - Code Stroke 2023-05-24 22:03:00* Test Item Value Reference Range Interpretation Comme nts POCT Glu (age>30days) (test code = 3342) 349 mg/dL 70-110 A Lab Interpretation (test cod e = 80179-0) Abnormal [facility] GLUCOSE (AUTOMATED)2022-04-16 22:48:05* Test Item Value Reference Range Interpretation Comme nts POCT GLU (test code = 7619402838) 302 mg/dL 70-110 H Lab Interpretation (test cod e = 37231-5) Abnormal [facility] GLUCOSE (AUTOMATED)2022-04-16 17:49:46* Test Item Value Reference Range Interpretation Comme nts POCT GLU (test code = 1136753804) 217 mg/dL 70-110 H Lab Interpretation (test cod e = 41899-9) Abnormal [facility] GLUCOSE (AUTOMATED)2022-04-16 13:25:07* Test Item Value Reference Range Interpretation Comme nts POCT GLU (test code = 6388429995) 183 mg/dL 70-110 H Lab Interpretation (test cod e = 47029-5) [facility] 01:42:57* Test Item Value Reference Range Interpretation Comme nts POCT GLU (test code = 4841787569) 270 mg/dL 70-110 H Lab Interpretation (test cod e = 06623-3) [facility]2022-[facility]-15 21:55:17* Test Item Value Reference Range Interpretation Comme nts POCT GLU (test code = 1465233856) 233 mg/dL 70-110 H Lab Interpretation (test cod e = 05027-4) [facility]2022-04-15 16:22:32* Test Item Value Reference Range Interpretation Comme nts POCT GLU (test code = 4753239225) 137 mg/dL 70-110 H Lab Interpretation (test cod e = 85442-0) Abnormal [facility] GLUCOSE (AUTOMATED)2022-04-15 13:29:48* Test Item Value Reference Range Interpretation Comme nts POCT GLU (test code = 1272898108) 115 mg/dL 70-110 H Lab Interpretation (test cod e = 45765-7) Abnormal [facility] GLUCOSE (AUTOMATED)2022-04-14 22:37:37* Test Item Value Reference Range Interpretation Comme nts POCT GLU (test code = 9156627813) 233 mg/dL 70-110 H Lab Interpretation (test cod e = 60163-7) Abnormal [facility] GLUCOSE (AUTOMATED)2022-04-14 22:37:37* Test Item Value Reference Range Interpretation Comme nts POCT GLU (test code = 0153863039) 233 mg/dL 70-110 H Lab Interpretation (test cod e = 70962-5) Abnormal [facility] GLUCOSE (AUTOMATED)2022-04-14 17:13:40* Test Item Value Reference Range Interpretation Comme nts POCT GLU (test code = 5181181321) 205 mg/dL 70-110 H Lab Interpretation (test cod e = 48538-7) Abnormal [facility] GLUCOSE (AUTOMATED)2022-04-14 17:13:40* Test Item Value Reference Range Interpretation Comme nts POCT GLU (test code = 1533934103) 205 mg/dL 70-110 H Lab Interpretation (test cod e = 28345-5) Abnormal [facility] GLUCOSE (AUTOMATED)2022-04-14 13:17:24* Test Item Value Reference Range Interpretation Comme nts POCT GLU (test code = 4731752192) 159 mg/dL 70-110 H Lab Interpretation (test cod e = 19612-6) Abnormal [facility] GLUCOSE (AUTOMATED)2022-04-14 13:17:24* Test Item Value Reference Range Interpretation Comme nts POCT GLU (test code = 9274823480) 159 mg/dL 70-110 H Lab Interpretation (test cod e = 33305-3) Abnormal [facility] GLUCOSE (AUTOMATED)2022-04-14 01:42:53* Test Item Value Reference Range Interpretation Comme nts POCT GLU (test code = 8075895041) 242 mg/dL 70-110 H Lab Interpretation (test cod e = 85663-5) Abnormal [facility] GLUCOSE (AUTOMATED)2022-04-14 01:42:53* Test Item Value Reference Range Interpretation Comme nts POCT GLU (test code = 4772559417) 242 mg/dL 70-110 H Lab Interpretation (test cod e = 56427-1) Abnormal [facility] GLUCOSE (AUTOMATED)2022-04-13 22:08:24* Test Item Value Reference Range Interpretation Comme nts POCT GLU (test code = 1792756964) 271 mg/dL 70-110 H Lab Interpretation (test cod e = 13111-1) Abnormal [facility] GLUCOSE (AUTOMATED)2022-04-13 22:08:24* Test Item Value Reference Range Interpretation Comme nts POCT GLU (test code = 2356690138) 271 mg/dL 70-110 H Lab Interpretation (test cod e = 72421-2) Abnormal [facility] GLUCOSE (AUTOMATED)2022-04-13 17:10:22* Test Item Value Reference Range Interpretation Comme nts POCT GLU (test code = 3749123292) 209 mg/dL 70-110 H Lab Interpretation (test cod e = 77866-7) Abnormal [facility] GLUCOSE (AUTOMATED)2022-04-13 17:10:22* Test Item Value Reference Range Interpretation Comme nts POCT GLU (test code = 9489890308) 209 mg/dL 70-110 H Lab Interpretation (test cod e = 22975-7) Abnormal [facility] GLUCOSE (AUTOMATED)2022-04-13 12:55:30* Test Item Value Reference Range Interpretation Comme nts POCT GLU (test code = 7769532516) 314 mg/dL 70-110 H Lab Interpretation (test cod e = 63274-3) Abnormal [facility] GLUCOSE (AUTOMATED)2022-04-13 12:55:30* Test Item Value Reference Range Interpretation Comme nts POCT GLU (test code = 0371905587) 314 mg/dL 70-110 H Lab Interpretation (test cod e = 70199-1) Abnormal [facility] GLUCOSE (AUTOMATED)2022-04-13 09:47:36* Test Item Value Reference Range Interpretation Comme nts POCT GLU (test code = 8183429347) 232 mg/dL 70-110 H Lab Interpretation (test cod e = 14191-6) Abnormal [facility] GLUCOSE (AUTOMATED)2022-04-13 09:47:36* Test Item Value Reference Range Interpretation Comme nts POCT GLU (test code = 6298225452) 232 mg/dL 70-110 H Lab Interpretation (test cod e = 91182-9) Abnormal [facility] GLUCOSE (AUTOMATED)2022-04-13 04:48:44* Test Item Value Reference Range Interpretation Comme nts POCT GLU (test code = 0023536884) 217 mg/dL 70-110 H Lab Interpretation (test cod e = 55901-4) Abnormal [facility] GLUCOSE (AUTOMATED)2022-04-13 04:48:44* Test Item Value Reference Range Interpretation Comme nts POCT GLU (test code = 7634628691) 217 mg/dL 70-110 H Lab Interpretation (test cod e = 28057-4) Abnormal [facility] GLUCOSE (AUTOMATED)2022-04-13 01:21:43* Test Item Value Reference Range Interpretation Comme nts POCT GLU (test code = 5612295962) 322 mg/dL 70-110 H Lab Interpretation (test cod e = 34607-0) Abnormal [facility] GLUCOSE (AUTOMATED)2022-04-13 01:21:43* Test Item Value Reference Range Interpretation Comme nts POCT GLU (test code = 2804820529) 322 mg/dL 70-110 H Lab Interpretation (test cod e = 69046-4) Abnormal [facility] GLUCOSE (AUTOMATED)2022-04-12 21:38:56* Test Item Value Reference Range Interpretation Comme nts POCT GLU (test code = 1277513120) 207 mg/dL 70-110 H Lab Interpretation (test cod e = 77117-9) Abnormal [facility] GLUCOSE (AUTOMATED)2022-04-12 21:38:56* Test Item Value Reference Range Interpretation Comme nts POCT GLU (test code = 6623035330) 207 mg/dL 70-110 H Lab Interpretation (test cod e = 71320-8) [facility]normal [facility]GLYCOSYLATED HEMOGLOBIN (A1C)2022-04-12 17:07:25* Test Item Value Reference Range Interpretation Comme nts HGB A1C (test code = 4548-4) 12.8 % 4-5.7 H JULIANNA (test code = JULIANNA) Reference RangesNormal: <5.7%Prediabetes: 5.7 - 6.4%Diabetes: > 6.5% Lab Interpretation (test code = 50454-9) [facility]normal [facility]GLYCOSYLATED HEMOGLOBIN (A1C)2022-04-12 17:07:25* Test Item Value Reference Range Interpretation Comme nts HGB A1C (test code = 4548-4) 12.8 % 4-5.7 H JULIANNA (test code = JULIANNA) Reference RangesNormal: <5.7%Prediabetes: 5.7 - 6.4%Diabetes: > 6.5% Lab Interpretation (test code = 72156-3) [facility]2022-04-12 15:11:41* Test Item Value Reference Range Interpretation Comme nts ABO & RH (test code = 20) A Positive Performed at [facility] Laboratory Services [facility] Blood [address] Free: [phone] No. [id number] [facility] Only)2022-04-12 15:11:41* Test Item Value Reference Range Interpretation Comme nts ABO & RH (test code = 20) A Positive Performed at [facility] Laboratory Services [facility] Blood [place] [address]Toll Free: [phone] No. [id number] [facility] GLUCOSE (AUTOMATED)2022-04-12 13:31:22* Test Item Value Reference Range Interpretation Comme nts POCT GLU (test code = 1805050665) 258 mg/dL 70-110 H Notified Provide r Lab Interpretation (test code = 87733-7) Abnormal [facility] GLUCOSE (AUTOMATED)2022-04-12 13:31:22* Test Item Value Reference Range Interpretation Comme nts POCT GLU (test code = 8536715776) 258 mg/dL 70-110 H Notified Provide r Lab Interpretation (test code = 02060-3) [facility]normal [facility] and Screen - ONCE [id number] 12:55:08 * Test Item Value Reference Range Interpretation Comme nts ABO & RH (test code = 20) A POSITIVE Performed at [facility] Laboratory Services - [facility] Blood [address] [address] Free: [phone] No. [id number] IAT (test code = 1185) Negative Performed at [facility] Laboratory Services - [address] [address] Free: [phone] No. [id number] [facility] Screen - ONCE [id number] 12:55:08 * Test Item Value Reference Range Interpretation Comme [facility] ABO & RH (test code = 20) A POSITIVE Performed at [facility] Laboratory [facility] - [address] [address] Free: [phone] No. [id number] IAT (test code = 1185) Negative Performed at [facility] Laboratory [facility] - [address] [address]Nlbe Free: [phone] No. [id number] [facility] HospitalaPTT2022-10-01 11:02:13* Test Item Value Reference Range Interpretation Comme [facility] APTT Patient (test code = 3173-2) See_Comment [Automated messa ge] The system which generated this result transmitted reference range: 26 - 36 Seconds. The reference range was not used to interpret this result as normal/abnormal. Lab Interpretation (test code = 63501-6) Normal [facility] HospitalProthrombin Time / [id number] 11:02:13* Test Item Value Reference Range Interpretation Comme [facility] PROTIME PATIENT (test code = 5964-2) See_Comment H [Automated messa ge] The system which generated this result transmitted reference range: 10.1 - 12.6 Seconds. The reference range was not used to interpret this result as normal/abnormal. INR (test code = 6301-6) Normal INR <1.1; Warfarin Therapeutic range 2.0 to 3.0 or 2.5 to 3.5, depending upon the indications. Lab Interpretation (test code = 22143-2) [facility]:02:13* Test Item Value Reference Range Interpretation Comme nts APTT Patient (test code = 3173-2) See_Comment [Automated messa ge] The system which generated this result transmitted reference range: 26 - 36 Seconds. The reference range was not used to interpret this result as normal/abnormal. Lab Interpretation (test code = 06999-8) Normal [facility] HospitalProthrombin Time / [id number] 11:02:13* Test Item Value Reference Range Interpretation Comme nts PROTIME PATIENT (test code = 5964-2) See_Comment H [Automated messa ge] The system which generated this result transmitted reference range: 10.1 - 12.6 Seconds. The reference range was not used to interpret this result as normal/abnormal. INR (test code = 6301-6) Normal INR <1.1; Warfarin Therapeutic range 2.0 to 3.0 or 2.5 to 3.5, depending upon the indications. Lab Interpretation (test code = 27485-4) Abnormal [facility] GLUCOSE (AUTOMATED)2022-04-12 03:45:18* Test Item Value Reference Range Interpretation Comme [facility] POCT GLU (test code = 6404209625) 267 mg/dL 70-110 H Lab Interpretation (test cod e = 74968-0) Abnormal [facility] GLUCOSE (AUTOMATED)2022-04-12 02:40:14* Test Item Value Reference Range Interpretation Comme [facility] POCT GLU (test code = 6144815090) 274 mg/dL 70-110 H Notified Provide r Lab Interpretation (test code = 30559-2) Abnormal [facility]. METABOLIC PANEL (12089)2022-04-12 01:15:25* Test Item Value Reference Range Interpretation Comme nts NA (test code = 2062083084) 137 mmol/L 135-145 K (test code = 8752833044) 4.6 mmol/L 3.5-5 CL (test code = 8660177727) 100 mmol/L 98-108 CO2 TOTAL (test code = 2560424855) 25 mmol/L 23-31 AGAP (test code = 5324634561) 2-16 BUN (test code = 6028023827) 22 mg/dL 7-23 GLUCOSE (test code = 6025656582) 311 mg/dL 70-110 H CREATININE (test code = 9089252191) 0.91 mg/dL 0.6-1.25 TOTAL BILI (test code = 5164116229) 0.8 mg/dL 0.1-1.1 CALCIUM (test code = 8691159116) 9.5 mg/dL 8.6-10.6 T PROTEIN (test code = 1398337987) 6.4 g/dL 6.3-8.2 ALBUMIN (test code = 3264696581) 3.7 g/dL 3.5-5 ALK PHOS (test code = 9762465428) 135 U/L 34-122 H ALTv (test code = 1742-6) 21 U/L 5-50 AST(SGOT) (test code = 7185728382) 18 U/L 13-40 eGFR (test code = 6014292022) mL/min/1.73m2 JULIANNA (test code = JULIANNA) Association of Glomerular Filtration Rate (GFR) and Staging of Kidney Disease* + --+ --+ ------+| GFR (mL/min/1.73 m2) ?| With Kidney Damage ?| ?Without Kidney Damage+ --------+ --------+ +| ?>90 ?| ?Stage one ?| ? Normal ?+ ---+ ---+ -------+| ?60-89 ?| ?Stage two ?| ? Decreased GFR ? + --+ --+ ------+| ?30-59 ?| ?Stage three ?| ? Stage three ? + --+ --+ ------+| ?15-29 ?| ?Stage four ? | ? Stage four ?+ ---+ ---+ -------+| ?<15 (or dialysis) ? ?| ?Stage five ? | ? Stage five ?+ ---+ ---+ -------+ *Each stage assumes the associated GFR level has been in effect for at least three months. ?Stages 1 to 5, with or without kidney disease, indicate chronic kidney disease. Notes: Determination of stages one and two (with eGFR >59mL/min/1.73 m2) requires estimation of kidney damage for at least three months as defined by structural or functional abnormalities of the kidney, manifested by either:Pathological abnormalities or Markers of kidney damage (including abnormalities in the composition of the blood or urine or abnormalities in imaging tests). Lab Interpretation (test code = 58658-6) Abnormal [facility] WITH [id number] 01:07:06* Test Item Value Reference Range Interpretation Comme nts WBC (test code = 6690-2) See_Comment [Automated messa ge] The system which generated this result transmitted reference range: 4.20 - 10.70 10*3/?L. The reference range was not used to interpret this result as normal/abnormal. RBC (test code = 789-8) See_Comment [Automated [employer] ge] The system which generated this result transmitted reference range: 4.26 - 5.52 10*6/?L. The reference range was not used to interpret this result as normal/abnormal. HGB (test code = 718-7) 15.5 g/dL 12.2-16.4 HCT (test code = 4544-3) 43.4 % 38.4-49.3 MCV (test code = 787-2) 90.4 fL 81.7-95.6 MCH (test code = 785-6) 32.3 pg 26.1-32.7 MCHC (test code = 786-4) 35.7 g/dL 31.2-35 H RDW-SD (test code = 09637-5) 37.2 fL 38.5-51.6 L RDW-CV (test code = 788-0) 11.2 % 12.1-15.4 L PLT (test code = 777-3) See_Comment [Automated [employer] ge] The system which generated this result transmitted reference range: 150 - 328 10*3/?L. The reference range was not used to interpret this result as normal/abnormal. MPV (test code = 96374-4) 10.2 fL 9.8-13 NRBC/100 WBC (test code = 6864097289) See_Comment [Automated [employer] ssage] The system which generated this result transmitted reference range: 0.0 - 10.0 /100 WBCs. The reference range was not used to interpret this result as normal/abnormal. NRBC x10^3 (test code = 9246976362) See_Comment [Automated messa ge] The system which generated this result transmitted reference range: 10*3/?L. The reference range was not used to interpret this result as normal/abnormal. GRAN MAT (NEUT) % (test code = 770-8) 72.0 % IMM GRAN % (test code = 4652504103) 1.00 % LYMPH % (test code = 736-9) 17.6 % MONO % (test code = 5905-5) 8.9 % EOS % (test code = 713-8) 0.2 % BASO % (test code = 706-2) 0.3 % GRAN MAT x10^3(ANC) (test code = 8880333647) 7.24 10*3/uL 1.99-6.95 H IMM GRAN x10^3 (test code = 4059688722) 0.10 10*3/uL 0-0.06 H LYMPH x10^3 (test code = 731-0) 1.77 10*3/uL 1.09-3.23 MONO x10^3 (test code = 742-7) 0.90 10*3/uL 0.36-1.02 EOS x10^3 (test code = 711-2) 0.06-0.53 L BASO x10^3 (test code = 704-7) 0.03 10*3/uL 0.01-0.09 Lab Interpretation (test code = 62104-7) Abnormal [facility] HospitalLIPID [id number] 09:00:00* Test Item Value Reference Range Interpretation Comments CHOLESTEROL, TOTAL-Q (test code = 2093-3) 122 mg/dL <200 HDL CHOLESTEROL-Q (test code = 2085-9) 36 mg/dL >40 L TRIGLYCERIDES-Q (test code = 2571-8) 209 mg/dL <150 H If a non-fa sting specimen was collected, considerrepeat triglyceride testing on a fasting specimenif clinically indicated. Rock et al. J. of Clin. Lipidol. 2015;9:129-169. IPY-CNCLHEKWDTU-N (test code = 68383-0) mg/dL (calc) Reference range: <100 Desirable range <100 mg/dL for primary prevention;?<70 mg/dL for patients with CHD or diabetic patients with > or = 2 CHD risk factors. LDL-C is now calculated using the Jose-Martinez calculation, which is a validated novel method providing better accuracy than the Friedewald equation in the estimation of LDL-C. Jose SS et al. TEE. 2013;310(19): 7705-8102 (http://education.TLabs.BioGreen Teck /faq/FCH291) CHOL/HDLC RATIO-Q (test code = 9830-1) See_Comment [Automated message] The system which generated this result transmitted reference range: <5.0 (calc). The reference range was not used to interpret this result as normal/abnormal. NON-HDL CHOLESTEROL-Q (test code = 56659-9) See_Comment For patients wit h diabetes plus 1 major ASCVD risk factor, treating to a non-HDL-C goal of <100 mg/dL (LDL-C of <70 mg/dL) is considered a therapeutic option. [Automated message] The system which generated this result transmitted reference range: <130 mg/dL (calc). The reference range was not used to interpret this result as normal/abnormal. JULIANNA (test code = JULIANNA) PERFORMED BY [employer]; [address] [place], [place] [id number]; KATELYN SPICER MD Lab Interpretation (test code = 19371-8) [facility]normal [facility] MET[facility]OLIC PANEL$[id number] 09:00:00* Test Item Value Reference Range Interpretation Comments GLUCOSE-Q (test code = 2345-7) 155 mg/dL 65-99 H ? Fasting refere nce interval For someone without known diabetes, a glucosevalue >125 mg/dL indicates that they may havediabetes and this should be confirmed with afollow-up test. UREA NITROGEN (BUN)-Q (test code = 3094-0) 16 mg/dL 7-25 CREATININE-Q (test code = 2160-0) 0.93 mg/dL 0.7-1.33 For patients >49 years of age, the reference limitfor Creatinine is approximately 13% higher for peopleidentified as -[place]. eGFR NON-AFR. CITIZEN OF [place]-Q (test code = 39766-1) See_Comment [Automated [employer]] The system which generated this result transmitted reference range: > OR = 60 mL/min/1.73m2. The reference range was not used to interpret this result as normal/abnormal. eGFR -Q (test code = 48730-9) See_Comment [Automated [employer]] The system which generated this result transmitted reference range: > OR = 60 mL/min/1.73m2. The reference range was not used to interpret this result as normal/abnormal. BUN/CREATININE RATIO-Q (test code = 3097-3) NOT APPLICABLE See_Comment [Automated [employer]] The system which generated this result transmitted reference range: 6 - 22 (calc). The reference range was not used to interpret this result as normal/abnormal. SODIUM-Q (test code = 2951-2) 143 mmol/L 135-146 POTASSIUM-Q (test code = 2823-3) 4.8 mmol/L 3.5-5.3 CHLORIDE-Q (test code = 2075-0) 105 mmol/L 98-110 CARBON DIOXIDE-Q (test code = 2027-9) 30 mmol/L 20-32 CALCIUM-Q (test code = 71032-5) 9.7 mg/dL 8.6-10.3 JULIANNA (test code = JULIANNA) PERFORMED BY [employer]; [address] [place] [id number]; KATELYN SPICER MD Lab Interpretation (test code = 58049-3) Abnormal [facility] HEMOGLOBIN A1C [id number] 14:45:00* Test Item Value Reference Range Interpretation Comme [facility] POCT HBA1C (test code = 4548-4) 9.1 % 4-6 A Lab Interpretation (test cod e = 01372-7) Abnormal [facility] HEMOGLOBIN A1C [id number] 14:45:00* Test Item Value Reference Range Interpretation [facility] POCT HBA1C (test code = 4548-4) 9.1 % 4-6 A Lab Interpretation (test cod e = 11751-7) Abnormal [facility] Notes Date/Time Note Provider Source 2023-07-29 09:31:37 [id number] 09:31:37 [place] order for Geeta Martin 3 initiated [facility]29/23[facility]:We have made multiple patient contacts and have still not been able to reach them. For this reason, we will move forward with canceling the order. Please reach out to us if you have further questions or concerns.Please review and advise.FARIBA: 06/23/23NOV: unscheduled [id number] encounter [id number]:33:37Telephone encounter [id number] for patient [id number] C-CDA narrative [id number] Flores [address] [id number] 9:33:[id number]|1.2 .[id number] Korina Evangelista LVN [facility]
[2023-08-20] MEDS ORDERED: ACETAMINOPHEN 500 MG TAB PO PRN (13:25)
[2023-08-20] MEDS ORDERED: D50W 25 GM/50 ML SYRINGE IV PRN (13:26)
[2023-08-20] MEDS ORDERED: GLUCAGON 1 MG/VIAL IM PRN (13:26)
[2023-08-20] MEDS ORDERED: D10W 125 ML IV PRN (13:35)
[2023-08-20] MEDS ORDERED: TIZANIDINE 4 MG TABLET PO PRN (13:37)
[2023-08-20] MEDS: INSULIN REGULAR (HUMAN) 100 UNIT/ML SQ SCH (16:31)
[2023-08-20] MEDS: APIXABAN 5 MG TABLET PO SCH (19:39)
[2023-08-20] MEDS: ATORVASTATIN 80 MG TAB PO SCH (19:40)
--- NOTE | 2023-08-21 | HP ---
Date of Admission: 08/20/2023 Time Of Service: 1:35 p.m. Chief Complaint: "I had stroke." History Of Present Illness: Mr. Rivera is a 58-year-old right-handed patient with a history of remote stroke in 1999 with some residual weakness, but he overcome, did well enough to ambulate wi th a cane. He has diabetes mellitus type 2, managed with metformin, and hypertension. He was pickin g up his grandchildren from school at the end of last month when he suddenly became confused and was aphasic. He was brought to local hospital, where he was evaluated with a code stroke and was sent by nubelo to [facility] on the 11 of August. His blood sugars were elevate d at 368 and systolic blood pressures in the 150s. His deficits consisted of right-sided weakness, r ight facial droop along with aphasia. He was not able to receive intravenous thrombolysis, but becau se of the poor history, intra-arterial treatment was addressed. He was followed up in the Neuro ICU, where his head imaging showed hypodensity in the left MCA distribution and CT angiogram showed occlu sahil of the left M2 branch of the middle cerebral artery. He did have a lumbar puncture at home, i ch did show CSF with elevated protein, but was negative for infection. His echocardiogram showed eje ction fraction of 75%. His CT scan of the chest and abdomen and pelvis did reveal a left renal mass, which was felt to have some difficulty evaluating following aggressive rehabilitation after a stroke . He is set to follow up with Dr. Damian at [facility]. In addition, the CT scan of the chest i dentified a small pulmonary embolus, which is treated with Eliquis 5 mg twice daily. In addition, he is on insulin sliding scale for his diabetes mellitus with Lantus 15 units daily. His blood pressur es did improve. Blood work did show hemoglobin of 12.1 and hematocrit 34.7, glucose is around 215. Prior to his stroke, he was fully independent despite the stroke in 1999, only ambulating with a cane . After his more recent stroke, he required partial assistance for bed mobilization, transfers, ambu lation with a rolling walker. In addition, required partial assistance for grooming, upper and lower body dressing, toileting. He does have some right-sided neglect and expressive aphasia. While he c an follow commands, he has significant room for improvement including his ability to complicate and c omprehend and express speech. Given his complex medical condition and risk of further complications, rehabilitation cannot be safely or effectively performed at a lower level of facility and he was the refore admitted to the inpatient rehabilitation unit for physical, occupational, and speech therapy. Past Medical History: As noted above. Past Surgical History: Surgery for low back pain and right hip surgery after fracture and left hip f racture that was nonoperative. Allergies: NO KNOWN DRUG ALLERGIES. Imaging: CT scan of the head showed the short-segment opacification of the proximal left M1 segment and a sylvian fissure which was concerning for near total occlusion. There are also distal branches of the left MCA which were opacified. No significant stenosis of the additional endocrine arteries i dentified. His chest x-ray showed no acute cardiopulmonary abnormalities on the 11 of August. He did have a diagnostic cerebral angiogram on 08/11/2023, the reason was acute cerebral ischemia, and there were findings of an occlusion of the distal M1 segment of left middle cerebral artery extending into the proximal M2 branch. There was a proximal appearance of the occlusion, is smooth and tapere d. That raised concerns for intracranial dissection with thrombosis. There was reconstitution of th e proximal M2 segment within the sylvian fissure with delayed filling of the distal branches with occ lusion of the distal angular branch. Allergies: NO KNOWN DRUG ALLERGIES. Medications: Tylenol Extra Strength 500 mg every 4 hours as needed, Eliquis 5 mg twice daily, Lipito r 80 mg at bedtime, senna-S 2 tablets at bedtime, insulin sliding scale, Semglee insulin 20 units ernesto ly, melatonin 3 mg at bedtime, Flomax 0.4 mg daily, Zanaflex 4 mg at bedtime as needed. Family History: Noncontributory. Social History: No alcohol, tobacco, or drug use. The patient lives at home with family. Single fa devorah home. Current Level Of Functioning: Currently, Mr. Rivera requires supervision for eating, moderate assista nce for oral hygiene, toileting, showering. Contact guard assist for upper body dressing, moderate a ssist for lower body dressing and donning and doffing footwear. Contact guard assistance for rolling left to right and right to left. Moderate assistance for yhb-lo-cqzuz and transfers from bed to elvis ir to toilet. Ambulation of 100 feet with moderate assistance required using a rolling walker. Review of Systems: Mr. Rivera is resting comfortably in bed. Speech pathologist is working with him. He does report bernabe e weakness and pain in the lower extremities, left and right side, mild difficulty getting his though ts and words together. Otherwise, he denies any fevers, chills, any nausea, vomiting. No headache. No psychiatric complaints. No dermatological complaints. No other positives noted on a 10-point sy stems review. Physical Examination: Vital Signs: Blood pressure 144/87, pulse 89, respiratory rate 17, temperature 97, oxygen saturation also 97%. General: Mr. Rivera is sitting in bed. HEENT: He appears normocephalic, atraumatic. Sclerae anicteric. Oropharynx pink and moist. Neck: Supple. Chest: Clear. Heart: Regular. Extremities: Show no significant edema or cyanosis. Neurologic: Alert and oriented to person, place, situation. He does follow simple commands without much difficulty, but has slow responses and mild difficulty with word finding. Despite his stroke, terra nick does have fairly symmetrical face with no focal findings in cranial nerves. He has diffuse weaknes s in lower extremities, but is able to lift both legs off the bed and hold them without significant p roblem and the arms as well as no significant loss of sensation in the left or right, more coordinati on difficulties. Laboratory Studies: Blood sugars ranged from 192 to 252. His white blood cell count 6.2, hemoglobin 12.1, hematocrit 34.7, platelets 170. Sodium 139, potassium 4, glucose 215, his BUN is 20, creatini ne is 1, calcium 8.6, magnesium 2.0. Rehabilitation Medical Assessment And Plan: Mr. Rivera is a 58-year-old patient with rehabilitation i mpairment category 01, stroke. His impairment group code is 01.2, right body involvement, left brain . Etiologic diagnosis of cerebral infarction due to embolism of the left middle cerebral artery. Hi s comorbidities are renal insufficiency, diabetes mellitus type 2, essential hypertension, expressive aphasia, dyslipidemia, hyperglycemia, pleural effusion, and some right hemiparesis in addition to ri ght visual field neglect and renal mass. Plan: 1.He will have physical, occupational, and speech therapy for 3.5 hours, 5 of 7 days. 2.We will continue with comorbid condition medications to address the PE and risk of stroke with Renetta phuong 5 mg twice daily, Tylenol 500 mg every 4 hours as needed for pain, Lipitor 80 mg at bedtime for dyslipidemia, vitamin D3 5000 units every seventh day will be continued, he has Semglee insulin 20 un its daily for diabetes mellitus along with insulin sliding scale and melatonin 3 mg at bedtime for in somnia. Continue Senokot-S 2 tablets at bedtime for constipation. Continue Flomax 0.4 mg daily for his prostate hypertrophy and continue Zanaflex 4 mg at bedtime for muscle spasms. Comorbidities That Are Impacting His Rehabilitation: Given the issue of a pulmonary embolus, the pat iedavid will be continued on the Eliquis 5 mg twice daily. However, given that he is at risk of bleedin g, we will have to have hemoglobin and hematocrit monitored carefully. In addition, with the neglect in the visual field, he is at risk of a missed stepping and falling and will have to be reminded of the area and field of neglect for him to pay attention in his new mobilization, where safety awarenes s will be reviewed paramount. We will work on the right lower extremity strength which will be helpf ul and as it is his dominant side, he will potentially require some use of the left side to relearn h ow to dress and perform activities of daily living efficiently and safely. Rehab Specific Plan: Mr. Rivera will have physical, occupational, and speech therapy for 3.5 hours, 5 of 7 days to improve his ability to transfer from bed to chair to toilet and to shower and to perfor m toileting as well. In addition, physical therapy to ambulate 250 feet with modified independence, up and down 10 steps with modified independence, propel a wheelchair 250 feet with modified independe nce and perform cognitive functioning, mitigation, expressive and receptive language with modified in dependence. Mr. Rivera has a good understanding of the process of admission to the inpatient rehabilitation facili and how he will benefit from physical, occupational, and speech therapy. If need be, additional s ervices will be consulted including the Hospitalist Service and the Cardiology Service. Given his ri sk of further complications and his complicated medical condition, rehabilitation cannot be safely or affectively performed at a lower level facility such as prison. Barriers To Discharge: He does require full anticoagulation with risk of bleeding, especially if the re is a fall with the back to the head, so fall precautions adhered to at all times with gait belt an d rolling walker. He also has comorbid conditions that require active monitoring including for his b lood sugars, for his blood pressures, and for pain management. Length Of Stay: 12 days. Disposition: Home with family and continue likely physical therapy depending on how he is doing. He may be able to go home with outpatient physical therapy. Prognosis: Good. Rehabilitation Goals: 1.Become independent with upper and lower body dressing, toileting, showering, donning and doffing f ootwear, managing all activities of daily living. 2.Become independent with ambulation of 250 feet with a rolling walker. 3.Independently propel a wheelchair 250 feet. 4.Independently go up and down 10 steps with bilateral handrails. 5.Independently perform cognitive functioning, medication management, safety awareness and planning for all physician followups. 6.The above goals were reviewed with Mr. Rivera and he is in agreement. By signing this document, I acknowledge I have personally performed a full physical examination with Mr. Rivera no later than 24 hours after his admission to the inpatient rehabilitation facility and det ermine that he is able to tolerate the above course of treatment at an intensive level for a reasonab le period of time. A detailed individualized plan of care for him will be completed by hospital day 4 based on the preadmission screen, history and physical, and therapy evaluations. GERSON Voice ID: [id number]
[2023-08-21 05:31] LABS: Absolute Lymphocytes (CBC) 1.9 K/uL (0.7-4.9); Hematocrit 33.8 % (39.6-49.0); Lymphocytes % 25.4 % (15.3-44.8); MCV 90.5 fL (80-100); MPV 8.3 fL (7.6-11.3); Platelets 209 thou/uL (152-406); RBC Red Blood Cell Count 3.73 M/uL (4.33-5.43)
[2023-08-21 05:33] LABS: Specific Gravity 1.018 (1.005-1.030); Urine Bacteria 20-50 /HPF (<20); Urine Bilirubin NEGATIVE (Negative); Urine Blood Trace (Negative); Urine Clarity Extremely Turbid (Clear); Urine Color Yellow (Yellow); Urine Glucose NEGATIVE (Negative); Urine Mucus Slight /HPF (None Seen); Urine Protein 3+ (Negative); Urine RBC <5 /HPF (None Seen); Urine Urobilinogen Normal (Normal)
[2023-08-21 05:52] LABS: Albumin 2.4 g/dL (3.4-5.0); Magnesium 2.1 mg/dL (1.6-2.4); Potassium 4.3 mEq/L (3.5-5.1); Prealbumin 16.3 mg/dL (20-40)
[2023-08-21] MEDS: TAMSULOSIN 0.4 MG SR CAP PO SCH (07:10)
[2023-08-21] MEDS ORDERED: VITAMIN D 5,000 UNIT CAP PO SCH ×2 (08:00)
[2023-08-21] MEDS: INSULIN GLARGINE 100 UNIT/ML SQ SCH (08:50)
--- NOTE | 2023-08-21 13:18 | P.RH.PN ---
Estimated Length of Stay: 11 Expected Discharge Date: 09/02/23 Discharge Disposition Plan: Home Family Support: Yes [facility] Goal: Mobility, Transfers, Self Care Vital Signs: Last Vital Signs Temp 97.3 F 08/21/23 08:00 Pulse 95 H 08/21/23 08:00 Resp 18 08/21/23 08:00 BP 123/69 08/21/23 08:00 Pulse Ox 95 08/21/23 08:00 Laboratory: Laboratory Last Values WBC 7.50 thou/uL (4.3-10.9) 08/21/23 05:07 RBC 3.73 M/uL (4.33-5.43) L 08/21/23 05:07 Hgb 12.2 g/dL (13.6-17.9) L 08/21/23 05:07 Hct 33.8 % (39.6-49.0) L 08/21/23 05:07 MCV 90.5 fL (80-100) 08/21/23 05:07 MCH 32.7 pg (27.0-35.0) 08/21/23 05:07 MCHC 36.1 g/dL (32.0-36.0) H 08/21/23 05:07 RDW 12.8 % (12.1-15.2) 08/21/23 05:07 Plt Count 209 thou/uL (152-406) 08/21/23 05:07 MPV 8.3 fL (7.6-11.3) 08/21/23 05:07 Neutrophils % 61.9 % (41.7-73.7) 08/21/23 05:07 Lymphocytes % 25.4 % (15.3-44.8) 08/21/23 05:07 Monocytes % 11.3 % (3.3-12.3) 08/21/23 05:07 Eosinophils % 1.1 % (0-4.4) 08/21/23 05:07 Basophils % 0.3 % (0-1.3) 08/21/23 05:07 Absolute Neutrophils 4.6 K/uL (1.8-8.0) 08/21/23 05:07 Absolute Lymphocytes 1.9 K/uL (0.7-4.9) 08/21/23 05:07 Absolute Monocytes 0.9 K/uL (0.1-1.3) 08/21/23 05:07 Absolute Eosinophils 0.1 K/uL (0-0.5) 08/21/23 05:07 Absolute Basophils 0.0 K/uL (0-0.5) 08/21/23 05:07 Sodium 140 mEq/L (136-145) 08/21/23 05:07 Potassium 4.3 mEq/L (3.5-5.1) 08/21/23 05:07 Chloride 109 mEq/L (98-107) H 08/21/23 05:07 Carbon Dioxide 27 mEq/L (21-32) 08/21/23 05:07 Anion Gap 8.3 mEq/L (5.0-15.0) 08/21/23 05:07 BUN 21 mg/dL (7-18) H 08/21/23 05:07 Creatinine 1.12 mg/dL (0.70-1.30) 08/21/23 05:07 Est GFR (CKD-EPI) 75 ml/min (=/>90) L 08/21/23 05:07 Glucose 202 mg/dL (74-106) H 08/21/23 05:07 POC Glucose 279 mg/dL (65-120) H 08/21/23 11:26 Calcium 8.6 mg/dL (8.5-10.1) 08/21/23 05:07 Magnesium 2.1 mg/dL (1.6-2.4) 08/21/23 05:07 Albumin 2.4 g/dL (3.4-5.0) L 08/21/23 05:07 Prealbumin 16.3 mg/dL (20-40) L 08/21/23 05:07 Urine Color Yellow (Yellow) 08/21/23 04:45 Urine Clarity Extremely turbid (Clear) H 08/21/23 04:45 Urine pH 6.0 (5.0-7.0) 08/21/23 04:45 Ur Specific [place] 1.018 (1.005-1.030) 08/21/23 04:45 Glucose (UA)(Auto) Negative (Negative) 08/21/23 04:45 Urine Ketones Negative (Negative) 08/21/23 04:45 Urine Blood Trace (Negative) H 08/21/23 04:45 Urine Nitrite Negative (Negative) 08/21/23 04:45 Urine Bilirubin Negative (Negative) 08/21/23 04:45 Urine Urobilinogen Normal (Normal) 08/21/23 04:45 Ur Leukocyte Esterase 75 Dain/uL (Negative) H 08/21/23 04:45 Urine RBC <5 /HPF (None Seen) 08/21/23 04:45 Urine WBC 20-50 /HPF (<5) H 08/21/23 04:45 Ur Squamous Epith Cells 5-10 /HPF (None Seen) 08/21/23 04:45 U Non-Squamous Epi Cells <5 /HPF (None Seen) 08/21/23 04:45 Urine Bacteria 20-50 /HPF (<20) H 08/21/23 04:45 Urine Mucus Slight /HPF (None Seen) 08/21/23 04:45 Urine Culture Reflexed Reflexed 08/21/23 04:45 Urine Total Protein 3+ (Negative) H 08/21/23 04:45 Weight: 198 lb Wound Present: No Negative Pressure Wound Therapy Present: No Physician Update: Low prealbumin will have protein supplementation. Making good progress with all therapy. Summary: Patient's care plan and exterminator goals have been reviewed and revised as necessary. Please see the Rehabilitation Signature page for all necessary signatures.
[2023-08-21] MEDS: METFORMIN HCL 500 MG TAB PO SCH (17:11)
[2023-08-21] MEDS: DOCUSATE NA/SENNA CONC 1 TAB PO PRN (20:04)
[2023-08-21] MEDS: MELATONIN 3 MG TABLET PO PRN (20:05)
[2023-08-22] MEDS: VITAMIN D 5,000 UNIT CAP PO SCH (07:55)
[2023-08-24] MEDS: METFORMIN HCL 500 MG TAB PO SCH (07:49)
--- NOTE | 2023-08-25 00:21 | PN ---
Date of Progress Note: 08/24/2023 Time Of Service: 1:20 p.m. Subjective: Mr. Rivera is resting comfortably in bed. He has no new complaints. He says he is doing very well, recovering great with his therapy. Right upper extremity and lower extremity strength is returning. He has no new complaints. Objective: No fevers, chills, nausea, vomiting. No significant myalgias, arthralgias, rash, headach e, weight change. Physical Examination: Vital Signs: Blood pressure 129/63, pulse up to 93, respiratory rate 16, temperature 97.2, O2 satura tion 96%. General: Mr. Rivera is lying in bed in between therapy sessions. HEENT: He is normocephalic, atraumatic. Sclerae anicteric. Oropharynx moist. Neck: Supple. Chest: Clear. Heart: Regular. Extremities: Show no significant edema or cyanosis. Neurological: He has mild weakness in the right upper and lower extremity and he is improving very w ell from that. Laboratory Studies: White blood cell count 7.5, hemoglobin 12.2, platelets 209. Blood glucose range d from 192 to 228. X-ray/imaging: No new x-rays or imaging. Medications: Tylenol Extra Strength 500 mg every 4 hours as needed, Eliquis 5 mg twice daily, Lipito r 80 mg at bedtime, vitamin D 1000 units weekly, Semglee insulin 20 units daily as a regular insulin sliding scale, melatonin 3 mg at bedtime, metformin 1000 mg twice daily, Senokot-S 2 at bedtime, Flom ax 0.4 mg daily, Zanaflex 4 mg at bedtime. Progress Made With Physical And Occupational Therapy Along With Speech Therapy: Today, he was able t o ambulate 450 feet, another 150 feet with standby assistance to independence using a rolling walker. He is able to go up and down 15 steps with standby assistance using bilateral handrails. With aleksandr phan, he answered simple yes and no questions with 90% accuracy. Responsive speech questions, answered with 40% accuracy. With occupational therapy, independent of supine to sit at edge of bed, bathing supervision, independent with upper and lower body dressing and oral care. Mr. Rivera is making very good progress with physical, occupational, and speech therapy and is likely ready to be discharged home and may benefit from outpatient physical therapy as he is mobilizing very well. Assessment: Mr. Rivera is a 58-year-old patient admitted to the rehabilitation unit with left middle cerebral artery stroke affecting right body, but he is doing very well with respect to that. He has renal insufficiency, diabetes mellitus type 2, hypertension, dyslipidemia, pleural effusion, improvin g right hemiparesis, and some visual deficits. Plan: 1.Continue with physical, occupational, and speech therapy for 3.5 hours, 5 of 7 days. 2.He has multiple comorbid conditions, they have been listed, and he is continuing his current list of medications including Eliquis for DVT and stroke risk reduction, on vitamin D, Semglee insulin, Se nokot, Flomax, Zanaflex, Lipitor, and Tylenol. Comorbidities That Are Continuing To Impact Rehabilitation: His blood sugars tend to range in the lo w 200s and his oral hypoglycemic medications will require slight adjustment. His metformin was incre ased today to 1000 mg twice daily and the blood sugars again will be followed. He is still on the in sulin 20 units subcutaneously daily. CÉSAR/VETOL Voice ID: [id number] Report ID: [id number]
[2023-08-25] MEDS: CRANBERRY FRUIT EXTRACT 200 MG CAP PO SCH (07:54)
[2023-08-25] MEDS: ONDANSETRON 4 MG (ODT) TAB PO PRN (17:00)
[2023-08-26 08:04] LABS: Absolute Lymphocytes (CBC) 1.5 K/uL (0.7-4.9); Hematocrit 35.2 % (39.6-49.0); Lymphocytes % 20.9 % (15.3-44.8); MCV 91.1 fL (80-100); MPV 7.6 fL (7.6-11.3); Platelets 231 thou/uL (152-406); RBC Red Blood Cell Count 3.86 M/uL (4.33-5.43)
[2023-08-26 08:16] LABS: Magnesium 1.9 mg/dL (1.6-2.4); Potassium 4.3 mEq/L (3.5-5.1)
[2023-08-26] MEDS: METFORMIN HCL 500 MG TAB PO SCH (17:28)
--- NOTE | 2023-08-26 21:48 | PN ---
Date of Progress Note: 08/26/2023 Time Of Service: 1:20 p.m. Subjective: Mr. Rivera is resting in bed. Speech pathology is beginning to work with him. He is doi ng excellent. Has no significant complaints. Believes his strength and deficits overall return to n ormal. Objective: No fevers, chills, nausea, vomiting, myalgias, arthralgias, rash, headache, or weight elvis nge. Physical Examination: Vital Signs: Blood pressure 132/78, pulse 95, respiratory rate 17, temperature 97.8, oxygen saturati on 95%. General: Mr. Rivera is lying in bed. He is in no acute distress. HEENT: He is normocephalic, atraumatic. Sclerae anicteric. Oropharynx pink and moist. Neck: Supple. Chest: Clear. Heart: Regular. Extremities: Show no significant clubbing, cyanosis, or edema. Laboratory Studies: White blood cell count 7.2, hemoglobin 12.4, platelets 231. Sodium 139, potassi um 4.3, chloride 109, carbon dioxide 27, BUN 22, creatinine 1.37, glucose ranged from 117 to 168, john cium 8.9, magnesium 1.9. X-ray/imaging: No new x-rays or imaging. Medications: Medications have been reviewed and his adjustments have been metformin to 750 mg twice daily with improved control of blood sugars. Progress Made With Physical, Occupational, And Speech Therapy: Today with physical therapy, he perfo rmed multiple [id number] transfers independently, [id number] transfers done independently. He a mbulated 350 feet twice, 250 feet twice, and 150 feet once with independence. Also he was able to go up and down 15 steps with independence 2 trials. With occupational therapy, independent with supine -to-sit transfers, independent with bathing, dressing upper and lower body, and grooming. With speec h, improvements noted in word discrimination from 31% to 86% accurate. Yes/no questions improved fro m 50% to 90% accurate. His Howes Naming test of the first 15 items on the Howes Naming Test improv ed from 80% to 87%. The patient is willing to continue outpatient speech therapy. Mr. Rivera has made excellent progress with physical, occupational, and speech therapy and is ready fo r discharge in the morning. Assessment: Mr. Rivera is a 58-year-old patient admitted to the rehabilitation unit with left middle cerebral artery stroke affecting the right body and he has recovered very well. He has renal insuffi ciency, diabetes mellitus type 2, hypertension, dyslipidemia, and some visual deficits from his strok e. Plan: 1.Continue with physical, occupational, and speech therapy outpatient. 2.His comorbid conditions are addressed by continuing his medications including Eliquis for DVT prop hylaxis. He has had the insulin which is Semglee insulin 20 units daily. He does have a sliding sca le and metformin 750 mg twice daily. His medications include Flomax, Senokot, Xanax, Zofran as neede d, atorvastatin, and Tylenol plus vitamin D. Comorbidities That Are Continuing To Impact Rehabilitation: Currently, his comorbidities are stably managed and do not negatively impact his rehabilitation. CÉSAR/MODL Voice ID: [id number] Report ID: [id number]
[2023-08-27 09:11] VITALS: BP 139/75; TEMP 97; BMI 25.6
== END 2023-08-27 11:45 | disposition home or self-care (01) | DRG 57 ==
LOC: 5TH 08-20 10:50
PROVIDERS: ADMIT Psychiatry & Neurology Neurology with Special Qualifications in Child Neurology; ATTEND Psychiatry & Neurology Neurology with Special Qualifications in Child Neurology
DX: I69.320 Aphasia following cerebral infarction (principal); J90 Pleural effusion, not elsewhere classified; I69.351 Hemiplegia and hemiparesis following cerebral infarction affecting right dominant side; I69.312 Visuospatial deficit and spatial neglect following cerebral infarction; N28.89 Other specified disorders of kidney and ureter; I10 Essential (primary) hypertension; E78.5 Hyperlipidemia, unspecified; E11.65 Type 2 diabetes mellitus with hyperglycemia
CPT/HCPCS: 36415; 80048; 81001; 82040; 82947; 83735; 84134; 85025; 87086; 87088; 92507; 92523; 97110; 97112; 97116; 97129; 97163; 97165; 97530; 97542; J1815; Q0162